=== PATIENT | male | born 1985 | race American Indian/Alaskan Native ===

== ENCOUNTER 2019-04-25 22:01 | Inpatient (IN) | payer MEDICAID, OTHER, SELFPAY ==
[2019-04-25 22:03] VITALS: BP 136/90; PULSE 135; RESP 24; TEMP 37.3; O2SAT 96
--- NOTE | 2019-04-25 22:09 | DI.RAD.S_ITS ---
PROCEDURE: XR ABDOMEN 1V INDICATIONS: vomiting TECHNIQUE: One view of the abdomen acquired. COMPARISON: [facility], , ABDOMEN 2 VIEW, 05/12/2015, 17:18. FINDINGS: Surgical changes and devices: None. Bowel: Multiple dilated loops of bowel noted in the right upper and lower abdomen. No radiographic evidence for free air. Soft tissues: No suspicious abdominal calcifications. Visualized solid organ contours appear normal in size. Bones: No suspicious bony lesions. IMPRESSION: Multiple dilated loops of bowel in the right abdomen possibly representing small bowel obstruction versus ileus. Dictated by: Devon Apple M.D. on 04/26/2019 at 8:51 Approved by: Devon Apple M.D. on 04/26/2019 at 8:53
[2019-04-25] MEDS: ONDANSETRON 4 MG/2 ML INJ IV (22:16)
[2019-04-25] MEDS: SODIUM CHLORIDE 0.9% 1,000 ML 1000 ML IV ×2 (22:16→23:16)
[2019-04-25 22:39] LABS: Hematocrit 48.2 % (41-53); Hemoglobin 16.1 g/dL (13.5-17.5); Mean Corpuscular HGB Conc 33.5 % (30-36); Mean Corpuscular Hemoglobin 28.8 PG (26-34); Platelet Count 388 X10^3/uL (150-400); Red Cell Distribution Width 14.9 % (11.6-14.8); White Blood Cell Count 7.8 X10^3/uL (4.5-11.0)
[2019-04-25 22:40] LABS: Add Manual Diff / Slide Review YES
[2019-04-25 22:45] LABS: Blood Urea Nitrogen 54 mg/dL (9-20); Calcium 9.8 mg/dL (8.4-10.2); Carbon Dioxide 20 mmol/L (22-32); Chloride 109 mmol/L (98-107); Estimated Glomerular Filt Rate 43.2 mL/min (>60); Glucose 147 mg/dL (70-100); HEMOLYSIS 16 (0-50); Potassium 3.8 mmol/L (3.4-5.1); Sodium 146 mmol/L (137-145)
[2019-04-25 23:10] LABS: Anisocytosis 1+; Neutrophils Absolute Manual 5694 /uL (3000-5900); RBC Morphology sb; Total Cells Counted 100
--- NOTE | 2019-04-25 23:27 | ED_ITS ---
HPI - Nausea/Vomiting/Diarrhea General Chief complaint: Nausea/Vomiting/Diarrhea Stated complaint: nausea Time Seen by Provider: 04/25/19 22:02 Source: family Mode of arrival: wheelchair Limitations: language barrier History of Present Illness HPI Narrative: 34-year-old male with history of tuberous sclerosis presents with mother and brother and a chief complaint of multiple episodes of vomiting since yesterday. He is not in any perceived pain. He has had no fever or change in bowel habits. He has been exposed to other ill persons with similar symptoms. He has had no recent antibiotics, exposure to bad food or other MD complaint: vomiting Onset (ago): day(s) Description of Vomiting: food contents Description of Diarrhea: watery Related Data Home Medications Medication Instructions Recorded Confirmed baclofen 0 PO SEE INSTRUCTIONS PRN 04/26/19 loratadine 10 mg PO DAILY 04/26/19 04/26/19 Previous Rx's Medication Instructions Recorded Wheelchair: Manual Lightweight 0 dev #1 05/16/13 [Ensure] #90 05/16/13 oxcarbazepine [Trileptal] 600 mg PO BID #120 tab 07/26/17 topiramate [Topamax] 0 PO QDAY #90 tab 07/26/17 polyethylene glycol 3350 [Miralax] 17 gm PO QDAY #1 bot 08/29/17 bisacodyl [Dulcolax (bisacodyl)] 10 mg LA Q DAY PRN PRN #15 sup 12/26/17 Vimpat 150 mg PO BID #60 tab 01/31/18 Allergies Allergy/AdvReac Type Severity Reaction Status Date / Time lamotrigine [LAMOTRIGINE] Allergy Mild Verified 04/25/19 22:10 tramadol [TRAMADOL] Allergy Mild RASH Verified 04/25/19 22:10 ibuprofen [IBUPROFEN] AdvReac Mild UPSET Verified 04/25/19 22:10 STOMACH Review of Systems Review of Systems patient non-verbal. ROS is from family at bedside Constitutional Reports anorexia and Reports fever(s) Gastrointestinal Gastrointestinal: Reports vomiting PFSH Social History household members: family and caregiver Smoking Status: Never smoker alcohol intake: never Exam Narrative Exam Narrative: GENERAL: Chronically-ill 34-year-old male in no obvious distress HEAD: Atraumatic. Normocephalic. No temporal or scalp tenderness. EYES: Pupils equal round and reactive. Extraocular motions intact. No scleral icterus. No injection or drainage. ENT: Dry mucous membranes Nose without bleeding, purulent drainage or septal hematoma. Throat without erythema, tonsillar hypertrophy or exudate. Uvula midline. Airway patent. NECK: Trachea midline. No JVD or lymphadenopathy. Supple, nontender, no meningeal signs. CARDIOVASCULAR: Regular rate and rhythm without murmurs, gallops, or rubs. RESPIRATORY: Clear to auscultation. Breath sounds equal bilaterally. No wheezes, rales, or rhonchi. GASTROINTESTINAL: Abdomen soft, non-tender, nondistended. Decreased bowel sounds. EXTREMITIES: No clubbing, cyanosis, or edema. No joint tenderness, effusion, or edema noted. BACK: Nontender without deformity or crepitance. No flank tenderness. SKIN: No rash or erythema. Initial Vital Signs Initial Vital Signs: Vital Signs Temperature 99.2 F 04/25/19 22:03 Pulse Rate 135 H 04/25/19 22:03 Respiratory Rate 24 04/25/19 22:03 Blood Pressure 136/90 04/25/19 22:03 Pulse Oximetry 96 04/25/19 22:03 Course Orders Ordered: ED Orders 04/25/19 22:09 XR abdomen 1V Stat 04/25/19 22:20 Basic Metabolic Panel Stat Complete Blood Count AUTO DIFF Stat 04/26/19 01:30 MRSA PCR Stat 04/26/19 05:00 Basic Metabolic Panel Stat Complete Blood Count AUTO DIFF Stat Magnesium Stat Sodium Chloride (Normal Saline 0.9%) 1,000 mls @ 75 mls/hr IV CONT ZHANG Last Admin: 04/26/19 02:30 Dose: 75 mls/hr Ondansetron HCl (Zofran) 4 mg IV Q4HR PRN PRN Reason: Nausea And Vomiting Last Admin: 04/26/19 03:55 Dose: 4 mg Admin: 04/25/19 22:16 Dose: 4 mg Ondansetron HCl (Zofran) 4 mg IV Q4HR PRN PRN Reason: Nausea And Vomiting Discontinued Medications Sodium Chloride (Normal Saline 0.9%) 1,000 mls @ 1,000 mls/hr IV BOLUS ONE Stop: 04/25/19 23:08 Last Infusion: 04/25/19 23:12 Dose: 0 mls/hr Admin: 04/25/19 22:16 Dose: 1,000 mls/hr Sodium Chloride (Normal Saline 0.9%) 1,000 mls @ 1,000 mls/hr IV BOLUS ONE Stop: 04/26/19 00:13 Last Infusion: 04/26/19 00:23 Dose: 0 mls/hr Admin: 04/25/19 23:16 Dose: 1,000 mls/hr Lorazepam (Ativan) 1 mg IV NOW ONE Stop: 04/26/19 00:29 Last Admin: 04/26/19 00:48 Dose: 1 mg Ondansetron HCl (Zofran) 4 mg IV Q4HR PRN PRN Reason: Nausea And Vomiting Last Admin: 04/26/19 00:23 Dose: 4 mg Reevaluation(s) Reevaluation #1: HR down to 100s after 1.5L. attempt to place NG, but patient fought and was very resistant Consultations Consultation #1: call to Gen Surg (Dr. Rodriguez) whom is happy to accept on his service. He requests NG tube, morning labs Vital Signs - 8 hr 04/25/19 22:03 04/26/19 00:06 04/26/19 00:51 Temperature 99.2 F Pulse Rate 135 H 104 H 106 H Respiratory Rate 24 20 Blood Pressure 136/90 Blood Pressure [Right Arm] 121/85 Pulse Oximetry 96 98 97 04/26/19 02:09 Temperature 98.4 F Pulse Rate 103 H Respiratory Rate 20 Blood Pressure 121/56 L Blood Pressure [Right Arm] Pulse Oximetry 97 MDM - Nausea/Vomiting/Diarrhea Lab Data Result diagrams: 04/25/19 22:20 04/25/19 22:20 Lab Results 04/25/19 04/25/19 04/26/19 Range/Units 22:20 22:20 01:30 WBC 7.8 (4.5-11.0) X10^3/uL RBC 5.60 (4.5-5.9) X10^6/uL Hgb 16.1 (13.5-17.5) g/dL Hct 48.2 (41-53) % MCV 86.0 (80-100) fL MCH 28.8 (26-34) PG MCHC 33.5 (30-36) % RDW 14.9 H (11.6-14.8) % Plt Count 388 (150-400) X10^3/uL Neut % (Auto) Not Reportable Lymph % (Auto) Not Reportable [place] % (Auto) Not Reportable Eos % (Auto) Not Reportable Baso % (Auto) Not Reportable Lymph # (Auto) Not Reportable [place] # (Auto) Not Reportable Baso # (Auto) Not Reportable Total Counted 100 Seg Neutrophils % 37.0 L (38-70) % Band Neutrophils % 36.0 H (3-7) % Lymphocytes % (Manual) 12.0 L (25-45) % Monocytes % (Manual) 15.0 H (2-11) % Neutrophils # (Manual) 5694 (7076-1752) /uL RBC Morphology sb Anisocytosis 1+ H Sodium 146 H (137-145) mmol/L Potassium 3.8 (3.4-5.1) mmol/L Chloride 109 H (98-107) mmol/L Carbon Dioxide 20 L (22-32) mmol/L BUN 54 H (9-20) mg/dL Creatinine 1.80 H (0.66-1.25) mg/dL Estimated GFR 43.2 L (>60) mL/min BUN/Creatinine Ratio 30.0 H (6-22) Glucose 147 H (70-100) mg/dL Calcium 9.8 (8.4-10.2) mg/dL Nasal Screen MRSA (PCR) Positive for mrsa H (Negative) Imaging Data Abdominal x-ray: Attestation: I personally reviewed and interpreted this imaging study as follows: My impression: SBO Discharge Plan Departure Patient Disposition: Admitted As Inpatient Clinical Impression: Bowel obstruction Qualifiers: Intestinal obstruction type: unspecified Intestinal obstruction extent: unspecified extent Qualified Code(s): K56.609 - Unspecified intestinal obstruction, unspecified as to partial versus complete obstruction Discharge Date/Time: 04/26/19 01:16 Interventions: ED Discharge Assessment Last Done: 04/26/19 01:15 Admit Date/Time: 04/26/19 00:44 Admit Provider: Stefan Rodriguez
[2019-04-26] VITALS (14 sets, daily range): BP systolic 118–151; BP diastolic 56–110; PULSE 98–121; RESP 15–24; TEMP 36.4–37.2; O2SAT 92–100
[2019-04-26] MEDS: ONDANSETRON 4 MG/2 ML INJ IV ×2 (00:23→03:55)
[2019-04-26] MEDS: LORazepam 2 MG/ML INJ 1 MG IV ×3 (00:48→23:29)
[2019-04-26] MEDS: SODIUM CHLORIDE 0.9% 1,000 ML 75 ML IV (02:30)
[2019-04-26 05:13] LABS: Mean Corpuscular HGB Conc 33.4 % (30-36); Mean Corpuscular Hemoglobin 28.8 PG (26-34); Mean Corpuscular Volume 86.2 fL (80-100); Platelet Count 316 X10^3/uL (150-400); Red Blood Cell Count 4.52 X10^6/uL (4.5-5.9); Red Cell Distribution Width 14.5 % (11.6-14.8); White Blood Cell Count 6.5 X10^3/uL (4.5-11.0)
[2019-04-26 05:14] LABS: Add Manual Diff / Slide Review YES
[2019-04-26 05:19] LABS: BUN Creatinine Ratio 28.6 (6-22); Blood Urea Nitrogen 40 mg/dL (9-20); Carbon Dioxide 23 mmol/L (22-32); Chloride 116 mmol/L (98-107); Estimated Glomerular Filt Rate 57.7 mL/min (>60); Glucose 120 mg/dL (70-100); HEMOLYSIS < 15 (0-50); Magnesium 2.4 mg/dL (1.6-2.3); Potassium 3.5 mmol/L (3.4-5.1); Sodium 146 mmol/L (137-145)
[2019-04-26 06:03] LABS: Anisocytosis 1+; Neutrophils Absolute Manual 4615 /uL (3000-5900); Total Cells Counted 100
--- NOTE | 2019-04-26 06:33 | PC.NURSE ---
NOC Shift: Pt 34 yr old developmentally delayed non verbal man with previous history of ABD surgery over 10 years ago after swallowing small toy objects per Mom. No having had several days of emesis, nausea, constipation and lack of appetite came to ED pt diagnosed w/SBO obstruction. Unable to place NG in ED, pt is non coopertive, needs several people to immobilize while placing NG. 14 F NG placed w/o problems to LIS for dark brown possibly coffee ground output. Once tube secured pt left NG alone. Needs close OBS to keep tube in. Pt unable to comprehend situation. NPO, BT's hypoactive. VSS, low grade temp at times. IVF's started. Incontinent baseling voiding wears attends. Pt is known to be ambulatory per Mom, has spastic motion of all limbs. Also with noted history of seizures can have them daily or not at all depends on pt's health. Per Mom pt will have increased seizure activity when he doesn't feel well. They are usually short in duration w/small tremors or stiffening extremities. Pt does take anti-seizure meds. Unable to assess for pain, however pt is more restless, agitated when awake and moans. Dr. Rodriguez to eval this AM.
[2019-04-26] MEDS: LACTATED RINGERS 500 ML 1000 ML IV (07:44)
[2019-04-26] MEDS: OXcarbazepine 150 MG TABLET 600 MG PO ×2 (08:12→22:20)
--- NOTE | 2019-04-26 09:08 | DI.CT.S_ITS ---
PROCEDURE: CT ABDOMEN PELVIS W CON INDICATIONS: bowel obstruction, bandemia TECHNIQUE: After the administration of intravenous contrast, 5 mm thick sections acquired from the diaphragm to the symphysis. 5 mm coronal and sagittal reformats were acquired. For radiation dose reduction, the following was used: automated exposure control, adjustment of mA and/or kV according to patient size. COMPARISON: [facility], CR, XR ABDOMEN 1V, 04/25/2019, 23:06. [facility], CT, ABDOMEN/PELVIS WITH CONTRAST, 05/02/2009, 7:49. FINDINGS: Image quality: There is mild motion artifact. ABDOMEN: Lung bases: There is mild dependent atelectasis. There is a small nodular opacity posteriorly in the right lower lobe measuring 4 mm on series 3 image 10. Heart size is normal. There is a small to moderate size hiatal hernia. Mild fluid distention of the visualized distal esophagus is noted with an air-fluid level. A nasogastric tube is in place extending into the stomach. Solid organs: No focal hepatic lesions. The gallbladder is distended without calcified gallstones or wall thickening. Biliary system is non dilated. Pancreas enhances normally. No pancreatic duct dilatation. Spleen is normal in size and enhancement. No adrenal nodules. Kidneys demonstrate no hydronephrosis. There is a probable hyperdense cyst posteriorly in the right kidney measuring up to 1.0 cm which appears similar to the prior CT. There are smaller slightly hypoattenuating foci also demonstrated bilaterally which also likely represent complex cysts.. Peritoneum and bowel: There is fluid distention of the stomach and small bowel, with small bowel loops measuring up to approximately 7.2 cm in diameter associated with a surgical anastomosis in the right lower quadrant. There are multiple associated air-fluid levels. There is fecalization within the distal small bowel in the midline in the pelvis with an associated transition point centered on series 2 image 75 just proximal to the terminal ileum. The cecum is displaced into the left hemiabdomen with an inverted configuration. There are short segments of mild colonic wall thickening in the sigmoid colon which may reflect a mild colitis. Marked colonic stool distention is noted in the rectum and distal sigmoid colon suggestive of impaction. No free air or free fluid. Nodes and vessels: No retroperitoneal or mesenteric adenopathy by size criteria. Aorta and inferior vena cava are normal in size. Miscellaneous: No ventral hernias. PELVIS: Genitourinary: Bladder wall thickness is normal. Miscellaneous: No inguinal hernias or adenopathy. Bones: No suspicious bony lesions. No vertebral body compression fractures. IMPRESSION: 1. Findings consistent with a small bowel obstruction, likely high-grade, with a transition point in the distal small bowel just proximal to the terminal ileum located along the midline in the lower abdomen. Findings may be related to adhesions. 2. Associated displacement of the cecum into the left abdomen with an inverted configuration is suggestive of a cecal bascule. No evidence of associated colonic obstruction. 3. Short segment of mild colonic wall thickening distally may reflect a mild colitis. Stool distention in the rectosigmoid colon may reflect impaction. 4. Probable hyperdense cysts in the kidneys bilaterally. 5. Small to moderate size hiatal hernia. Dictated by: William Gann M.D. on 04/26/2019 at 9:24 Approved by: William Gann M.D. on 04/26/2019 at 9:46
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
--- NOTE | 2019-04-26 10:12 | PC.NURSE ---
Addendum entered by Prisca Adan R.N. 04/26/19 12:46: ngt pulled out by pt- replaced with 16fr right nare with assist from staff and pts father- continues to drain bile-like material Original Note: pt tolerated approx 400cc of po contrast via ngt prior to ct scan- he did have emesis of approx 100cc just prior to scan- he continues to have intermittent hiccups- incont of urine, also receiving iv bolus of LR. TELEPHONE CALL FROM DR. MELENDEZ (RADIOLOGY) R/T CT SCAN- message left with corporate legal intern - who left note also, called in to circulating rn to make sure nothing was urgent. no new orders at this time
--- NOTE | 2019-04-26 15:50 | P.HP_ITS ---
History of Present Illness Date Patient Seen: 04/26/19 Time Patient Seen: 07:00 Chief complaint: nausea Narrative: 34 yo nonverbal man with developmental delay and tuberous sclerosis with a seizure disorder in this setting he presented to ER overnight with over 24hrs of vomiting. Of note pt has a history of bowel resection after ingesting a hackie sac and pen cap via a large midline laperotomy incision 10yrs ago. A NGT was placed with ongoing bilious output. Over the morning the pt has had ongoing hiccups and intermittent tackycardia. He has not been febrile. Unable to obtain detailed history. CT scan this am demonstrated multiple dilated small bowel loops with high grade obstruction in the distal ileum posteriorly. Social situation is complex - Per state of [place] DPOA is maternal grandfather who is not present or immediately available. He is however en route at some point. His biologic mother is present as is step father. Both are quite concerned. Patient History Medical History (Updated 04/26/19 @ 16:30 by Stefan Rodriguez MD) Developmental delay of gross and fine motor function (Acute) Seizure (Acute) Tuberous sclerosis (Acute) Surgical History (Updated 04/26/19 @ 16:30 by Stefan Rodriguez MD) H/O brain surgery (Acute) History of intestinal surgery (Acute) Social History household members: family and caregiver Smoking Status: Never smoker alcohol intake: never Family & Social History Social History: household members family,caregiver Prior Living Arrangements House Safety & Behavioral: Feels Safe in Current Yes Environment Been Physically Hurt or No Threatened By a Person Suicidal Ideation Description None Suicide Plan Description No Plan Tobacco & Substance use: Smoking Status Never smoker alcohol intake never Substance Use Type does not use Meds Home Medications Medication Instructions Recorded Confirmed Type Vimpat 150 mg PO BID #60 tab 01/31/18 04/26/19 Rx Wheelchair: Manual Lightweight 1 dev MISCELLANEOUS DIRECTED 04/26/19 04/26/19 History [Ensure] 1 ea PO DIRECTED 04/26/19 04/26/19 History baclofen 0 tab PO SEE INSTRUCTIONS PRN 04/26/19 04/26/19 History bisacodyl [Dulcolax (bisacodyl)] 10 mg [place] PRN PRN 04/26/19 04/26/19 History loratadine 10 mg PO DAILY 04/26/19 04/26/19 History oxcarbazepine 600 mg PO BID 04/26/19 04/26/19 History polyethylene glycol 3350 [Miralax] 17 gm PO DAILY 04/26/19 04/26/19 History topiramate 100 mg PO BEDTIME 04/26/19 04/26/19 History topiramate [Topamax] 200 mg PO QAM 04/26/19 04/26/19 History Allergies Allergy/AdvReac Type Severity Reaction Status Date / Time lamotrigine [LAMOTRIGINE] Allergy Mild Verified 04/25/19 22:10 tramadol [TRAMADOL] Allergy Mild RASH Verified 04/25/19 22:10 ibuprofen [IBUPROFEN] AdvReac Mild UPSET Verified 04/25/19 22:10 STOMACH Review of Systems Review of Systems unobtainable due to mental status Exam Vital Signs (past 8 hours): - 04/26/19 07:55 04/26/19 11:38 Temperature 98.6 F 98.7 F Pulse Rate 111 H 98 H Respiratory Rate 18 Blood Pressure 142/87 H 132/78 Pulse Oximetry 96 97 Oxygen Delivery Method Room Air Narrative Exam Narrative: unwell, uncomfortable, grinding teath, Const Orientation: confused [facility] Head: normal to inspection Nose: nares normal Mouth: oral mucosae normal and lip normal Eyes Eyelids: eyelids normal Conjunctivae: conjunctivae normal Sclera: sclerae normal Neck Neck: other (No thyromegally) Chest Chest: other (LCTAB , regular respiratory effort) Cardio Rhythm: regular rhythm Heart Sounds: S1 normal, S2 normal, no gallops, no murmurs and no rubs GI Other: abd with midline laperotomy incision well healed, distended, no masses, no BS, no HSM non tender but upon performing other noxious stimuli - nail compression - no discomfort noted as well. Skin General: no rashes or lesions noted Neuro General: alert and awake Psych Appearance: grossly normal Affect: normal affect Objective Labs Result Diagrams: 04/26/19 04:49 04/26/19 04:49 Labs: Laboratory Results - last 24 hr 04/25/19 04/25/19 04/26/19 22:20 22:20 01:30 WBC 7.8 RBC 5.60 Hgb 16.1 Hct 48.2 MCV 86.0 MCH 28.8 MCHC 33.5 RDW 14.9 H Plt Count 388 Neut % (Auto) Not Reportable Lymph % (Auto) Not Reportable [place] % (Auto) Not Reportable Eos % (Auto) Not Reportable Baso % (Auto) Not Reportable Lymph # (Auto) Not Reportable [place] # (Auto) Not Reportable Baso # (Auto) Not Reportable Total Counted 100 Seg Neutrophils % 37.0 L Band Neutrophils % 36.0 H Lymphocytes % (Manual) 12.0 L Monocytes % (Manual) 15.0 H Eosinophils % (Manual) Myelocytes % Neutrophils # (Manual) 5694 RBC Morphology sb Anisocytosis 1+ H Sodium 146 H Potassium 3.8 Chloride 109 H Carbon Dioxide 20 L BUN 54 H Creatinine 1.80 H Estimated GFR 43.2 L BUN/Creatinine Ratio 30.0 H Glucose 147 H Calcium 9.8 Magnesium Nasal Screen MRSA (PCR) Positive for mrsa H 04/26/19 04/26/19 04:49 04:49 WBC 6.5 RBC 4.52 Hgb 13.0 L Hct 39.0 L MCV 86.2 MCH 28.8 MCHC 33.4 RDW 14.5 Plt Count 316 Neut % (Auto) Not Reportable Lymph % (Auto) Not Reportable [place] % (Auto) Not Reportable Eos % (Auto) Not Reportable Baso % (Auto) Not Reportable Lymph # (Auto) Not Reportable [place] # (Auto) Not Reportable Baso # (Auto) Not Reportable Total Counted 100 Seg Neutrophils % 36.0 L Band Neutrophils % 35.0 H Lymphocytes % (Manual) 14.0 L Monocytes % (Manual) 13.0 H Eosinophils % (Manual) 1.0 L Myelocytes % 1.0 H Neutrophils # (Manual) 4615 RBC Morphology See below Anisocytosis 1+ H Sodium 146 H Potassium 3.5 Chloride 116 H Carbon Dioxide 23 BUN 40 H Creatinine 1.40 H Estimated GFR 57.7 L BUN/Creatinine Ratio 28.6 H Glucose 120 H Calcium 8.0 L Magnesium 2.4 H Nasal Screen MRSA (PCR) Assessment & Plan Assessment & Plan narrative: 34 yo non verbal man with prior exlap 10yrs ago for bowel obstruciton after foreign body ingestion. Now with high grade obstruction on imaging in the setting of an uncomfortable, non examine able pt with intermittent tachycardia and a 35% bands on diff. Due to worrisome features in pt cannot clearly follow - prudent decision is to operate. Mother desires surgery. Discussed risks and benifits incluidng bleeding infection injury to bowel or other stuctures, aspiration. Mother signed consent. DPOA - Maternal grandfather on route. Given risks of delay - will move forward Quality VTE Deep Vein Thrombosis/Pulmonary Embolism Present on Admission: No
--- NOTE | 2019-04-26 18:51 | PC.NURSE ---
Addendum entered by Mimi Thomas R.N. 04/26/19 22:43: 2240 - Patient recovered in room by PACU nurse. Dressing and binder to abdomen C/D/I. Cummings in place. NG tube remains in place. SCD's on. IV fluids running per orders. No signs of pain noted at this time. Original Note: 1850 - Patient taken to surgery by surgical staff.
[2019-04-26] MEDS: LACTATED RINGERS 1,000 ML 42 ML IV ×2 (19:50→20:13)
--- NOTE | 2019-04-26 19:52 | SUR.OPER ---
Supine on padded OR bed, head on pillow, arms secured on padded arm boards at <90 degrees abduction, legs uncrossed, safety belt at thigh, pillow under knees, tape over blanket over lower legs.
[2019-04-26] MEDS: CEFAZOLIN 2 GM/100 ML FROZ.PIGGY IV (19:55)
[2019-04-26] MEDS: metroNIDAZOLE 500 MG/100 ML PIGGYBACK 100 MG IV (20:27)
[2019-04-26] MEDS: CEFTRIAXONE 2 GM/50 ML FROZ.PIGGY IV (20:33)
--- NOTE | 2019-04-26 21:30 | PM.OP.1 ---
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 He presented to the emergency department with over 24 hours of nausea and emesis. On CT scan he was found to have what appeared to be a high-grade bowel obstruction in the terminal ileum. A large amount of stool within the rectum. In the ICU who is becoming progressively ill and consequently taken to the operating room. 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 Majority of small bowel in the right abdomen. No true ligament of Treitz 4) hard inspissated stool within the rectum Closure Type: primary Specimen(s): none sent Estimated Blood Loss (mL): 20 Procedure in detail: Patient was brought to the operating room he was intubated without incident. He was prepped and draped in the usual sterile fashion and time-out was completed. His previous midline laparotomy incision was then opened sharply fascia just above the umbilicus the linia alba was scored and then elevated with Preston clamps. With careful meticulous dissection using Metzenbaum. The peritoneum was opened, a finger sweep confirmed the absence of significant localized adhesive disease the finger was slowly advanced along the entire length of the incision from approximately the mid point between the xiphoid process in the umbilicus to approximately the midpoint between the umbilicus and the pubic symphysis. Upon inspection of the abdominal contents the small bowel was markedly distended hyperemic but viable. A loop of small bowel was grasped and was traced running and eviscerating the bowel at this same time period. There were some adhesive bands but overall there was a paucity of adhesive disease. Significant adhesions when encountered were lysed using primarily sharp dissection. Ultimately as we progressed we learned we were progressing distally. The terminal ileum was encountered and then the cecum. The appendix had been removed. The cecum was in the left abdomen. The entirety of the large bowel was then run. The entire large bowel was decompressed but there was significant hard stool within it -particularly volumous within the rectum. As we are running this bowel we encountered an area of soft but quite firm material approximately 10 cm from the ileal cecal valve within the terminal ileum. It appeared that this was the cause of the obstruction. However we proceeded to run the bowel in the opposite direction proceeding proximally following up high into the right upper quadrant and eventually into what was felt to be the distal duodenum. Of note there was no ligament of Treitz with the junction between the duodenum and jejunum occurring in the right upper quadrant without an over bridging transverse mesocolon. At this point we elected to perform a 2-1/2 cm enterotomy in transverse orientation and extract the obstructing contact. Two tacking sutures were applied on the anti mesenteric aspect of the terminal ileum they were placed under tension and the terminal ileum was split using electrocautery. The area had previously been toweled off. Using a ring forceps 3 fiberous sanitary wipes were extracted from the lumen of the terminal ileum. The lumen was palpated there are no residual masses within it. A significant degree of the intraluminal fluid was suctioned out. The enterotomy was then closed in a double-layer fashion transversely. Mucosal layer of 3 0 Vicryl, seromuscular layer of interrupted 3 0 silk. The repair was palpated and the lumen found to be well open. At this point we turned our attention to the inspissated stool within the rectum. With a finger from below and pressure from above several significant balls of stool were extracted manually. The remaining stool appeared to be rather soft. The intestines were then placed back within the abdomen. Abdomen was copiously irrigated. Fascia closed using 0 PDS suture in a simple continuous running fashion. Subcutaneous tissue irrigated and skin closed using rafael. Patient was extubated without incident Complications: none Condition: critical Disposition: ICU Plan for aftercare: NG tube decompression NPO Enemas
[2019-04-26] MEDS: fentaNYL 100 MCG/2 ML INJ 50 MCG IV ×2 (22:10→22:15)
--- NOTE | 2019-04-26 22:18 | SUR.PHASEI ---
recovery in icu rom 102 due to pt isolation
[2019-04-26] MEDS: HYDROMORPHONE 1 MG INJ 0.5 MG IV (23:29)
[2019-04-26] MEDS: LACTATED RINGERS 1,000 ML 75 ML IV (23:44)
[2019-04-27] VITALS (25 sets, daily range): BP systolic 113–153; BP diastolic 60–90; PULSE 111–150; RESP 14–22; TEMP 36.7–37.9; O2SAT 88–100
[2019-04-27] MEDS: levETIRAcetam 1,000 MG in SODIUM CHLORIDE 0.9% 100 ML 440 ML IV ×4 (00:02→23:32)
[2019-04-27] MEDS: HYDROMORPHONE 1 MG INJ 0.5 MG IV ×5 (01:15→07:40)
--- NOTE | 2019-04-27 01:17 | PC.NURSE ---
Addendum entered by Radha Reyes R.N. 04/27/19 06:52: Dr. Humphreys updated on overnight events including HR, temp, fluid status and NGT removal. Orders received and carried out. NGT replaced, 16 FR without difficulty. PCXR done at bedside to confirm placement and then reconnected to LIWS. IVF bolus infusing. Addendum entered by Radha Reyes R.N. 04/27/19 06:22: Tmax 100.3 - tylenol per orders. Last check was 99.9 oral. HR trending up throughout the shift up to the 140's. Pt also managed to discontinue his NGT while this RN was in the middle of paging the doctor. Awaiting MD call back. Original Note: Pt very agitated and restless at start of shift, thrashing around and attempting to pull at NGT. Medicated per orders with ativan and dilaudid as well as unclamped NGT per protocol. Initially, this seemed to calm and make him comfortable but approximately 40 minutes later pt was very restless again. Dr. Humphreys notified and orders received to change dilaudid and ativan order frequency. Mother remains at bedside, will monitor closely.
[2019-04-27] MEDS: LORazepam 2 MG/ML INJ 1 MG IV ×6 (03:00→23:31)
[2019-04-27] MEDS: ACETAMINOPHEN 650 MG SUPP PR (03:08)
[2019-04-27 05:26] LABS: Hematocrit 42.7 % (41-53); Mean Corpuscular HGB Conc 32.8 % (30-36); Mean Corpuscular Hemoglobin 28.5 PG (26-34); Mean Corpuscular Volume 86.9 fL (80-100); Platelet Count 312 X10^3/uL (150-400); Red Blood Cell Count 4.92 X10^6/uL (4.5-5.9); Red Cell Distribution Width 15.1 % (11.6-14.8); White Blood Cell Count 4.6 X10^3/uL (4.5-11.0)
[2019-04-27 05:31] LABS: BUN Creatinine Ratio 17.1 (6-22); Blood Urea Nitrogen 24 mg/dL (9-20); Calcium 7.9 mg/dL (8.4-10.2); Carbon Dioxide 21 mmol/L (22-32); Chloride 117 mmol/L (98-107); Estimated Glomerular Filt Rate 57.7 mL/min (>60); Glucose 106 mg/dL (70-100); HEMOLYSIS < 15 (0-50); Potassium 3.4 mmol/L (3.4-5.1); Sodium 146 mmol/L (137-145)
[2019-04-27 05:32] LABS: Add Manual Diff / Slide Review YES
[2019-04-27 06:03] LABS: Neutrophils Absolute Manual 3818 /uL (3000-5900); Total Cells Counted 100
[2019-04-27 06:04] LABS: Anisocytosis 1+
--- NOTE | 2019-04-27 06:39 | DI.RAD.S_ITS ---
PROCEDURE: XR CHEST 1V INDICATIONS: NG tube placement verification TECHNIQUE: One view of the chest was acquired. COMPARISON: [facility], , CHEST 1VW (PORTABLE), 06/02/2009, 6:56. FINDINGS: Surgical changes and devices: There is a nasogastric tube in stomach. A right IJ central line is noted. Lungs and pleura: There is right hemidiaphragm elevation. Left basilar opacity may be infiltrate or atelectasis. No pleural effusions or pneumothorax. Mediastinum: Mediastinal contours appear normal. Heart size is normal. Bones and chest wall: Scoliosis. No suspicious bony lesions. Overlying soft tissues appear unremarkable. IMPRESSION: Nasogastric tube in stomach. Left basilar infiltrate or atelectasis. Dictated by: Julia Dyer M.D. on 04/27/2019 at 8:31 Approved by: Julia Dyer M.D. on 04/27/2019 at 8:33
[2019-04-27] MEDS: ONDANSETRON 4 MG/2 ML INJ IV (06:44)
[2019-04-27] MEDS: SODIUM CHLORIDE 0.9% 500 ML 1000 ML IV (06:45)
[2019-04-27] MEDS: CEFOTETAN 1 GM/50 ML PIGGYBACK IV (08:06)
[2019-04-27] MEDS: POLYETHYLENE GLYCOL 3350 17 GM POWD.PACK PO (08:07)
[2019-04-27] MEDS: ENOXAPARIN 40 MG/0.4 ML SYRINGE SUBCUT (08:07)
[2019-04-27] MEDS: HYDROMORPHONE 0.5 MG INJ IV ×6 (09:02→23:31)
--- NOTE | 2019-04-27 09:16 | PC.NURSE ---
Addendum entered by Prisca Adan R.N. 04/27/19 11:23: both 's tabler/estuardo at bedside- increased ivf to 100cc/h per order- replaced ngt per md order and no other orders recieved heart rate remains 151 and o2 spo2 @ 89-91% on 6l nc Addendum entered by Prisca Adan R.N. 04/27/19 10:25: repaged md at [address] walters called back with orders for LR 500CC AND 1MG DILAUDID- HEART RATE CONTINUES AT 150 BPM AND CONTINUED HICCUPS, ALSO HAD TO PLACE ON 4L NC DUE TO OXYGEN DESATURATION 90-92% ON 4L NC- ANOTHER PAGE TO MD TO UPDATE ABOVE CONDITION WELL ONLY 80CC LIA UOP SINCE 629 Original Note: paged md at 0800 due to increased and maintained hr of >140 bpm - continued with care and medicated as often as md orders allowed as pt is squirming about in bed and has legs drawn up to torso. DadOswald, at bedside and very concerned and feels this is pain oriented behavior-also, noted post miralax administration pt had pulled out yet another ngt- awaiting call back prior to replacement
[2019-04-27] MEDS: HYDROMORPHONE 1 MG INJ IV (09:58)
[2019-04-27] MEDS: LACTATED RINGERS 1,000 ML 500 ML IV ×3 (09:59→17:13)
--- NOTE | 2019-04-27 11:17 | P.PN_ITS ---
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 He is non-verbal but is in no apparent distress. He had some anxiety overnight and responded to pain and anxiolytic medications. Heart rate has been increasing through the morning hours but BP remains normal and labs unremarkable for Hg loss or electrolyte imbalance. His UOP is running low so fluids increased. He has also developed hiccups which per observer electrical prospecting happens with some frequency for him. He is afebrile and has no signs of infection or DVT on exam. His abdomen is flat and fairly soft. He has pulled his NGT twice overnight; discussion was had pre-operatively about bridling but family did not want this as their concern was his high pain tolerance would lead to him damaging his nasal passage by pulling too hard. He did have a brief seizure this morning witnessed by his observer electrical prospecting; this happens a few times a week on average and kept with his normal presentation. Exam Vital Signs (past 8 hours): - 04/27/19 03:58 04/27/19 04:48 04/27/19 04:49 Temperature 99.9 F H 99.9 F H Pulse Rate 145 H 139 H Respiratory Rate 22 19 Blood Pressure 131/78 124/78 Pulse Oximetry 96 94 04/27/19 06:07 04/27/19 06:58 04/27/19 07:30 Temperature 99.1 F Pulse Rate 140 H 139 H 145 H Respiratory Rate 18 18 15 Blood Pressure 133/77 133/77 136/88 Pulse Oximetry 100 98 97 04/27/19 07:40 Temperature 99.1 F Pulse Rate Respiratory Rate Blood Pressure Pulse Oximetry Oxygen Delivery Method Nasal Cannula Oxygen Flow Rate 0 Narrative Exam Narrative: awake but non-verbal patient; thin young male MMM, no scleral icterus unlabored 4 LNC flat, fairly soft abd; inc c/d/i with no drainage or signs of infection contracted limbs, soft calves; scoliosis visible skin dry and intact; no breakdown/ rash/ signs of infection or ischemia Objective Labs Result Diagrams: 04/27/19 04:55 04/27/19 04:55 Labs: Laboratory Results - last 24 hr 04/27/19 04/27/19 04:55 04:55 WBC 4.6 RBC 4.92 Hgb 14.0 Hct 42.7 MCV 86.9 MCH 28.5 MCHC 32.8 RDW 15.1 H Plt Count 312 Neut % (Auto) Not Reportable Lymph % (Auto) Not Reportable [place] % (Auto) Not Reportable Eos % (Auto) Not Reportable Baso % (Auto) Not Reportable Lymph # (Auto) Not Reportable [place] # (Auto) Not Reportable Baso # (Auto) Not Reportable Total Counted 100 Seg Neutrophils % 53.0 Band Neutrophils % 30.0 H Lymphocytes % (Manual) 13.0 L Monocytes % (Manual) 3.0 Eosinophils % (Manual) 1.0 L Neutrophils # (Manual) 3818 RBC Morphology See below Anisocytosis 1+ H Sodium 146 H Potassium 3.4 Chloride 117 H Carbon Dioxide 21 L BUN 24 H Creatinine 1.40 H Estimated GFR 57.7 L BUN/Creatinine Ratio 17.1 Glucose 106 H Calcium 7.9 L Magnesium 2.0 Assessment & Plan Assessment & Plan narrative: - SBO --> pod#1 s/p extraction of small bowel foreign body (baby wipes x3) from distal ileum --> significantly distended proximal small bowel, no ischemia requiring resection but expect ileus --> also disimpacted rectal stool ball and noted small hard stool in sigmoid so enemas ordered for today, 1-2 until cleared --> NPO with MIVFs, increasing to resuscitative this morning given increasing HR and low volume UOP - HR increasing through AM, now to 150s; normal rhythm on telemetry, BP 130s/80s, calves soft --> most likely related to volume depletion in setting of recent history plus low UOP plus mild ROSALEE; 500cc bolus running and inc MIVFs to 100ml/hr LR --> no signs of infection, afebrile --> less likely PE, has had SCDs and is on lovenox but will monitor closely - no signs of infection, remains afebrile, WBC normal and bandemia still elevated but improving - abd binder and socks on hands currently to protect from pulling/ grabbing - keep Cummings catheter for now to monitor UOP - increasing O2 requirements through morning, was on RA now on 4 LNC: CXR after first NGT replacement fairly clear, small area of L base atelectasis versus infiltrate but unremarkable for aspiration or infectious PNA --> possibly related to hiccups - IV keppra for seizures, also has prn ativan; unable to have home PO meds due to absorption concerns in setting of SBO now ileus --> has seizures 2-3 times per week baseline Quality VTE Deep Vein Thrombosis/Pulmonary Embolism Present on Admission: No
[2019-04-27] MEDS: METOPROLOL TARTRATE 5 MG/5 ML INJ IV ×2 (11:50→23:07)
--- NOTE | 2019-04-27 12:31 | RT ---
Called to room by RN for concern due to sudden increase in oxygen demands. Patient is reported by father to have had a seizure this morning which was witnessed by staff. Currently patient is hiccupping and unresponsive which is close to baseline as he is globally developmentally delayed. Patient was on NRB to achieve sat of 92% whereas this morning he had been on room air. BBS were clear though slightly coarse in the bases. Recommended ABG which was performed. See lab results for results. Stood by to be available while RN Prisca henry MD and to await further orders.
[2019-04-27 12:33] LABS: Fractionated Inspired Oxygen 100; HCO3 ABG 22 mmol/L (22-26); Oxygen Saturation ABG 96 % (95-100); PCO2 ABG 56.5 mmHg (35-45); PO2 ABG 98 mmHg (80-100); TCO2 ABG 24 mmol/L (21-31)
[2019-04-27] MEDS: LACTATED RINGERS 1,000 ML 100 ML IV (12:36)
--- NOTE | 2019-04-27 13:38 | DI.RAD.S_ITS ---
PROCEDURE: XR CHEST 1V INDICATIONS: progressive hypoxia r/o evidence failure or pneumonia TECHNIQUE: One view of the chest was acquired. COMPARISON: [facility], CR, XR CHEST 1V, 04/27/2019, 6:44. FINDINGS: Surgical changes and devices: None. Lungs and pleura: Mild congestive changes are seen. No definite focal infiltrate. No pleural effusions or pneumothorax. Mediastinum: Mediastinal contours appear normal. Heart size is mildly enlarged. Bones and chest wall: No suspicious bony lesions. Overlying soft tissues appear unremarkable. Moderate dextroscoliosis of thoracic spine centered at T7 level is seen. IMPRESSION: Cardiomegaly and mild congestion. No focal infiltrate. Dictated by: Nathan Parada M.D. on 04/27/2019 at 14:09 Approved by: Nathan Parada M.D. on 04/27/2019 at 14:10
[2019-04-27] MEDS: MINERAL OIL 1 EACH ENEMA PR (14:10)
--- NOTE | 2019-04-27 17:52 | PM.PN.1 ---
Subjective Date Patient Seen: 04/27/19 Time Patient Seen: 17:52 Interval history: Patient has been tachycardic much of the day. We have chased him with fluid boluses with no real improvement. Blood gas shows that he is acidotic the much of this is respiratory. He does however have best base deficit of 6 and this is consistent with his CO2 on his basic Chem. Urine output has been marginal this shift despite fluid boluses. Patient is not able to give me any subjective information. Exam Vital Signs (past 8 hours): - 04/27/19 11:14 04/27/19 12:15 04/27/19 12:28 Temperature 98.7 F Pulse Rate 150 H 129 H 130 H Respiratory Rate 18 14 18 Blood Pressure 117/79 117/78 Pulse Oximetry 88 L 93 04/27/19 13:09 04/27/19 15:42 Temperature 98.4 F Pulse Rate 133 H 145 H Respiratory Rate 17 18 Blood Pressure 127/78 118/80 Pulse Oximetry 96 91 Fraction of Inspired Oxygen 100 Oxygen Delivery Method High Flow Nasal Cannula Oxygen Flow Rate 7 Narrative Exam Narrative: Lungs are clear. Good movement into the bases. Heart regular rate rapid. Objective Imaging Chest x-ray: My impression: Patient's diaphragms have become more elevated with the day. This may be an explanation for his tachycardia and hypoxia. No free air noted. Dilated loops of small bowel. Labs Result Diagrams: 04/27/19 04:55 04/27/19 04:55 Labs: Laboratory Results - last 24 hr 04/27/19 04/27/19 04/27/19 04:55 04:55 12:18 WBC 4.6 RBC 4.92 Hgb 14.0 Hct 42.7 MCV 86.9 MCH 28.5 MCHC 32.8 RDW 15.1 H Plt Count 312 Neut % (Auto) Not Reportable Lymph % (Auto) Not Reportable [place] % (Auto) Not Reportable Eos % (Auto) Not Reportable Baso % (Auto) Not Reportable Lymph # (Auto) Not Reportable [place] # (Auto) Not Reportable Baso # (Auto) Not Reportable Total Counted 100 Seg Neutrophils % 53.0 Band Neutrophils % 30.0 H Lymphocytes % (Manual) 13.0 L Monocytes % (Manual) 3.0 Eosinophils % (Manual) 1.0 L Neutrophils # (Manual) 3818 RBC Morphology See below Anisocytosis 1+ H ABG pH 7.20 L* ABG pCO2 56.5 H ABG pO2 98 ABG HCO3 22 ABG Total CO2 24 ABG O2 Saturation 96 ABG Base Excess -6.0 L FiO2 100 Sodium 146 H Potassium 3.4 Chloride 117 H Carbon Dioxide 21 L BUN 24 H Creatinine 1.40 H Estimated GFR 57.7 L BUN/Creatinine Ratio 17.1 Glucose 106 H Calcium 7.9 L Magnesium 2.0 Assessment & Plan Assessment & Plan narrative: Patient may still be dry and I have continued to order boluses. However I would like to broaden his antibiotic coverage. He is presently on cefotetan. I would like to give him better anaerobic coverage as well as brought in his gram-negative coverage so will begin Zosyn 3.375. Unfortunately metronidazole can increased seizure activity and that is already an issue. Will continue to monitor closely. Have considered pulmonary embolism as a potential source of his tachycardia and hypoxia. He certainly we would be a setup for DVT given his inactivity normally. However his creatinine is elevated and is frankly probably rising. I would be hesitant to give him IV contrast at this time. Quality VTE Deep Vein Thrombosis/Pulmonary Embolism Present on Admission: No
[2019-04-27] MEDS: LACTATED RINGERS 1,000 ML 150 ML IV (18:12)
[2019-04-27] MEDS: PIPERACILLIN-TAZO 3.375 GM/50 ML FROZ.PIGGY IV ×2 (18:13→23:32)
[2019-04-27 18:23] LABS: Lactate (Lactic Acid) 1.3 mmol/L (0.7-2.1)
[2019-04-28] VITALS (34 sets, daily range): BP systolic 92–133; BP diastolic 47–71; PULSE 98–139; RESP 12–42; TEMP 22.6–37.9; O2SAT 90–100
[2019-04-28] MEDS: LORazepam 2 MG/ML INJ 1 MG IV ×7 (01:50→22:26)
[2019-04-28] MEDS: HYDROMORPHONE 0.5 MG INJ IV ×7 (01:50→22:06)
[2019-04-28] MEDS: LACTATED RINGERS 1,000 ML 150 ML IV (03:01)
[2019-04-28] MEDS: ACETAMINOPHEN 650 MG SUPP PR ×3 (03:50→18:45)
[2019-04-28 05:29] LABS: Hematocrit 32.9 % (41-53); Hemoglobin 10.9 g/dL (13.5-17.5); Mean Corpuscular HGB Conc 33.3 % (30-36); Mean Corpuscular Hemoglobin 28.9 PG (26-34); Mean Corpuscular Volume 86.8 fL (80-100); Platelet Count 221 X10^3/uL (150-400); Red Blood Cell Count 3.78 X10^6/uL (4.5-5.9); White Blood Cell Count 7.1 X10^3/uL (4.5-11.0)
[2019-04-28 05:31] LABS: Add Manual Diff / Slide Review YES
[2019-04-28 05:33] LABS: BUN Creatinine Ratio 13.9 (6-22); Blood Urea Nitrogen 25 mg/dL (9-20); Calcium 7.7 mg/dL (8.4-10.2); Carbon Dioxide 24 mmol/L (22-32); Chloride 115 mmol/L (98-107); Estimated Glomerular Filt Rate 43.2 mL/min (>60); Glucose 86 mg/dL (70-100); HEMOLYSIS < 15 (0-50); Potassium 3.1 mmol/L (3.4-5.1); Sodium 148 mmol/L (137-145)
[2019-04-28] MEDS: PIPERACILLIN-TAZO 3.375 GM/50 ML FROZ.PIGGY IV ×4 (05:53→23:44)
[2019-04-28 05:55] LABS: Procalcitonin 3.37 ng/mL (<0.5)
--- NOTE | 2019-04-28 06:03 | DI.RAD.S_ITS ---
PROCEDURE: XR CHEST 1V INDICATIONS: increased oxygen requirements TECHNIQUE: One view of the chest was acquired. COMPARISON: [facility], CR, XR CHEST 1V, 04/27/2019, 13:46. FINDINGS: Surgical changes and devices: An NGT extends into the upper abdomen. Lungs and pleura: There is moderate patchy airspace opacity within the bilateral lung bases, as before. New moderate patchy opacity within the right apex. No pleural effusions or pneumothorax. Mediastinum: Mediastinal contours appear normal. Heart size is normal. Bones and chest wall: No suspicious bony lesions. Overlying soft tissues appear unremarkable. IMPRESSION: New right apical pneumonia. No change in bilateral basilar pneumonia. Followup PA and lateral chest films are recommended to ensure resolution, and to exclude underlying malignancy. Dictated by: Diana Youssef M.D. on 04/28/2019 at 7:22 Approved by: Diana Youssef M.D. on 04/28/2019 at 7:23
--- NOTE | 2019-04-28 06:15 | PC.NURSE ---
Addendum entered by Radha Reyes R.N. 04/28/19 06:52: Stat PXCR results phoned to Dr. Alvarez. No new orders at this time. Pt currently on 15L HFNC with Sp02 92-93%. Original Note: Pt remains tachycardic up to 140's but predominately in the 130's. Tmax 100.3 - tylenol NV per orders. Oxygen requirements continue to climb, pt initially at 7L HFNC at 2300 and now at 12L HFNC. UO 275mL this shift, NGT 400 mL output this shift. Dr. Newman updated on all of the above. Orders to decrease IVF and do a stat CXR. Pt continues to be medicated frequently with dilaudid and ativan for FLACC >5 and attempting to pull at NGT.
[2019-04-28 06:24] LABS: Neutrophils Absolute Manual 5396 /uL (3000-5900); Total Cells Counted 100
[2019-04-28 06:27] LABS: Anisocytosis 1+
[2019-04-28] MEDS: ENOXAPARIN 40 MG/0.4 ML SYRINGE SUBCUT (08:03)
[2019-04-28] MEDS: POLYETHYLENE GLYCOL 3350 17 GM POWD.PACK PO (08:04)
[2019-04-28] MEDS: NALOXONE 0.4 MG/ML VIAL 0.2 MG IV (08:21)
--- NOTE | 2019-04-28 08:30 | DI.RAD.S_ITS ---
PROCEDURE: XR CHEST 1V INDICATIONS: decreased LOC, increased RR, Lung congestion TECHNIQUE: One view of the chest was acquired. COMPARISON: [facility], CT, CT ABDOMEN PELVIS W CON, 04/26/2019, 8:46. [facility], CR, XR CHEST 1V, 04/28/2019, 6:08. FINDINGS: Surgical changes and devices: NGT is present, tip of which is in the gastric lumen. Lungs and pleura: Moderate multifocal right greater than left pulmonary opacities are present , as before. No pleural effusions or pneumothorax. Mediastinum: Mediastinal contours appear normal. Heart size is normal. Bones and chest wall: No suspicious bony lesions. Overlying soft tissues appear unremarkable. Visualized portions of the abdomen demonstrate distended small bowel loops , as before. IMPRESSION: 1. Multifocal pneumonia. 2. Small bowel obstruction. Dictated by: Diana Youssef M.D. on 04/28/2019 at 8:03 Approved by: Diana Youssef M.D. on 04/28/2019 at 8:04
[2019-04-28 08:56] LABS: Fractionated Inspired Oxygen 100; HCO3 ABG 20 mmol/L (22-26); Oxygen Saturation ABG 93 % (95-100); PCO2 ABG 36.8 mmHg (35-45); PO2 ABG 68 mmHg (80-100); TCO2 ABG 21 mmol/L (21-31); pH ABG 7.35 (7.35-7.45)
--- NOTE | 2019-04-28 09:14 | PC.NURSE ---
Addendum entered by Tabitha Mackey R.N. 04/28/19 14:40: [id number]: UOP=>195cc. OG output=>500cc (some bloody tinged output post intubation) Addendum entered by Tabitha Mackey R.N. 04/28/19 14:18: 1000-Urometer for hourly output in place. 1130-Repeat ABG post [place] NC initiation. 1200-MD at bedside; plan for intubation as patient not compensating and hypoxemia and increased WOB w/concern for Respiratory failure; Anesthesia MD paged. 1213-Dr. Galindo and Dr. Humphreys at bedside for intubation, RT Venus and this RN present. sedation administered and managed by Dr. Galindo; slight drop in BP w/intubation @1215, 250cc LR bolus infusing now. CXR post intubation done. ETT 7.5 @ 21cm @ the teeth; NG intact @ 53 to L nare intact and to LIS. UOP remains 25-30cc/hr merced and concentrated. Original Note: 0700-Bedside assessment eyes open and moaning noted w/stimulation PRN pain medicine administered. 0800-patient increasing reaching for lines and has been receiving PRN ativan for agitation; 1mg Ativan administered. 0845-while doing patient care, noted patient minimally responsive to touch, sternal rub patient opened eyes which where deviated upwards and to the right-mom expressed concer for possible seizure activity. Significant abd muscle use w/shallow respirations; RT notified for assessment, PRN Narcan administered, patient remains minimally responsive. MD notified via phone for concern of respiratory status and prior ABg w/pH of 7.2, also patient's increase O2 needs now on 15L NC; order for stat ABG and CXR.
--- NOTE | 2019-04-28 10:38 | P.PN_ITS ---
Subjective Date Patient Seen: 04/28/19 Time Patient Seen: 09:30 Interval history: Pt seen multiple times through morning and early afternoon. Appeared to have worsened from a pulmonary standpoint overnight and this AM was on 15 LNC and moderately tachypneic with increased work of breathing. He also now has coarse lung sounds. CXR shows new infiltrates concerning for PNA, most likely aspiration. UOP had improved yesterday and has decreased somewhat again. Labs show normal white count with an improving bandemia, unchanged minimal hypernatremia and hypokalemia, with a Cr increase to 1.8. He remains in sinus tachycardia with normal BP and has been afebrile with T max to 100.3; he has been given acetaminophen. ABG shows improvement from his acidosis yesterday but P02 was quite low. He was placed on a high flow heated positive pressure system and ABG repeated with again improved acid/base parameters but P02 only minimally improved. Given this, patient was intubated with the assistance of anesthesia; discussed with guardian via phone at time of decision. With recheck after the initial hour, his heart rate has improved and his oxygenation is more than adequate and is being weaned down. He is currently on ARDS protocol with vent settings given concern for this and his small lung volumes; he is responding well. He is on propofol sedation and maintaining blood pressure well. UOP remains on the low side but hesitant to volume overload at this juncture. Exam Vital Signs (past 8 hours): - 04/28/19 03:00 04/28/19 03:43 04/28/19 03:50 Temperature 99.1 F 100.1 F H 100.1 F H Pulse Rate 130 H Respiratory Rate 20 Blood Pressure 128/68 Pulse Oximetry 94 04/28/19 03:57 04/28/19 04:00 04/28/19 04:38 Temperature Pulse Rate 133 H 133 H 126 H Respiratory Rate 22 20 20 Blood Pressure 109/61 109/61 Pulse Oximetry 93 93 94 04/28/19 04:52 04/28/19 04:54 04/28/19 06:00 Temperature 99.0 F 99.0 F Pulse Rate 125 H 132 H Respiratory Rate 18 20 Blood Pressure 109/61 129/65 Pulse Oximetry 95 92 04/28/19 06:25 04/28/19 07:45 04/28/19 08:55 Temperature 98 F 98.4 F Pulse Rate 132 H 123 H Respiratory Rate 20 22 Blood Pressure 116/53 L Pulse Oximetry 92 95 Fraction of Inspired Oxygen 100 Oxygen Delivery Method Nasal Cannula Oxygen Flow Rate 15 Narrative Exam Narrative: currently sedated and intubated, nonverbal baseline, thin young male dry MM, no scleral icterus intubated, symmetric chest rise, coarse lung sounds bilaterally soft, minimal distension; inc c/d/i contracted limbs; no calf edema; LUE and hand edema from infiltrated IV with no erythema visible skin dry and intact Objective Labs Result Diagrams: 04/28/19 04:58 04/28/19 04:58 Labs: Laboratory Results - last 24 hr 04/27/19 04/27/19 04/28/19 12:18 18:05 04:58 WBC RBC Hgb Hct MCV MCH MCHC RDW Plt Count Neut % (Auto) Lymph % (Auto) [place] % (Auto) Eos % (Auto) Baso % (Auto) Lymph # (Auto) [place] # (Auto) Baso # (Auto) Total Counted Seg Neutrophils % Band Neutrophils % Lymphocytes % (Manual) Monocytes % (Manual) Eosinophils % (Manual) Neutrophils # (Manual) RBC Morphology Anisocytosis ABG pH 7.20 L* ABG pCO2 56.5 H ABG pO2 98 ABG HCO3 22 ABG Total CO2 24 ABG O2 Saturation 96 ABG Base Excess -6.0 L FiO2 100 Sodium Potassium Chloride Carbon Dioxide BUN Creatinine Estimated GFR BUN/Creatinine Ratio Glucose Lactate 1.3 Calcium Magnesium Procalcitonin 3.37 H 04/28/19 04/28/19 04/28/19 04:58 04:58 08:29 WBC 7.1 D RBC 3.78 L Hgb 10.9 L Hct 32.9 L MCV 86.8 MCH 28.9 MCHC 33.3 RDW 15.0 H Plt Count 221 Neut % (Auto) Not Reportable Lymph % (Auto) Not Reportable [place] % (Auto) Not Reportable Eos % (Auto) Not Reportable Baso % (Auto) Not Reportable Lymph # (Auto) Not Reportable [place] # (Auto) Not Reportable Baso # (Auto) Not Reportable Total Counted 100 Seg Neutrophils % 57.0 Band Neutrophils % 19.0 H Lymphocytes % (Manual) 15.0 L Monocytes % (Manual) 6.0 Eosinophils % (Manual) 3.0 Neutrophils # (Manual) 5396 RBC Morphology See below Anisocytosis 1+ H ABG pH 7.35 ABG pCO2 36.8 ABG pO2 68 L ABG HCO3 20 L ABG Total CO2 21 ABG O2 Saturation 93 L ABG Base Excess -5.0 L FiO2 100 Sodium 148 H Potassium 3.1 L Chloride 115 H Carbon Dioxide 24 BUN 25 H Creatinine 1.80 H Estimated GFR 43.2 L BUN/Creatinine Ratio 13.9 Glucose 86 Lactate Calcium 7.7 L Magnesium 2.0 Procalcitonin Assessment & Plan Assessment & Plan narrative: SBO - pod#2 s/p extraction of small bowel foreign body (baby wipes x3) from distal ileum - significantly distended proximal small bowel, no ischemia requiring resection but expect ileus - also disimpacted rectal stool ball and noted small hard stool in sigmoid so enemas ordered, 1-2 per day until cleared - NPO with MIVFs LR 100ml/hr; will switch to D5 when able - mild hypokalemia and hypernatremia, on LR, will monitor and replete K+ as needed Sinus Tachycardia -130s since yesterday but improved after intubation to 80-90s - calves soft, some concern for PE but most likely due to PNA and pulm distress as well as third spacing/ volume depletion; ROSALEE so no contrast exam as suspicions low, no V/Q available PNA - likely aspiration, has had opportunity with high grade bowel obstruction and multiple NGT removals and replacements as well as intubation for surgery although no gross event noted at these times - remains afebrile but has been getting acetaminophen, WBC normal and bandemia still improving; switched to piperacillin-tazobactam last evening - abd binder and socks on hands currently to protect from pulling/ grabbing Low Urine Output - suspect baseline volume depletion from prolonged NPO plus losses, third spacing, and new infection but has had ROSALEE since admission - MIVFs at 100, gentle 250cc bolus recently given but need to avoid overload given pulm issues; with his improvement on all other fronts since intubation I am hopeful this will level out soon or at least given us option to increase IVFs and/or add colloid - keep Cummings catheter for now to monitor UOP Seizure history - IV keppra, also has prn ativan; unable to have home PO meds due to absorption concerns in setting of SBO now ileus - has seizures 2-3 times per week baseline PPI started today, small volume blood noted in NGT so possible stress gastritis with today's events Glucose 79 today, prn dextrose elevate RUE due to IV infiltration SCDs, lovenox Quality VTE Deep Vein Thrombosis/Pulmonary Embolism Present on Admission: No
--- NOTE | 2019-04-28 10:40 | RT ---
Placed patient on BIPAP per MD Berryr. Explained to ALBERT Lu the protocol involving patients who cannot remove their own mask and risk of aspiration. ALBERT Lu said he was her only patient and she would be one to one. After initiating BIPAP, this RT noticed that the patient's stomach was rising with each breath on minimal setting whereas it did not previously on HFNC. Informed ALBERT Lu that I felt air was going into the patient's stomach. This RT called MD Humphreys and expressed concern of this and suggested that since the patient's ABG shows an oxygenation issue in absence of a ventilation issue that perhaps we should consider HHFNC which would should provide adequate oxygenation and slight PEEP without the risk of vomiting and subsequent aspiration. MD Humphreys agreed. Asked if she wanted an ABG in an hour and she was also in agreement.
--- NOTE | 2019-04-28 10:42 | CM.DPC ---
Addendum entered by Milagro Brunson LPN 04/28/19 14:31: Pt is now on ventilator support and ARDS protocol. Will check in tomorrow and follow. Dr. Dc confirms she has not been consulted but is available to do so if the surgical team request this. Original Note: DCP: continued: Case received, EMR reviewed. Discussed in Team Rounds. RN coordinator Dolores and RT Danny both note that pt's condition appears to be deteriorating and with RT noting likely need for transfer to higher level of care as chemically induced ARDS is being considered. Bowel obstruction bezoar of cleaning wipes was noted and RT states there may have been some aspiration of this material into lungs. Dolores and Danny are planning to follow up with rounding surgeon Dr. Humphreys today and also see if a hospitalist consult should be considered. It is unclear if any Advanced Directives are in place. Notes indicate that DPOA grandfather is on his way. Will plan to check in today with pt's family and follow in whatever way may be helpful.
--- NOTE | 2019-04-28 11:33 | RT ---
Arrived at room for ABG. Patient appears to have grunting respirations which have risen from 22 to 34 and subcostal restractiohns. Also of note is patients BBS which have become more coarse.
[2019-04-28] MEDS: LACTATED RINGERS 1,000 ML 100 ML IV ×2 (12:03→20:33)
--- NOTE | 2019-04-28 12:22 | DI.RAD.S_ITS ---
PROCEDURE: XR CHEST 1V INDICATIONS: intubated TECHNIQUE: One view of the chest was acquired. COMPARISON: [facility], CR, XR CHEST 1V, 04/28/2019, 8:37. FINDINGS: Surgical changes and devices: ETT is present, tip of which is roughly 54 mm above the aurelio. An NGT extends into the gastric lumen. Lungs and pleura: Multifocal patchy bilateral basilar and right apical airspace opacities. No pleural effusions or pneumothorax. Mediastinum: Mediastinal contours appear normal. Heart size is normal. Bones and chest wall: No suspicious bony lesions. Overlying soft tissues appear unremarkable. IMPRESSION: Multifocal pneumonia. Dictated by: Diana Youssef M.D. on 04/28/2019 at 11:49 Approved by: Diana Youssef M.D. on 04/28/2019 at 11:50
[2019-04-28 13:03] LABS: pH ABG 7.33 (7.35-7.45)
[2019-04-28 13:04] LABS: Fractionated Inspired Oxygen 95; HCO3 ABG 20 mmol/L (22-26); Oxygen Saturation ABG 93 % (95-100); PCO2 ABG 38.8 mmHg (35-45); PO2 ABG 71 mmHg (80-100); TCO2 ABG 22 mmol/L (21-31)
[2019-04-28] MEDS: levETIRAcetam 1,000 MG in SODIUM CHLORIDE 0.9% 100 ML 440 ML IV (13:07)
--- NOTE | 2019-04-28 13:07 | P.PCN_ITS ---
Procedures Date/Time Date of procedure: 04/28/19 Time of procedure: 12:15 Intubation Time out performed: No Sedative: other (Propofol) Mg given: 150 Paralytic: succinylcholine Mg given: 100 Laryngoscope: fiber optic video scope ET tube size: 7.5 ET tube uncuffed: Yes Tube secured depth (cm): 21 Tube secured location: teeth Tube placement confirmation: visualized tube passing through cords and confirmation by capnometry Patient tolerated procedure: well Intubation complications: none Additional comments: Pt in acute respiratory distress. General surgeon at the bedside. Reviewed patients record and recent labs. Free flowing IV established. Suction ready. Easy to view larynx wit Glidescope and 7.5 ETT passed easily thru cords. I suctioned oropharynx before intubating. It looks like he may have been aspirating mucous prior to intubation? Post intubation. 200 mcg Neosynephrine given to stablize BP. Vitals back around 95/45 , HR 122, O2 sats back between 95-100%. Initial vent settings given to RT per ARDS protocol. Transfer of care back to ICU team and General surgeon at 12:25. Pt's VSS. [facility]
[2019-04-28] MEDS: PROPOFOL 1,000 MG/100 ML VIAL 1.659 MG IV (13:41)
[2019-04-28 14:37] LABS: HCO3 ABG 20 mmol/L (22-26); Oxygen Saturation ABG 99 % (95-100); PCO2 ABG 38.2 mmHg (35-45); PO2 ABG 147 mmHg (80-100); TCO2 ABG 21 mmol/L (21-31); pH ABG 7.33 (7.35-7.45)
[2019-04-28 14:45] LABS: Fractionated Inspired Oxygen 95
[2019-04-28] MEDS: PANTOPRAZOLE 40 MG VIAL 20 MG IV (16:34)
[2019-04-28 17:59] LABS: HCO3 ABG 19 mmol/L (22-26); PCO2 ABG 33.3 mmHg (35-45); PO2 ABG 123 mmHg (80-100); pH ABG 7.37 (7.35-7.45)
[2019-04-28 18:00] LABS: Fractionated Inspired Oxygen 70; Oxygen Saturation ABG 99 % (95-100); TCO2 ABG 20 mmol/L (21-31)
[2019-04-28] MEDS: LACTATED RINGERS 500 ML 1000 ML IV (22:01)
[2019-04-29] VITALS (44 sets, daily range): BP systolic 103–144; BP diastolic 59–89; PULSE 63–107; RESP 15–26; TEMP 36.8–38.4; O2SAT 95–100
[2019-04-29] MEDS: ACETAMINOPHEN 650 MG SUPP PR ×4 (00:18→23:45)
[2019-04-29] MEDS: levETIRAcetam 1,000 MG in SODIUM CHLORIDE 0.9% 100 ML 440 ML IV ×2 (00:19→11:59)
[2019-04-29] MEDS: HYDROMORPHONE 0.5 MG INJ IV ×7 (00:42→20:46)
[2019-04-29 00:47] LABS: HCO3 ABG 20 mmol/L (22-26); Oxygen Saturation ABG 97 % (95-100); PCO2 ABG 28.1 mmHg (35-45); PO2 ABG 83 mmHg (80-100); TCO2 ABG 20 mmol/L (21-31); pH ABG 7.45 (7.35-7.45)
[2019-04-29 00:48] LABS: Fractionated Inspired Oxygen 60
[2019-04-29 05:02] LABS: Add Manual Diff / Slide Review NO; Basophils Absolute Auto 0 /uL (0-100); Basophils Percent Auto 0.4 % (0-2); Eosinophils Absolute Auto 200 /uL (0-450); Hematocrit 28.7 % (41-53); Hemoglobin 9.7 g/dL (13.5-17.5); Lymphocytes Absolute Auto 800 /uL (1100-4500); Lymphocytes Percent Auto 9.3 % (25-40); Mean Corpuscular HGB Conc 33.7 % (30-36); Mean Corpuscular Hemoglobin 29.1 PG (26-34); Mean Corpuscular Volume 86.4 fL (80-100); Monocytes Absolute Auto 300 /uL (0-900); Neutrophils Absolute Auto 6800 /uL (1500-7000); Neutrophils Percent Auto 83.3 % (50-75); Platelet Count 168 X10^3/uL (150-400); Red Blood Cell Count 3.32 X10^6/uL (4.5-5.9); Red Cell Distribution Width 15.2 % (11.6-14.8); White Blood Cell Count 8.1 X10^3/uL (4.5-11.0)
[2019-04-29 05:06] LABS: BUN Creatinine Ratio 14.6 (6-22); Blood Urea Nitrogen 19 mg/dL (9-20); Calcium 7.8 mg/dL (8.4-10.2); Carbon Dioxide 27 mmol/L (22-32); Chloride 114 mmol/L (98-107); Estimated Glomerular Filt Rate > 60.0 mL/min (>60); Glucose 97 mg/dL (70-100); HEMOLYSIS < 15 (0-50); Magnesium 2.1 mg/dL (1.6-2.3); Sodium 146 mmol/L (137-145)
[2019-04-29] MEDS: PIPERACILLIN-TAZO 3.375 GM/50 ML FROZ.PIGGY IV ×4 (05:46→23:43)
[2019-04-29] MEDS: LACTATED RINGERS 250 ML 1000 ML IV (06:30)
[2019-04-29] MEDS: PROPOFOL 1,000 MG/100 ML VIAL 1.659 MG IV (06:49)
[2019-04-29] MEDS: POTASSIUM CHLORIDE 20 MEQ in SODIUM CHLORIDE 0.9% 250 ML 130 ML IV (07:37)
[2019-04-29 07:41] LABS: Alanine Aminotransferase 23 IU/L (21-72); Albumin 2.4 g/dL (3.5-5.0); Alkaline Phosphatase 49 U/L (38-126); Aspartate Aminotransferase 18 IU/L (17-59); Bilirubin Total 0.3 mg/dL (0.2-1.3); Globulin 2.4 g/dL (1.7-4.1); Total Protein 4.8 g/dL (6.3-8.2)
--- NOTE | 2019-04-29 08:19 | RT ---
MD Humphreys requesting weaning trial. Patient does not meet criteria in regards to PEEP and FIO2 but hoping to continue making progress on weaning both of these so that SBT can take place.
[2019-04-29] MEDS: ENOXAPARIN 40 MG/0.4 ML SYRINGE SUBCUT (08:31)
[2019-04-29] MEDS: PANTOPRAZOLE 40 MG VIAL 20 MG IV (08:32)
[2019-04-29] MEDS: ALBUMIN HUMAN 25 GM/100 ML VIAL IV ×2 (09:22→16:59)
[2019-04-29] MEDS: FUROSEMIDE 100 MG in SODIUM CHLORIDE 0.9% 100 ML IV (09:23)
--- NOTE | 2019-04-29 11:26 | DI.RAD.S_ITS ---
PROCEDURE: XR CHEST 1V INDICATIONS: picc placement verification TECHNIQUE: One view of the chest was acquired. COMPARISON: [facility], CR, XR CHEST 1V, 04/29/2019, 5:46. FINDINGS: Surgical changes and devices: Right arm PICC is present, tip of which is in the mid SVC. NGT and ETT are in expected location. Lungs and pleura: Left greater than right bibasilar and right apical airspace opacities are unchanged. No pleural effusions or pneumothorax. Mediastinum: Mediastinal contours appear normal. Heart size is normal. Bones and chest wall: No suspicious bony lesions. Overlying soft tissues appear unremarkable. IMPRESSION: No change in bilateral pneumonia. Followup PA and lateral chest films are recommended to ensure resolution, and to exclude underlying malignancy. Dictated by: Diana Youssef M.D. on 04/29/2019 at 10:52 Approved by: Diana Youssef M.D. on 04/29/2019 at 10:53
[2019-04-29] MEDS: LACTATED RINGERS 1,000 ML 100 ML IV (12:24)
--- NOTE | 2019-04-29 13:49 | CM.DPC ---
DCP: continued. Case discussed in Team Rounds again today and with plan to do a wean trial from ventilator support is possible. Thus far pt has not been stable enough for the trial. RT is working closely with ICU staff and Dr. Humphreys. Went to room to check in with family if possible and discuss POC with ALBERT Jarvis. She confirms that mom Dottie Acharya was at bedside earlier, has gone out for awhile. Asked about reports of a POA Grandfather but she reports she has heard nothing from staff about this person and confirms that no POA or AD paperwork is present in the chart. She notes Dottie and pt's stepfather Oswald have been signing the consents for treatment. Per ALBERT Jarvis, pt seems to be improving today and transfer to a higher level of pulmonology care is now not being considered. Dr. Humphreys is following pt today and discussed POC with ICU team but her progress note is not yet available for review. Called contact number for Dottie: [phone] with intent to check in and offer prn support and set up a time to meet. Her is not set up to receive messages. Found contact number for pt's grandfather: Willis Brandt: [phone]: lists his address [address] in [place]. Info on EMR demographics page does not identify him as POA. Called this number but it is disconnected. ICU staff agree to alert this d/c senior program planner if Dottie comes back during today's CM office hours. P: DCP will continue to follow as POC unfolds.
--- NOTE | 2019-04-29 14:37 | PC.NURSE ---
Day Shift Note Pt sedated on propofol and vented on AM assessment. Opens eyes intermittently to voice, tracking for short periods of time. Ventilator settings being managed by RT per ARDS protocol, inappropriate for weaning trial at this time. Oxygen sats 99-100% with FiO2 50%. Coarse lung sounds bilaterally with rhonchi. Moderate amounts of thick white secretions being suctioned via ET tube. Dilaudid being given prn for pain control, FLACC 3-4. Generalized edema 2+ pitting. Cummings in place and draining clear yellow urine, Lasix gtt initiated and scheduled albumin given per MD order. Urine output increased throughout shift - see trends. PICC line placed at 1130. NSR with rate in the 80s, occ up to the 90s and low 100s when fever present. Soft wrist restraints in place bilaterally. Aquacel dressing to abdomen D/I with small amount shadow drainage. Abdominal binder in place. NG tube to LIS. BTs hypoactive. Pt had long period of hiccups this shift causing ventilator disruption/overbreathing. Attempted to increase sedation with no effect, Dr. Humphreys updated and will review this afternoon. Hiccups ended spontaneously. Dr. Humphreys also updated on urine output.
--- NOTE | 2019-04-29 14:42 | DI.RAD.S_ITS ---
PROCEDURE: XR CHEST 1V INDICATIONS: intubation for PNA TECHNIQUE: One view of the chest was acquired. COMPARISON: [facility], CR, XR CHEST 1V, 04/28/2019, 12:25. FINDINGS: Surgical changes and devices: Tubes and catheters are in stable in expected positions. Lungs and pleura: There is decreased airspace opacification within the bilateral lung bases and right apex.. No pleural effusions or pneumothorax. Mediastinum: Mediastinal contours appear normal. Heart size is normal. Bones and chest wall: No suspicious bony lesions. Overlying soft tissues appear unremarkable. IMPRESSION: Slight decrease in bilateral multifocal pneumonia. Dictated by: Diana Youssef M.D. on 04/29/2019 at 7:34 Approved by: Diana Youssef M.D. on 04/29/2019 at 7:34
--- NOTE | 2019-04-29 15:07 | PM.PN.1 ---
Subjective Date Patient Seen: 04/29/19 Time Patient Seen: 07:30 Interval history: Minimal increase in Fi02 from 50 to 60 L/min through night, ABG and CXR somewhat improved. Sputum sample sent this AM. UOP dropped off last evening and responded to a 500ml bolus but has dropped off again this AM. Creatinine improved from yesterday per labs. Abd remains soft and with minimal distension. Mom and Step-father present in later morning on recheck of patient, discussed current state and generally anticipated course over coming days. Exam Vital Signs (past 8 hours): - 04/29/19 08:00 04/29/19 08:32 04/29/19 09:00 Temperature 100.1 F H 100.1 F H Pulse Rate 95 H 85 Respiratory Rate 18 18 Blood Pressure 132/81 120/82 Pulse Oximetry 100 100 04/29/19 09:48 04/29/19 10:00 04/29/19 10:32 Temperature 98.9 F 98.2 F Pulse Rate 81 69 Respiratory Rate 18 18 Blood Pressure 108/70 121/79 Pulse Oximetry 99 98 04/29/19 11:00 04/29/19 11:37 04/29/19 12:00 Temperature 98.2 F Pulse Rate 63 75 76 Respiratory Rate 18 22 25 H Blood Pressure 129/66 137/89 141/81 H Pulse Oximetry 100 100 100 04/29/19 13:00 04/29/19 14:00 Temperature 100.2 F H 99.4 F Pulse Rate 91 H 87 Respiratory Rate 20 23 Blood Pressure 142/87 H 144/82 H Pulse Oximetry 99 98 Fraction of Inspired Oxygen 0.5 Oxygen Delivery Method Mechanical Ventilation Oxygen Flow Rate 55 Narrative Exam Narrative: currently sedated and intubated, nonverbal baseline, thin young male dry MM, no scleral icterus; NGT in place, no current blood in tubing intubated, symmetric chest rise, coarse lung sounds bilaterally soft, minimal distension; inc c/d/i contracted limbs; BL calves soft and equal, SCDs in place; mild pitting edema to lower calves and feet; LUE and hand edema from infiltrated IV with no erythema visible skin dry and intact Objective Labs Result Diagrams: 04/29/19 04:37 04/29/19 04:37 Labs: Laboratory Results - last 24 hr 04/28/19 04/29/19 04/29/19 17:48 00:30 04:37 WBC 8.1 RBC 3.32 L Hgb 9.7 L Hct 28.7 L MCV 86.4 MCH 29.1 MCHC 33.7 RDW 15.2 H Plt Count 168 Neut % (Auto) 83.3 H Lymph % (Auto) 9.3 L [place] % (Auto) 4.0 Eos % (Auto) 3.0 Baso % (Auto) 0.4 Neut # (Auto) 6800 Lymph # (Auto) 800 L [place] # (Auto) 300 Eos # (Auto) 200 Baso # (Auto) 0 ABG pH 7.37 7.45 ABG pCO2 33.3 L 28.1 L ABG pO2 123 H 83 ABG HCO3 19 L 20 L ABG Total CO2 20 L 20 L ABG O2 Saturation 99 97 ABG Base Excess -6.0 L -5.0 L FiO2 70 60 Sodium Potassium Chloride Carbon Dioxide BUN Creatinine Estimated GFR BUN/Creatinine Ratio Glucose Calcium Magnesium Total Bilirubin AST ALT Alkaline Phosphatase Total Protein Albumin Globulin Albumin/Globulin Ratio 04/29/19 04:37 WBC RBC Hgb Hct MCV MCH MCHC RDW Plt Count Neut % (Auto) Lymph % (Auto) [place] % (Auto) Eos % (Auto) Baso % (Auto) Neut # (Auto) Lymph # (Auto) [place] # (Auto) Eos # (Auto) Baso # (Auto) ABG pH ABG pCO2 ABG pO2 ABG HCO3 ABG Total CO2 ABG O2 Saturation ABG Base Excess FiO2 Sodium 146 H Potassium 3.0 L Chloride 114 H Carbon Dioxide 27 BUN 19 Creatinine 1.30 H Estimated GFR > 60.0 BUN/Creatinine Ratio 14.6 Glucose 97 Calcium 7.8 L Magnesium 2.1 Total Bilirubin 0.3 AST 18 ALT 23 Alkaline Phosphatase 49 Total Protein 4.8 L Albumin 2.4 L Globulin 2.4 Albumin/Globulin Ratio 1.0 Assessment & Plan Assessment & Plan narrative: SBO - pod#3 s/p extraction of small bowel foreign body (baby wipes x3) from distal ileum - significantly distended proximal small bowel, no ischemia requiring resection but expect ileus - also disimpacted rectal stool ball and noted small hard stool in sigmoid so enemas ordered, 1-2 per day first post op day with no significant results; hold for now given pulm issues - NPO with MIVFs LR 100ml/hr, adding dextrose 5% today --> on day 5 NPO, placing PICC for general access but also in case of need for TPN - mild hypokalemia and hypernatremia, on LR; monitor and replete K+ as needed Sinus Tachycardia -much improved after intubation and improved control of respiratory issues - 80-90s SR and maintaining BP well PNA - likely aspiration, has had opportunity with high grade bowel obstruction and multiple NGT removals and replacements as well as intubation for surgery although no gross event noted at these times - doing well on ARDS vent protocol, maintaining between 50-60 L/min Fi02, ABG continues to improve; CXR with improvement in infiltrates today --> sputum sample and blood cultures pending - remains afebrile (low 100s max) but has been getting acetaminophen, WBC normal and bandemia still improving; switched to piperacillin-tazobactam 2 days ago - abd binder and soft restraints to prevent further grabbing - doing well on propofol sedation, will start interval vacations from this today Low Urine Output - suspect baseline volume depletion from prolonged NPO plus losses, third spacing, and new infection but has had ROSALEE since admission --> Cr improved today - MIVFs at 100, gentle 250cc bolus recently given but need to avoid overload given pulm issues --> Albumin 25% q8 hr and furosemide started today with improved UOP so far - keep Cummings catheter for now to monitor UOP Seizure history - IV keppra, also has prn ativan; unable to have home PO meds due to absorption concerns in setting of SBO now ileus - has seizures 2-3 times per week baseline PPI; had small volume blood noted in NGT yesterday Glucose 97 this AM; prn dextrose elevate RUE due to IV infiltration SCDs, lovenox Quality VTE Deep Vein Thrombosis/Pulmonary Embolism Present on Admission: No
[2019-04-29 16:38] LABS: BUN Creatinine Ratio 13.6 (6-22); Blood Urea Nitrogen 15 mg/dL (9-20); Calcium 7.9 mg/dL (8.4-10.2); Carbon Dioxide 26 mmol/L (22-32); Chloride 110 mmol/L (98-107); Estimated Glomerular Filt Rate > 60.0 mL/min (>60); Glucose 125 mg/dL (70-100); HEMOLYSIS < 15 (0-50); Sodium 144 mmol/L (137-145)
[2019-04-29 16:49] LABS: Potassium 2.5 mmol/L (3.4-5.1)
[2019-04-29] MEDS: POTASSIUM CHLORIDE 40 MEQ in SODIUM CHLORIDE 0.9% 500 ML 130 ML IV (16:58)
[2019-04-29] MEDS: LORazepam 2 MG/ML INJ 1 MG IV ×2 (16:59→21:13)
--- NOTE | 2019-04-29 17:15 | PC.NURSE ---
1700- MD notified of critical potassium result of 2.5. Berry ordered and hung per order.
[2019-04-29 18:09] LABS: PCO2 ABG 32.4 mmHg (35-45); PO2 ABG 126 mmHg (80-100); pH ABG 7.47 (7.35-7.45)
[2019-04-29 18:10] LABS: Fractionated Inspired Oxygen 50; HCO3 ABG 24 mmol/L (22-26); Oxygen Saturation ABG 99 % (95-100); TCO2 ABG 25 mmol/L (21-31)
[2019-04-29] MEDS: PROPOFOL 1,000 MG/100 ML VIAL 8.295 MG IV (19:45)
[2019-04-29] MEDS: DEXTROSE 5%-LACTATED RINGERS 1,000 ML 100 ML IV (20:46)
[2019-04-29] MEDS: FUROSEMIDE 20 MG/2 ML VIAL IV (23:49)
[2019-04-30] VITALS (36 sets, daily range): BP systolic 117–159; BP diastolic 67–95; PULSE 58–120; RESP 14–38; TEMP 36.6–38.7; O2SAT 93–100
[2019-04-30] MEDS: levETIRAcetam 1,000 MG in SODIUM CHLORIDE 0.9% 100 ML 440 ML IV ×2 (00:18→12:10)
[2019-04-30] MEDS: ALBUMIN HUMAN 25 GM/100 ML VIAL IV (01:04)
[2019-04-30 05:19] LABS: Add Manual Diff / Slide Review NO; Basophils Absolute Auto 0 /uL (0-100); Basophils Percent Auto 0.4 % (0-2); Eosinophils Absolute Auto 200 /uL (0-450); Eosinophils Percent Auto 2.2 % (2-4); Hematocrit 27.8 % (41-53); Hemoglobin 9.6 g/dL (13.5-17.5); Lymphocytes Absolute Auto 700 /uL (1100-4500); Lymphocytes Percent Auto 7.6 % (25-40); Mean Corpuscular HGB Conc 34.3 % (30-36); Mean Corpuscular Hemoglobin 29.1 PG (26-34); Mean Corpuscular Volume 84.8 fL (80-100); Monocytes Absolute Auto 300 /uL (0-900); Monocytes Percent Auto 3.9 % (3-14); Neutrophils Absolute Auto 7500 /uL (1500-7000); Neutrophils Percent Auto 85.9 % (50-75); Red Blood Cell Count 3.28 X10^6/uL (4.5-5.9); Red Cell Distribution Width 15.4 % (11.6-14.8); White Blood Cell Count 8.7 X10^3/uL (4.5-11.0)
[2019-04-30 05:25] LABS: BUN Creatinine Ratio 10.9 (6-22); Blood Urea Nitrogen 12 mg/dL (9-20); Calcium 8.7 mg/dL (8.4-10.2); Carbon Dioxide 33 mmol/L (22-32); Chloride 106 mmol/L (98-107); Estimated Glomerular Filt Rate > 60.0 mL/min (>60); Glucose 143 mg/dL (70-100); HEMOLYSIS < 15 (0-50); Magnesium 1.7 mg/dL (1.6-2.3); Potassium 2.8 mmol/L (3.4-5.1); Sodium 145 mmol/L (137-145)
[2019-04-30] MEDS: PIPERACILLIN-TAZO 3.375 GM/50 ML FROZ.PIGGY IV ×4 (06:17→23:47)
[2019-04-30] MEDS: ACETAMINOPHEN 650 MG SUPP PR (06:23)
[2019-04-30] MEDS: POTASSIUM CHLORIDE 40 MEQ in SODIUM CHLORIDE 0.9% 500 ML 130 ML IV (06:40)
[2019-04-30] MEDS: INSULIN ASPART 100 UNIT/ML INSULN PEN SUBCUT ×2 (06:41→13:38)
--- NOTE | 2019-04-30 07:05 | PC.NURSE ---
Dr. Humphreys called at 0545 to notify of potassium of 2.8, temp at this time of 101.5, and elevated glucose with orders recieved. Has has to liquid stools with no particulate matter of geen/brown.
[2019-04-30] MEDS: PANTOPRAZOLE 40 MG VIAL 20 MG IV (08:48)
[2019-04-30] MEDS: ENOXAPARIN 40 MG/0.4 ML SYRINGE SUBCUT (08:48)
[2019-04-30] MEDS: MAGNESIUM SULFATE 4 GM/100 ML PIGGYBACK IV (09:23)
[2019-04-30] MEDS: POTASSIUM CHLORIDE 20 MEQ/15 ML UDC 60 MEQ PO (09:23)
[2019-04-30] MEDS: DEXTROSE 5%-LACTATED RINGERS 1,000 ML 50 ML IV (09:28)
[2019-04-30] MEDS: POLYETHYLENE GLYCOL 3350 17 GM POWD.PACK PO (09:29)
[2019-04-30 09:53] LABS: PCO2 ABG 29.8 mmHg (35-45); PO2 ABG 100 mmHg (80-100); pH ABG 7.49 (7.35-7.45)
[2019-04-30 09:54] LABS: Fractionated Inspired Oxygen 30; HCO3 ABG 23 mmol/L (22-26); Oxygen Saturation ABG 98 % (95-100); TCO2 ABG 24 mmol/L (21-31)
--- NOTE | 2019-04-30 10:22 | PC.NURSE ---
Addendum entered by Della Carmona R.N. 04/30/19 15:09: 1505-Witnessed seizure activity lasting >10 min 1mg IV ativan HR 140's. NG tube still patent. Suctioning for oral secretions. Vocalizing and post ictal, labored breathing 30's. Provider notified. Addendum entered by Della Carmona R.N. 04/30/19 14:42: SBT tolerated well, Dr Dennis at bedside for 1320 extubation. Pt tolerated fair, increased oral secretions, Enc cough, Pt has trouble with verbal cues at baseline, Dilaudid given for pain, RR 30's 92-98% Spo2 on 7L hi flow NC. NG tube remains patent, LIS. Large soft BM, BT improved since start of shift. Repositioning for comfort. Pt has remained afebrile and no APAP given this shift. Soft wrist restraints remain in place for NG tube patency. Original Note: Am shift Pt is sedated and on vent at start of shift. Maintaining propofol gtt, Lungs are coarse with Rhonchi t/o, exp wheeze noted L>R. RT maintaining Vent settings, Fio2 30%, Spo2 98-100%. PICC RUE with K rider infusing.Aquacell dressing with shadow drainage, ABD binder in place. Oral care provided, soft wrist restraints in place. NG to LIS, canela patent, good urine output. Dr Rodriguez into see Pt, and will order ABG's and SBT for today. Rt into manage. PO K given per NG, clamped. Aquacell removed, incision is without erythema, rafael intact and edges are well approximated. ABD binder replaced. Repositioned for comfort.
--- NOTE | 2019-04-30 10:33 | CM.DPC ---
Addendum entered by Milagro Brunson LPN 05/03/19 08:41: Have left a vm for pt's ALINA Marrero: [phone]. She will return to her office today. Will fax updated clinical notes for her FYI. (fax: [phone].) Addendum entered by Allison Lizama R.N. 04/30/19 16:11: Did speak to PERLA Romero at [facility]. Stated and confirmed that Willis is guardian who oversees patient, but mother is primary continuum of care manager. She also stated to call her if any questions, such as if patient needs home health, for they can provide a provider name for patient, since he is [facility]. Addendum entered by Allison Lizama R.N. 04/30/19 15:54: Was able to speak to ALINA Marrero branch operation evaluation manager. Stated that she has guardianship paperwork available, showing Willis Clemons. She will fax over information. She has no other documents. Left a message for PERLA Romero at [facility] as well. Her phone number is: [phone]. Addendum entered by Allison Lizama R.N. 04/30/19 15:16: Attempted to reach ALINA Marrero case fitter, regarding any POA paperwork that they may have of record, or POLST. Asked her to call this case fitter back. Original Note: DCP Cont: Checked in with ICU nurse, Zaki. Patient continues to remain intubated, family not at bedside at this time. Attempted to reach grandfather, as well, as Milagro stated in last note, number disconnected. According to ICU staff, they have not yet seen him. Will continue to offer support and any resources that family may need for patient. P: DCP to continue to follow case closely. Will be available for family as well. Allison Lizama RN/Failure Analysis Engineer
[2019-04-30 11:27] LABS: Neutrophils Absolute Manual 6960 /uL (3000-5900); Total Cells Counted 100
[2019-04-30 11:35] LABS: RBC Morphology Normal Morphology
[2019-04-30 11:36] LABS: Platelet Count 145 X10^3/uL (150-400)
--- NOTE | 2019-04-30 13:20 | PM.PN.1 ---
Subjective Date Patient Seen: 04/30/19 Time Patient Seen: 08:00 Interval history: Over weekend declined- needed intubation for hypoxic resp failure from aspriation pna. Over last 24hrs has had declining vent settings. Septic physiology resolved. Was started on furosimide with albumin for diuresis. ROSALEE resolved. Has had intermitent fevers to 101.5. Large volume formed stool x 2 today I/O 2.8/5.2 800 NGT - dark bilious 4.1 uop Last ABG 7.49/30/100/ -1 on 13/04/16/420 PRVC Exam Vital Signs (past 8 hours): - 04/30/19 06:00 04/30/19 06:23 04/30/19 07:00 Temperature 101.5 F H 101.5 F H Pulse Rate 68 63 Respiratory Rate 16 16 Blood Pressure 135/76 127/77 Pulse Oximetry 99 100 04/30/19 08:00 04/30/19 08:46 04/30/19 09:00 Temperature 99.7 F H 99.7 F H Pulse Rate 72 58 L Respiratory Rate 16 16 Blood Pressure 117/68 142/82 H Pulse Oximetry 99 100 04/30/19 10:00 04/30/19 10:44 04/30/19 12:18 Temperature 99.8 F H 98.9 F Pulse Rate 74 82 78 Respiratory Rate 15 14 23 Blood Pressure 120/77 120/77 126/84 Pulse Oximetry 99 100 99 04/30/19 13:00 Temperature Pulse Rate 74 Respiratory Rate 23 Blood Pressure 123/76 Pulse Oximetry 99 Fraction of Inspired Oxygen 30 Oxygen Delivery Method Mechanical Ventilation Oxygen Flow Rate 35 Narrative Exam Narrative: intubated sedated Rass -2 NGT well secured bilateral breathsounds with minimal advential breath sounds Abd soft, nondistended, much improved over imediate post op, wound CDI periphery warm Objective Labs Result Diagrams: 04/30/19 05:10 04/30/19 05:10 Labs: Laboratory Results - last 24 hr 04/29/19 04/29/19 04/30/19 16:00 17:42 05:10 WBC 8.7 RBC 3.28 L Hgb 9.6 L Hct 27.8 L MCV 84.8 MCH 29.1 MCHC 34.3 RDW 15.4 H Plt Count 145 L Neut % (Auto) 85.9 H Lymph % (Auto) 7.6 L [place] % (Auto) 3.9 Eos % (Auto) 2.2 Baso % (Auto) 0.4 Neut # (Auto) 7500 H Lymph # (Auto) 700 L [place] # (Auto) 300 Eos # (Auto) 200 Baso # (Auto) 0 Total Counted 100 Seg Neutrophils % 68.0 Band Neutrophils % 12.0 H Lymphocytes % (Manual) 10.0 L Atypical Lymphs % 1.0 H Monocytes % (Manual) 3.0 Eosinophils % (Manual) 6.0 H Neutrophils # (Manual) 6960 H RBC Morphology Normal morphology ABG pH 7.47 H ABG pCO2 32.4 L ABG pO2 126 H ABG HCO3 24 ABG Total CO2 25 ABG O2 Saturation 99 ABG Base Excess 0.0 FiO2 50 Sodium 144 Potassium 2.5 L* Chloride 110 H Carbon Dioxide 26 BUN 15 Creatinine 1.10 Estimated GFR > 60.0 BUN/Creatinine Ratio 13.6 Glucose 125 H Calcium 7.9 L Magnesium 04/30/19 04/30/19 05:10 09:34 WBC RBC Hgb Hct MCV MCH MCHC RDW Plt Count Neut % (Auto) Lymph % (Auto) [place] % (Auto) Eos % (Auto) Baso % (Auto) Neut # (Auto) Lymph # (Auto) [place] # (Auto) Eos # (Auto) Baso # (Auto) Total Counted Seg Neutrophils % Band Neutrophils % Lymphocytes % (Manual) Atypical Lymphs % Monocytes % (Manual) Eosinophils % (Manual) Neutrophils # (Manual) RBC Morphology ABG pH 7.49 H ABG pCO2 29.8 L ABG pO2 100 ABG HCO3 23 ABG Total CO2 24 ABG O2 Saturation 98 ABG Base Excess -1.0 FiO2 30 Sodium 145 Potassium 2.8 L Chloride 106 Carbon Dioxide 33 H BUN 12 Creatinine 1.10 Estimated GFR > 60.0 BUN/Creatinine Ratio 10.9 Glucose 143 H Calcium 8.7 Magnesium 1.7 Assessment & Plan Assessment & Plan narrative: 34 yo man POD4 s/p exlap and MIGUEL with enterotomy and closure for SBO from ingested wetwipes bezor x3, with aspiration PNA and hypoxic respiratory failure now resolving on abx and vent support. now with bowel function neuro - [place] APAP, hydromorphone, sedated on proprofol. on IV Keppra for seizure disorder pulm- minimal 02 need, sedation vacation, and SBP to assess if meets criteria to extubate CV - no issues GI - obstruction resolving , cont NGT, stool softeners PEG - continue canela for good I and O measure in non verbal no cooperative pt, ROSALEE resolving, near euvolemia - stopping furosimide and albumin Heme - enox dvt proph ID - on day 4 pip/benjie for asp pna - MRSA + nasal swab but clinically improving with falling resp support and improving cxr. will add Vanco if improvement trend stalls TLD canela, PICC, ETT 45 min critical care time Quality VTE Deep Vein Thrombosis/Pulmonary Embolism Present on Admission: No
[2019-04-30 13:52] LABS: Fractionated Inspired Oxygen 30; HCO3 ABG 23 mmol/L (22-26); Oxygen Saturation ABG 96 % (95-100); PCO2 ABG 35.9 mmHg (35-45); PO2 ABG 77 mmHg (80-100); TCO2 ABG 24 mmol/L (21-31); pH ABG 7.42 (7.35-7.45)
[2019-04-30 13:58] LABS: HEMOLYSIS < 15 (0-50); Potassium 3.5 mmol/L (3.4-5.1)
[2019-04-30] MEDS: HYDROMORPHONE 0.5 MG INJ IV ×4 (14:00→23:45)
[2019-04-30] MEDS: LORazepam 2 MG/ML INJ 4 MG IV (15:24)
--- NOTE | 2019-04-30 15:27 | DI.RAD.S_ITS ---
PROCEDURE: XR CHEST 1V INDICATIONS: PNA, intubated TECHNIQUE: One view of the chest was acquired. COMPARISON: [facility], CR, XR CHEST 1V, 04/29/2019, 11:29. FINDINGS: Surgical changes and devices: ET tube is 4.7 cm superior to aurelio. PICC line projects to the atrial-caval junction. Tip of NG tube crosses the GE junction with side-port at the gastroesophageal junction. Lungs and pleura: Increasing perihilar opacities noted concerning for pulmonary edema. No pleural effusions or pneumothorax. Mediastinum: Mediastinal contours appear normal. Heart size is normal. Bones and chest wall: No suspicious bony lesions. Overlying soft tissues appear unremarkable. Gaseous distention of loops of bowel in the visualized abdomen. IMPRESSION: 1. ET tube 4.7 cm superior to the aurelio. 2. Increasing perihilar opacities concerning for pulmonary edema. 3. Gaseous distention of loops of small bowel the visualized abdomen which could represent ileus or small bowel obstruction. Please correlate with clinical data. Dictated by: Marilyn Mejias MD, PhD on 04/30/2019 at 8:51 Approved by: Marilyn Mejias MD, PhD on 04/30/2019 at 8:53
[2019-04-30] MEDS: POTASSIUM CHLORIDE 10 MEQ in SODIUM CHLORIDE 0.9% 50 ML 55 ML IV ×4 (15:39→19:15)
--- NOTE | 2019-04-30 15:46 | PM.EVENT ---
Date Patient Seen: 04/30/19 Time Patient Seen: 15:47 34 yo M with siezure disorder s/p generalized complex seizure after recent cessation of proprofol gtt after extubation. given 1mg IV lorazapam followed by 4mg with cessation. Now resting comfortably Plan: Keppra level Load with 1.5g keppra then resume usual dosing with 1g Q 12hr IV
[2019-04-30] MEDS: levETIRAcetam 1,500 MG in SODIUM CHLORIDE 0.9% 100 ML 460 ML IV (16:36)
--- NOTE | 2019-04-30 17:45 | RT ---
Patient had seizure post-extubation and was given 5mg Ativan subsequently. Patient has developed high respiratory rate which is sometimes seen post-dictal, but with snoring respirations. Called MD Hazel and asked if he would like a nasal trumpet and ETCO2 monitoring. It was considered but was reluctant due to patient already having NG down. Was asked if I had any evidence that the patient was retaining CO2 so suggested just putting on the ETCO2 monitor to see. Patient's ETCO2 reading is between 34 and 38. Called MD Hazel to let him know. No further orders. Patient is on 6 liter nasla cannula weaned to 4 liters, sat 100% RR varies between 21 and 36.
[2019-04-30] MEDS: LORazepam 2 MG/ML INJ 1 MG IV (22:55)
[2019-05-01] VITALS (27 sets, daily range): BP systolic 95–158; BP diastolic 54–102; PULSE 83–136; RESP 20–99; TEMP 36.6–38.3; O2SAT 91–100
[2019-05-01] MEDS: levETIRAcetam 1,000 MG in SODIUM CHLORIDE 0.9% 100 ML 440 ML IV (00:10)
[2019-05-01] MEDS: LORazepam 2 MG/ML INJ 4 MG IV ×3 (00:10→16:31)
[2019-05-01] MEDS: HYDROMORPHONE 0.5 MG INJ IV ×5 (02:40→17:21)
[2019-05-01] MEDS: ACETAMINOPHEN 650 MG SUPP PR ×2 (04:58→17:00)
[2019-05-01 05:13] LABS: Hematocrit 30.8 % (41-53); Hemoglobin 10.2 g/dL (13.5-17.5); Mean Corpuscular HGB Conc 33.3 % (30-36); Mean Corpuscular Hemoglobin 28.8 PG (26-34); Mean Corpuscular Volume 86.6 fL (80-100); Platelet Count 142 X10^3/uL (150-400); Red Blood Cell Count 3.56 X10^6/uL (4.5-5.9); Red Cell Distribution Width 15.2 % (11.6-14.8); White Blood Cell Count 9.3 X10^3/uL (4.5-11.0)
[2019-05-01 05:16] LABS: BUN Creatinine Ratio 12.2 (6-22); Blood Urea Nitrogen 11 mg/dL (9-20); Calcium 8.2 mg/dL (8.4-10.2); Carbon Dioxide 26 mmol/L (22-32); Chloride 112 mmol/L (98-107); Estimated Glomerular Filt Rate > 60.0 mL/min (>60); Glucose 100 mg/dL (70-100); HEMOLYSIS < 15 (0-50); Magnesium 2.1 mg/dL (1.6-2.3); Phosphorous 2.7 mg/dL (2.5-4.5); Potassium 4.2 mmol/L (3.4-5.1); Sodium 143 mmol/L (137-145)
[2019-05-01 05:25] LABS: Anisocytosis 1+; Neutrophils Absolute Manual 8184 /uL (3000-5900); Total Cells Counted 100
[2019-05-01] MEDS: PIPERACILLIN-TAZO 3.375 GM/50 ML FROZ.PIGGY IV ×3 (06:20→17:28)
--- NOTE | 2019-05-01 06:53 | PC.NURSE ---
NOC Shift: At start of shift pt restless, tachycardic >130, tachypnic 30's hypertensive 158/98. Pt having difficulty clearing secretions w/cough and chest secretions post extubation 04/30. NTT SXN'd for airway clearance copious amts of thick yellow secretions. Medicated for seizures x2 which is baseline for pt. Low grade temps treated w/rectal tylenol. Cummings. Remains ICU status.
--- NOTE | 2019-05-01 08:53 | P.PN_ITS ---
Subjective Date Patient Seen: 05/01/19 Time Patient Seen: 07:20 Interval history: Events: Extubated yesterday 15min generalized complex seizure yesterday PM - arrested with 4mg lorazapam IV after stopping propofol gtt, loaded on Keppra1.5g with 1g BID maintenance. Three seizures this a.m. arrest status post 4 mg lorazepam IV. Multiple bowel movements yesterday Subjective -nonverbal, appears comfortable I/O 2.9/5 4.1 uop 885 NGT bands normalized to 7, wbc 9.3 Exam Vital Signs (past 8 hours): - 05/01/19 01:03 05/01/19 02:04 05/01/19 02:41 Temperature Pulse Rate 116 H 115 H 99 H Respiratory Rate 30 H 31 H 99 H Blood Pressure 141/88 H Pulse Oximetry 96 100 100 05/01/19 03:01 05/01/19 04:00 05/01/19 04:35 Temperature 98.3 F 99.8 F H Pulse Rate 106 H 110 H Respiratory Rate 27 H 22 Blood Pressure 141/82 H 141/82 H Pulse Oximetry 100 100 05/01/19 05:00 05/01/19 06:07 05/01/19 07:20 Temperature 100.0 F H 99.9 F H 99.1 F Pulse Rate 93 H 84 83 Respiratory Rate 24 30 H 29 H Blood Pressure 126/83 128/78 122/78 Pulse Oximetry 100 100 100 05/01/19 08:00 Temperature 98.6 F Pulse Rate 115 H Respiratory Rate 28 H Blood Pressure 134/85 Pulse Oximetry 100 Fraction of Inspired Oxygen 30 Oxygen Delivery Method High Flow Nasal Cannula Oxygen Flow Rate 3 Narrative Exam Narrative: Nonverbal resting comfortably Status post recent benzo for seizure, sonorous breath sounds Lungs an was surprisingly minimal adventitial sounds, on 3 L O2 Regular rate and rhythm Abdomen soft nondistended of apparently nontender, staple line clean dry and intact Periphery warm well perfused Fully in place draining clear yellow urine Objective Labs Result Diagrams: 05/01/19 04:50 05/01/19 04:50 Labs: Laboratory Results - last 24 hr 04/30/19 04/30/19 04/30/19 05:10 09:34 12:48 WBC RBC Hgb Hct MCV MCH MCHC RDW Plt Count 145 L Total Counted 100 Seg Neutrophils % 68.0 Band Neutrophils % 12.0 H Lymphocytes % (Manual) 10.0 L Atypical Lymphs % 1.0 H Monocytes % (Manual) 3.0 Eosinophils % (Manual) 6.0 H Neutrophils # (Manual) 6960 H RBC Morphology Normal morphology Anisocytosis ABG pH 7.49 H 7.42 ABG pCO2 29.8 L 35.9 ABG pO2 100 77 L ABG HCO3 23 23 ABG Total CO2 24 24 ABG O2 Saturation 98 96 ABG Base Excess -1.0 -1.0 FiO2 30 30 Sodium Potassium Chloride Carbon Dioxide BUN Creatinine Estimated GFR BUN/Creatinine Ratio Glucose Calcium Phosphorus Magnesium 04/30/19 05/01/19 05/01/19 13:30 04:50 04:50 WBC 9.3 RBC 3.56 L Hgb 10.2 L Hct 30.8 L MCV 86.6 MCH 28.8 MCHC 33.3 RDW 15.2 H Plt Count 142 L Total Counted 100 Seg Neutrophils % 81.0 H Band Neutrophils % 7.0 Lymphocytes % (Manual) 7.0 L Atypical Lymphs % Monocytes % (Manual) 2.0 Eosinophils % (Manual) 3.0 Neutrophils # (Manual) 8184 H RBC Morphology See below Anisocytosis 1+ H ABG pH ABG pCO2 ABG pO2 ABG HCO3 ABG Total CO2 ABG O2 Saturation ABG Base Excess FiO2 Sodium 143 Potassium 3.5 4.2 Chloride 112 H Carbon Dioxide 26 BUN 11 Creatinine 0.90 Estimated GFR > 60.0 BUN/Creatinine Ratio 12.2 Glucose 100 Calcium 8.2 L Phosphorus 2.7 Magnesium 2.1 Assessment & Plan Assessment & Plan narrative: 34 yo man POD5 s/p exlap and MIGUEL with enterotomy and closure for SBO from ingested wetwipes bezor x3, with aspiration PNA and hypoxic respiratory failure improving from both pulmonary and ID perspective. M ultiple seizures since extubated yesterday. neuro - [place] APAP, hydromorphone, ongoing seizures on 1 g b.i.d. Keppra. Medicine consulted - appreciate recs. Reload? Fosphenytoin? pulm-O2 requirements and exam continue to improve CV - no issues GI - obstruction resolved , cont NGT due to aspiration risk and ongoing elevated output at 800, stool softeners PEG - continue canela for good I and O measure in non verbal no cooperative pt, ROSALEE resolved, autodiuresing Heme - enox dvt proph ID - on day 5 pip/benjie for asp pna - MRSA + nasal swab but clinically improving with falling resp support. will add Vanco if improvement trend stalls CASSIDYD hilton, PICC, PIV Quality VTE Deep Vein Thrombosis/Pulmonary Embolism Present on Admission: No
[2019-05-01] MEDS: ENOXAPARIN 40 MG/0.4 ML SYRINGE SUBCUT (09:00)
--- NOTE | 2019-05-01 11:39 | CM.DPC ---
DCP Cont: Gave copy of guardian paper work to ICU, for them to put in patient's chart. Have not yet seen family at bedside today. Patient was extubated, and had suffered a seizure yesterday. At this time, patient is sleeping. According to Prisca, ICU nurse, patient's caregiver, Moreno, had been in sitting with patient yesterday. P: DCP to continue to follow closely and be available for any additional resources that patient may need as he gets closer to discharge. Allison Lizama RN/Curtain Fitter
[2019-05-01] MEDS: levETIRAcetam 1,000 MG in SODIUM CHLORIDE 0.9% 100 ML 110 ML IV (12:47)
[2019-05-01] MEDS: LORazepam 2 MG/ML INJ 1 MG IV (13:22)
--- NOTE | 2019-05-01 14:28 | PM.CN ---
History of Present Illness Date Patient Seen: 05/01/19 Chief complaint: nausea Narrative: Patient is a 34-year-old male who was admitted to the hospital for small bowel obstruction secondary to foreign body. Patient underwent exploratory laparotomy and foreign body removal secondary to a white patch as well as fecal disimpaction. 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 He also has a seizure disorder for which she takes Vimpat, oxcarbazepine, Topamax. Since his surgical procedure the patient has been NPO and has been managed with IV Keppra. He had a complicated postoperative course requiring intubation for respiratory failure secondary to aspiration pneumonia. His ET aspirate revealed Proteus mirabilis and Enterobacter for which she is on Zosyn at this time. Patient remains NPO. At this time he is non for and minimally responsive. He did received 0.5 mg of Dilaudid prior to my examination. According to his nurse the patient was awake and leaning towards his mother and father earlier today. This is the 1st time he slept in some time. The patient has had multiple seizures. He typically has 3 seizures per week. Since extubation he has had multiple seizures per day. Despite increasing his Keppra he continues to seize. It is unclear when he will be able to have oral intake or whether we will be able to use his NG to for medications. I have been asked to assist with medical management of his uncontrolled seizure disorder. 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 (Acute) Seizure (Acute) Tuberous sclerosis (Acute) Surgical History H/O brain surgery (Acute) History of intestinal surgery (Acute) Social History household members: family and caregiver Smoking Status: Never smoker alcohol intake: never Social History household members: family and caregiver Smoking Status: Never smoker alcohol intake: never Meds Home Medications Medication Instructions Recorded Confirmed Type Vimpat 150 mg PO BID #60 tab 01/31/18 04/26/19 Rx Wheelchair: Manual Lightweight 1 dev MISCELLANEOUS DIRECTED 04/26/19 04/26/19 History [Ensure] 1 ea PO DIRECTED 04/26/19 04/26/19 History baclofen 0 tab PO SEE INSTRUCTIONS PRN 04/26/19 04/26/19 History bisacodyl [Dulcolax (bisacodyl)] 10 mg NH PRN PRN 04/26/19 04/26/19 History loratadine 10 mg PO DAILY 04/26/19 04/26/19 History oxcarbazepine 600 mg PO BID 04/26/19 04/26/19 History polyethylene glycol 3350 [Miralax] 17 gm PO DAILY 04/26/19 04/26/19 History topiramate 100 mg PO BEDTIME 04/26/19 04/26/19 History topiramate [Topamax] 200 mg PO QAM 04/26/19 04/26/19 History Allergies Allergy/AdvReac Type Severity Reaction Status Date / Time lamotrigine [LAMOTRIGINE] Allergy Mild Verified 04/25/19 22:10 tramadol [TRAMADOL] Allergy Mild RASH Verified 04/25/19 22:10 ibuprofen [IBUPROFEN] AdvReac Mild UPSET Verified 04/25/19 22:10 STOMACH Review of Systems Review of Systems Unable to obtain family history as his family is not here the patient is nonverbal unobtainable due to mental status and other Exam Vital Signs (past 8 hours): - 05/01/19 07:20 05/01/19 08:00 05/01/19 09:00 Temperature 99.1 F 98.6 F 98.0 F Pulse Rate 83 115 H 108 H Respiratory Rate 29 H 28 H 32 H Blood Pressure 122/78 134/85 138/92 H Pulse Oximetry 100 100 100 05/01/19 09:01 05/01/19 10:00 Temperature 98.7 F Pulse Rate 115 H 109 H Respiratory Rate 20 31 H Blood Pressure Pulse Oximetry 97 97 Fraction of Inspired Oxygen 30 Oxygen Delivery Method Room Air Oxygen Flow Rate 0 Narrative Exam Narrative: Ill-appearing young male sleeping but arousable HEENT: Normocephalic atraumatic, patient with multiple acne type lesions on his face, Oropharynx reveals dry mucous membranes, neck is supple Lungs: Loud coarse breath sounds bilateral Cardiac exam regular rate rhythm normal S1-S2 Abdomen: Belly is soft, rafael noted in the midline incision, there are no exudates were serous drainage. There are no palpable masses. Bowel tones are hypoactive. There is no noted rigidity. Extremities: Bilateral pedal edema is noted Skin: No lesions in the lower or upper extremity Neuro exam: Unobtainable at this patient asleep but arouses Objective Labs Result Diagrams: 05/01/19 04:50 05/01/19 04:50 Labs: Laboratory Results - last 24 hr 05/01/19 05/01/19 04:50 04:50 WBC 9.3 RBC 3.56 L Hgb 10.2 L Hct 30.8 L MCV 86.6 MCH 28.8 MCHC 33.3 RDW 15.2 H Plt Count 142 L Total Counted 100 Seg Neutrophils % 81.0 H Band Neutrophils % 7.0 Lymphocytes % (Manual) 7.0 L Monocytes % (Manual) 2.0 Eosinophils % (Manual) 3.0 Neutrophils # (Manual) 8184 H RBC Morphology See below Anisocytosis 1+ H Sodium 143 Potassium 4.2 Chloride 112 H Carbon Dioxide 26 BUN 11 Creatinine 0.90 Estimated GFR > 60.0 BUN/Creatinine Ratio 12.2 Glucose 100 Calcium 8.2 L Phosphorus 2.7 Magnesium 2.1 Assessment & Plan Assessment & Plan narrative: 34-year-old male status post exploratory laparotomy for removal of a foreign body and rectal disimpact I am asked to evaluate for assistance with his current uncontrolled seizures. The patient is normally managed on 3 antiepileptic medications to include oxcarbazepine, topiramate, and Vimpat. While intubated and on propofol his seizures were well controlled. Since extubation he has had multiple seizures per day. At this point given his NPO status would continue him on Keppra at the current dose of 150 twice daily. In addition will load him with 1 g of Dilantin. Have asked pharmacy to assist with managing his Dilantin level. Anticipate him needing 200 mg of IV Dilantin daily until he is able to take oral intake or his NG tube is able to be used for medications. 2. Aspiration pneumonia, with known Proteus and Enterobacter. Agree with Zosyn as written 3. Acute hypoxic respiratory failure, now resolved 4. Tuberous sclerosis, chronic 5. Status post exploratory laparotomy for foreign body removal and rectal disimpact 6. Protein calorie malnutrition will defer to surgery regarding nutritional status Thank you very much for this consultation will continue to follow with you.
--- NOTE | 2019-05-01 15:26 | PC.NURSE ---
pt noted to have at minimum of 3 seizures this am as evidenced by far non focused gaze and hr elevated to 166 bpm - medicated with 4mg iv lorazepam and intermittently with iv dilaudid- bloody secretions from right nare after ng suctioning by RT- NEW ORDERS PER DR LEDBETTER -
[2019-05-01] MEDS: PHENYTOIN 1,000 MG in SODIUM CHLORIDE 0.9% 100 ML 120 ML IV (15:50)
[2019-05-01] MEDS: DEXTROSE 5%-NS W/KCL 20MEQ 1,000 ML 84 MEQ IV (15:50)
[2019-05-01] MEDS: INSULIN ASPART 100 UNIT/ML INSULN PEN SUBCUT (17:29)
[2019-05-01] MEDS: [UNRECOGNIZED DRUG - OTHER] IV (22:12)
[2019-05-01] MEDS: FOSPHENYTOIN 100 MG IV (22:12)
--- NOTE | 2019-05-01 23:46 | PC.NURSE ---
Addendum entered by Matthew Fuentes R.N. 05/02/19 05:12: 0300: Less restless, sleeping intermittently. Addendum entered by Matthew Fuentes R.N. 05/02/19 01:43: 0100: Pt restless and moaning. Medicated for pain with Dilaudid 0.5mg IV. Original Note: Wireless Team Member Note: 2345: Awake, looks around. No non-verbal signs of pain or discomfort. PICC in place in rt upper arm, with D5NS/KCL infusing at 84cc/hr. [address] in rt wrist and rt AC. NGT in place, secured with tape to nose and lt cheek, to low intermittent suction. Cmumings catheter patent, urine is merced. Turned and repositioned at this time. Vital signs stable. Remains on O2 2L/NC.
[2019-05-02] VITALS (13 sets, daily range): BP systolic 109–143; BP diastolic 72–97; PULSE 99–112; RESP 15–38; TEMP 36.9–37.6; O2SAT 94–100
[2019-05-02] MEDS: levETIRAcetam 1,000 MG in SODIUM CHLORIDE 0.9% 100 ML 440 ML IV ×3 (00:26→23:52)
[2019-05-02] MEDS: PIPERACILLIN-TAZO 3.375 GM/50 ML FROZ.PIGGY IV ×5 (00:26→23:52)
[2019-05-02] MEDS: HYDROMORPHONE 0.5 MG INJ IV ×7 (00:54→23:52)
[2019-05-02 05:08] LABS: Add Manual Diff / Slide Review NO; Basophils Absolute Auto 100 /uL (0-100); Basophils Percent Auto 0.7 % (0-2); Eosinophils Absolute Auto 200 /uL (0-450); Eosinophils Percent Auto 2.6 % (2-4); Hematocrit 30.3 % (41-53); Hemoglobin 9.9 g/dL (13.5-17.5); Lymphocytes Absolute Auto 1000 /uL (1100-4500); Lymphocytes Percent Auto 12.7 % (25-40); Mean Corpuscular HGB Conc 32.5 % (30-36); Mean Corpuscular Hemoglobin 28.4 PG (26-34); Mean Corpuscular Volume 87.4 fL (80-100); Monocytes Absolute Auto 700 /uL (0-900); Monocytes Percent Auto 9.4 % (3-14); Neutrophils Absolute Auto 5800 /uL (1500-7000); Neutrophils Percent Auto 74.6 % (50-75); Platelet Count 146 X10^3/uL (150-400); Red Blood Cell Count 3.47 X10^6/uL (4.5-5.9); Red Cell Distribution Width 15.2 % (11.6-14.8); White Blood Cell Count 7.8 X10^3/uL (4.5-11.0)
[2019-05-02] MEDS: DEXTROSE 5%-NS W/KCL 20MEQ 1,000 ML 84 MEQ IV ×2 (05:09→17:38)
[2019-05-02 05:17] LABS: Magnesium 1.8 mg/dL (1.6-2.3)
[2019-05-02 05:18] LABS: BUN Creatinine Ratio 12.5 (6-22); Blood Urea Nitrogen 10 mg/dL (9-20); Calcium 8.4 mg/dL (8.4-10.2); Carbon Dioxide 26 mmol/L (22-32); Chloride 112 mmol/L (98-107); Estimated Glomerular Filt Rate > 60.0 mL/min (>60); Glucose 127 mg/dL (70-100); HEMOLYSIS < 15 (0-50); Potassium 4.1 mmol/L (3.4-5.1); Sodium 144 mmol/L (137-145)
[2019-05-02 05:40] LABS: B Type Natriuretic Peptide 393 (<100)
[2019-05-02 05:51] LABS: Procalcitonin 0.91 ng/mL (<0.5)
[2019-05-02] MEDS: FOSPHENYTOIN 100 MG IV ×3 (06:21→21:45)
[2019-05-02] MEDS: [UNRECOGNIZED DRUG - OTHER] IV ×3 (06:21→21:45)
[2019-05-02] MEDS: ENOXAPARIN 40 MG/0.4 ML SYRINGE SUBCUT (08:30)
[2019-05-02] MEDS: POLYETHYLENE GLYCOL 3350 17 GM POWD.PACK PO (08:30)
--- NOTE | 2019-05-02 10:33 | DIET.PN ---
RD screen (no consult ordered) re 6d s/p surgery NPO ht: 162.5cm wt: 59.1kg BMI: 22.4 Assessment: Pt reported N/V >24h prior to procedure on 04/26/19 to remove sanitary wipe obstruction from SI and impacted feces from colon. Pt extubated 04/29/19. Prior to admission, pt ate table foods, currently has NG tube not being used for nourishment. Pt has had multiple BMs in past few days, no signs of abd bloating. Diagnosis: Inadequate Protein energy consumption r/t GI surgery and vent aeb no nourishments for 6 d, nausea and emesis 24h prior to admission. Intervention: Recc EN feeding paola if necessary (at least trophic feed) or advancement to PO intake as tolerated to stimulate enterocytes. Ramp up intake slowly as refeeding is possible d/t length of time NPO. Monitoring/Evaluation: RD f/u daily until PO intake stable, consider ONS once refeeding no longer concern.
--- NOTE | 2019-05-02 11:32 | DI.RAD.S_ITS ---
PROCEDURE: XR CHEST 1V INDICATIONS: ngt placement check TECHNIQUE: One view of the chest was acquired. COMPARISON: [facility], , XR CHEST 1V, 04/30/2019, 5:41. FINDINGS: Surgical changes and devices: NG tube tip is in the stomach lumen and is in satisfactory position. Right-sided PICC line tip is in SVC/right atrium. Lungs and pleura: Hazy air space opacities are seen scattered in bilateral lung an more prominent in bilateral upper lobes slightly worsened compared to previous study. No pleural effusions or pneumothorax. Mediastinum: Mediastinal contours appear normal. Heart size is normal. Bones and chest wall: No suspicious bony lesions. Overlying soft tissues appear unremarkable. IMPRESSION: NG tube and right-sided PICC line are in satisfactory position. ET tube is not well-seen on this study suggest clinical correlation. Hazy airspace opacities in bilateral lung an more prominent compared to 04/30/19 study. No gross pneumothorax. Dictated by: Nathan Parada M.D. on 05/02/2019 at 13:43 Approved by: Nathan Parada M.D. on 05/02/2019 at 13:48
--- NOTE | 2019-05-02 13:10 | PC.NURSE ---
Addendum entered by Prisca Adan R.N. 05/02/19 13:14: RECHECKED WEIGHT IT WAS QUESTIONED - REVISED WEIGHT ENTERED INTO COMPUTER 54.6KG Original Note: PT MORE ALERT TODAY HAS NOT REQUIRED ANY LORAZEPAM DOSES AND MEDICATED WITH 0.5MG IV DILAUDID PRN FOR PAIN- MARS REMOVED AND BRIEF PLACED, CXR DONE TO CONFIRM NGT PLACEMENT PER MD ORDER AND POTENTIALLY NGT REMOVAL EITHER TODAY OR TOMORROW PER SURGEON- PLANNING TO FEED ORALLY AT THAT TIME - NO TPN, SR/ST RATE 88-113 BPM AND RESTRAINTS CONTINUE DUE TO HIGH RISK OF PULLING OUT NGT AND PTS INTERMITTENT REACHING FOR TUBES
--- NOTE | 2019-05-02 13:56 | P.PN_ITS ---
Subjective Date Patient Seen: 05/02/19 Interval history: Charanjit Grove is a 34-year-old male status post exploratory laparotomy for removal of a foreign body and rectal disimpaction. Medicine team was consulted for assistance with his current uncontrolled seizures. Patient has been seizure-free for approximately 18-24 hours. He is nonverbal. He is at his baseline mentation and moans chronically per family. Exam Vital Signs (past 8 hours): - 05/02/19 07:40 05/02/19 08:05 05/02/19 10:42 Temperature 98.5 F 99.1 F Pulse Rate 112 H 109 H 99 H Respiratory Rate 38 H 37 H 26 H Blood Pressure 143/91 H 136/84 128/80 Pulse Oximetry 100 98 97 05/02/19 12:00 Temperature 98.4 F Pulse Rate 99 H Respiratory Rate 21 Blood Pressure 134/97 H Pulse Oximetry 94 Fraction of Inspired Oxygen 30 Oxygen Delivery Method Room Air Oxygen Flow Rate 0 Narrative Exam Narrative: General: Young male lying in bed and in no acute distress, nonverbal and moans often/chronically. HEENT: Normocephalic, atraumatic. External ears without defect. Pupils equal, round, and reactive to light. Anicteric sclerae, moist conjunctivae, and no lid lag. Facial angiofibromas present on bilateral cheeks. Neck: Supple with full range of motion. No lymphadenopathy or thyromegaly. Cardiovascular: Regular rhythm, tachycardia, without murmurs, rubs, or gallops appreciated. Pulmonary: Clear to auscultation in anterior lung an bilaterally without crackles, wheezes, or rhonchi. Normal respiratory effort with no use of accessory muscles. Abdomen: Soft, bowel sounds hypoactive but present, does not appear to be tender other than around surgical site, nondistended. No hepatosplenomegaly or masses appreciated. Surgical wound appears to be healing well with rafael in place and no surrounding erythema. Extremities: No clubbing, cyanosis, or edema. Skin: Normal temperature, turgor, and texture; no rash, ulcers, or subcutaneous nodules appreciated. Neurological: Cranial nerves grossly intact. Psychiatric: Nonverbal and moans often/chronically. Objective Labs Result Diagrams: 05/02/19 04:55 05/02/19 04:55 Labs: Laboratory Results - last 24 hr 05/02/19 05/02/19 05/02/19 04:55 04:55 04:55 WBC 7.8 RBC 3.47 L Hgb 9.9 L Hct 30.3 L MCV 87.4 MCH 28.4 MCHC 32.5 RDW 15.2 H Plt Count 146 L Neut % (Auto) 74.6 Lymph % (Auto) 12.7 L [place] % (Auto) 9.4 Eos % (Auto) 2.6 Baso % (Auto) 0.7 Neut # (Auto) 5800 Lymph # (Auto) 1000 L [place] # (Auto) 700 Eos # (Auto) 200 Baso # (Auto) 100 Sodium Potassium Chloride Carbon Dioxide BUN Creatinine Estimated GFR BUN/Creatinine Ratio Glucose Calcium Magnesium 1.8 B-Natriuretic Peptide 393 H Procalcitonin 0.91 H 05/02/19 04:55 WBC RBC Hgb Hct MCV MCH MCHC RDW Plt Count Neut % (Auto) Lymph % (Auto) [place] % (Auto) Eos % (Auto) Baso % (Auto) Neut # (Auto) Lymph # (Auto) [place] # (Auto) Eos # (Auto) Baso # (Auto) Sodium 144 Potassium 4.1 Chloride 112 H Carbon Dioxide 26 BUN 10 Creatinine 0.80 Estimated GFR > 60.0 BUN/Creatinine Ratio 12.5 Glucose 127 H Calcium 8.4 Magnesium B-Natriuretic Peptide Procalcitonin Assessment & Plan Assessment & Plan narrative: Charanjit Grove is a 34-year-old male status post exploratory laparotomy for removal of a foreign body and rectal disimpaction. Medicine team was consulted for assistance with his current uncontrolled seizures. 1. 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 Active. -Patient is normally managed on 3 anti-epileptic medications to include oxcarbazepine, topiramate, and Vimpat and usually has 2-3 seizures per week. While intubated and on propofol his seizures were well controlled. Since extubation he has had multiple seizures per day. At this point given his NPO status, will continue Keppra 1000 mg twice daily (loaded with 1500 mg) and fosphenytoin 100 mg IV every 8 hours (loaded with 1000 mg of phenytoin) until he is able to take in PO or his NG tube is advanced and used for medications then recommend stopping IV anti-epileptic medicines and restart home seizure regimen. Possibility of decreased absorption initially once home regimen restarted and will anticipate possible seizures for 24 hours after IV antiepileptics dis continued. Pharmacy has been asked to assist with managing his Dilantin level. Continue Ativan as needed to óscar seizures. 2. Aspiration pneumonia, present on admission. Active. -Patient with known Proteus and Enterobacter. Agree with and continue Zosyn per surgery. 3. Acute hypoxemic respiratory failure, present on admission. Resolved. 4. Status post exploratory laparotomy for foreign body removal and rectal disimpaction. -Continue pain and postoperative management per surgery. 5. Protein calorie malnutrition, likely acute on chronic, present on admission. Stable. -Defer nutritional status to surgery. 6. Tuberous sclerosis, chronic, present on admission. Presumed stable. Thank you very much for this consultation. We will sign off at this time but feel free to call if there are further needs. Quality VTE Deep Vein Thrombosis/Pulmonary Embolism Present on Admission: No
[2019-05-02] MEDS: LORazepam 2 MG/ML INJ 1 MG IV ×2 (17:59→21:45)
--- NOTE | 2019-05-02 18:06 | PM.PN.1 ---
Subjective Date Patient Seen: 05/02/19 Time Patient Seen: 09:00 Interval history: No seizures since started on fosphenytoin in addition to Keppra Becoming more active Urine output continues to be excellent Unfortunately NG tube output continues to be high as well Exam Vital Signs (past 8 hours): - 05/02/19 10:42 05/02/19 12:00 05/02/19 14:05 Temperature 99.1 F 98.4 F Pulse Rate 99 H 99 H 107 H Respiratory Rate 26 H 21 15 Blood Pressure 128/80 134/97 H 132/83 Pulse Oximetry 97 94 94 05/02/19 15:53 05/02/19 18:00 Temperature 99.3 F 99.4 F Pulse Rate 111 H 111 H Respiratory Rate 21 23 Blood Pressure 125/77 133/88 Pulse Oximetry 95 100 Fraction of Inspired Oxygen 30 Oxygen Delivery Method Room Air Oxygen Flow Rate 0 Narrative Exam Narrative: Nonverbal but appears comfortable NG tube in place draining bilious contents Lungs clear to auscultation bilaterally Regular tachycardia Abdomen soft nondistended fairly nontender Wound clean dry and intact Periphery warm prior all perfused Objective Labs Result Diagrams: 05/02/19 04:55 05/02/19 04:55 Labs: Laboratory Results - last 24 hr 05/02/19 05/02/19 05/02/19 04:55 04:55 04:55 WBC 7.8 RBC 3.47 L Hgb 9.9 L Hct 30.3 L MCV 87.4 MCH 28.4 MCHC 32.5 RDW 15.2 H Plt Count 146 L Neut % (Auto) 74.6 Lymph % (Auto) 12.7 L [place] % (Auto) 9.4 Eos % (Auto) 2.6 Baso % (Auto) 0.7 Neut # (Auto) 5800 Lymph # (Auto) 1000 L [place] # (Auto) 700 Eos # (Auto) 200 Baso # (Auto) 100 Sodium Potassium Chloride Carbon Dioxide BUN Creatinine Estimated GFR BUN/Creatinine Ratio Glucose Calcium Magnesium 1.8 B-Natriuretic Peptide 393 H Procalcitonin 0.91 H 05/02/19 04:55 WBC RBC Hgb Hct MCV MCH MCHC RDW Plt Count Neut % (Auto) Lymph % (Auto) [place] % (Auto) Eos % (Auto) Baso % (Auto) Neut # (Auto) Lymph # (Auto) [place] # (Auto) Eos # (Auto) Baso # (Auto) Sodium 144 Potassium 4.1 Chloride 112 H Carbon Dioxide 26 BUN 10 Creatinine 0.80 Estimated GFR > 60.0 BUN/Creatinine Ratio 12.5 Glucose 127 H Calcium 8.4 Magnesium B-Natriuretic Peptide Procalcitonin Assessment & Plan Assessment & Plan narrative: 34 yo man POD6 s/p exlap and MIGUEL with enterotomy and closure for SBO from ingested wetwipes bezor x3, with aspiration PNA and hypoxic respiratory failure improving from both pulmonary and ID perspective. Now on minimal oxygen, WBC normal. Seizures now well controlled on fosphenytoin and Keppra IV neuro -on multimodal pain regimen, IV antiepileptics as above, plan to transition back to home oral medications once bowel function improved pulm-minimal O2 requirements and exam continue to improve CV - no issues, intermittent tachycardia not concerning GI - obstruction resolved , cont NGT x-ray today confirms in stomach and duodenum -output still too high to remove, stool softeners PEG -removed canela ROSALEE resolved, autodiuresing Heme - enox dvt proph ID - on day 6 pip/benjie for asp pna Nutrition -if unable to remove nasogastric tube tomorrow will consider TPN TLD canela, PICC, PIV Quality VTE Deep Vein Thrombosis/Pulmonary Embolism Present on Admission: No
--- NOTE | 2019-05-02 20:12 | PC.NURSE ---
1800- Nursing assessment entered by student nurse reviewed and I agree with the assessment.
[2019-05-02] MEDS: MUPIROCIN 22 GM OINT 1 APPLIC TOP (20:14)
[2019-05-02 20:31] LABS: Levetiracetam Keppra 34.7 mcg/mL (12.0-46.0)
--- NOTE | 2019-05-02 22:02 | PC.NURSE ---
2014 - Pt wake, moving down in the bed reaching for tubing. Moaning, restless. Attempt to redirect, reposition, Restraint check. Pt continues with restlessness. FLACC 5, Rx given for pain. Incision [employer]OLOGICAL OBSERVER. Brief dry. Seizure pads in place. 2139 - Pt continues to be restless, moaning increasing with agitated tone. Pulling against restraints, rubbing head and face against pillow. Ativan given. Hr remains tachycardic in the 100-110 range. 96% on RA. RR 20. Monitor.
[2019-05-03] VITALS (8 sets, daily range): BP systolic 122–146; BP diastolic 66–99; PULSE 93–113; RESP 16–23; TEMP 36.8–37.7; O2SAT 92–98
[2019-05-03] MEDS: LORazepam 2 MG/ML INJ 1 MG IV ×2 (00:46→04:34)
--- NOTE | 2019-05-03 01:00 | PC.NURSE ---
Pt restless, FLACC 5-6 - medicated with dilaudid per orders. SCD's placed at start of shift but pt became severely agitated with frequent grunting and kicking of BLE to chest so these were removed with moderate improvement. Pt remains agitated so medicated with ordered ativan. VSS, afebrile 99.1. Tele ST - rate 100-112. NGT to LIWS maintained. Bilateral soft wrist restraints in place to maintain NGT. Pt visualized multiple times attempting to pull at NGT, he even slides himself all the way down in bed to reach with his restrained hand. Needs constant supervision.
[2019-05-03] MEDS: HYDROMORPHONE 0.5 MG INJ IV ×4 (04:35→21:19)
[2019-05-03] MEDS: PIPERACILLIN-TAZO 3.375 GM/50 ML FROZ.PIGGY IV ×4 (05:55→23:43)
[2019-05-03] MEDS: INSULIN ASPART 100 UNIT/ML INSULN PEN SUBCUT ×2 (05:55→17:56)
[2019-05-03 06:57] LABS: Phenytoin / Dilantin 9.6 ug/mL (10-20)
[2019-05-03] MEDS: FOSPHENYTOIN 100 MG IV ×3 (07:06→22:05)
[2019-05-03] MEDS: [UNRECOGNIZED DRUG - OTHER] IV ×3 (07:06→22:05)
[2019-05-03] MEDS: DEXTROSE 5%-NS W/KCL 20MEQ 1,000 ML 84 MEQ IV ×2 (07:13→20:51)
[2019-05-03 08:16] LABS: BUN Creatinine Ratio 7.5 (6-22); Blood Urea Nitrogen 6 mg/dL (9-20); Calcium 8.3 mg/dL (8.4-10.2); Carbon Dioxide 28 mmol/L (22-32); Chloride 111 mmol/L (98-107); Estimated Glomerular Filt Rate > 60.0 mL/min (>60); Glucose 110 mg/dL (70-100); HEMOLYSIS < 15 (0-50); Magnesium 1.8 mg/dL (1.6-2.3); Potassium 3.8 mmol/L (3.4-5.1); Sodium 143 mmol/L (137-145)
--- NOTE | 2019-05-03 08:30 | CM.DPC ---
Addendum entered by Milagro Brunson LPN 05/03/19 08:48: Have left a vm for [employer]el [employer] In[employer] for pt and CMsp will be faxing clinical notes to her for her files. and . Original Note: DCP: continued: Case yesterday and discussed in Team Rounds. Guardianship paperwork noted: limited status: 2010 and with Grandfather Willis Brandt identified as guardian. Per RN Prisca Emerson/ICU Willis and pt's mother have been visiting and pt appears to have had very good care in the home setting. Plan yesterday was for ICU staff to alert this d/c shoe planner when family arrived. Updated contact numbers are on pt's white board/will retrieve this morning. P: per surgeon note of yesterday: start TPN today if NGT output is still to high. Pt is expected to go home on oral medications when stable for same.
[2019-05-03] MEDS: ENOXAPARIN 40 MG/0.4 ML SYRINGE SUBCUT (09:45)
[2019-05-03] MEDS: POLYETHYLENE GLYCOL 3350 17 GM POWD.PACK PO (09:45)
[2019-05-03] MEDS: MUPIROCIN 22 GM OINT 1 APPLIC TOP ×2 (09:45→20:48)
[2019-05-03] MEDS: levETIRAcetam 1,000 MG in SODIUM CHLORIDE 0.9% 100 ML 440 ML IV ×2 (11:28→23:42)
--- NOTE | 2019-05-03 12:13 | P.PN_ITS ---
Subjective Date Patient Seen: 05/03/19 Time Patient Seen: 12:12 Interval history: Resting comfortably [place] with pts care provider while he was visiting. Feels pt is near base line No seizure activity in last 24hrs Exam Vital Signs (past 8 hours): - 05/03/19 06:00 05/03/19 08:00 05/03/19 12:11 Temperature 99 F 99.6 F Pulse Rate 106 H 93 H 110 H Respiratory Rate 20 22 23 Blood Pressure 127/76 126/87 146/99 H Pulse Oximetry 96 94 94 Fraction of Inspired Oxygen 30 Oxygen Delivery Method Room Air Oxygen Flow Rate 0 Narrative Exam Narrative: No acute distress, appears comfortable NG tube output inspected -small bilious clumps but generally clear liquid - consistent with primary gastric output Lungs clear to auscultation bilaterally Regular tachycardia Abdomen soft nontender nondistended staple line clean dry and intact, minimally tympanic Periphery warm well perfused Objective Labs Result Diagrams: 05/02/19 04:55 05/03/19 07:15 Labs: Laboratory Results - last 24 hr 04/30/19 05/03/19 05/03/19 16:16 05:50 07:15 Sodium 143 Potassium 3.8 Chloride 111 H Carbon Dioxide 28 BUN 6 L Creatinine 0.80 Estimated GFR > 60.0 BUN/Creatinine Ratio 7.5 Glucose 110 H Calcium 8.3 L Magnesium 1.8 Phenytoin 9.6 L Levetiracetam 34.7 Assessment & Plan Assessment & Plan narrative: 34 yo man POD7 s/p exlap and MIGUEL with enterotomy and closure for SBO from ingested wetwipes bezor x3, with aspiration PNA and hypoxic respiratory failure now well NGT removed, outputs falling, abdomen soft, hx of BMS. much less bilious today neuro -on multimodal pain regimen, starting home antiepileptics, will keep IV keppra and fosphenytoin today to allow for po levels to increase. likely d/c tomorrow pulm- on RA, exam much improved CV - no issues, intermittent tachycardia not concerning GI - obstruction resolved - NGT removed, will watch today for nausea or emesis, if vomits reinsert NGT, started empriric metoclopramide -canela out, autodiuresing Heme - enox dvt proph ID - on day 7 pip/benjie for asp pna, ok to transition to PO tomorrow. Nutrition - will start diet tomorrow if tolerated NGT withdrawel, if NGT reinserted with need PICC and TPN - no longer with dedicated PICC line OK to d/c cont monitoring TLD PICC, PIV Quality VTE Deep Vein Thrombosis/Pulmonary Embolism Present on Admission: No
[2019-05-03] MEDS: BISACODYL 10 MG SUPP PR (12:15)
[2019-05-03] MEDS: METOCLOPRAMIDE 10 MG/2 ML INJ 5 MG IV ×3 (12:15→23:42)
--- NOTE | 2019-05-03 13:03 | PC.NURSE ---
Doing well. Pt is awake/alert. Able to track but nonverbal at baseline. Moves all extremities and turns self in bed. Midline incision RICARDO and well approximated with rafael. Dr. Rodriguez rounded and dc'd NGT at 1125. Pt tolerated well. Dr. Turcios gave verbal orders to d/c continuous cardiac monitoring, continuous pulse oximetry, change VS to Q4H. MD would like pt to remain ICU status for closer visual monitoring for now. States ok for meds with sips. Pt's caregiver at bedside states the pt is able to take pills whole with or without a carrier and needs assistance with eating but tolerates any consistency food/liquid. Reports pt does not like really cold food or drink. Called to pt's mom and requested she bring pt's vimpat from home. She states she will be up later in the afternoon and will bring it.
--- NOTE | 2019-05-03 13:47 | CM.DPC ---
DCP: continued: EMR reviewed and see that NGT is now successfully removed and that surgeon has updated pt's caregiver. Went to room again to check in. RN Ranjith busy with patient care. Contact numbers for mom Dottie Acharya are obtained from room board. Called Dottie and got through on the home phone: [phone]. Introduced self and role. Dottie confirms cell: [phone] is correct and that she does not have vm set up. Asked about Guardian Willis Brandt and if she could provide a current phone number. She stated this was not necessary as she was the one who cared for her son and made all his decisions. She further states that as far as she knows Willis has not visited pt, at least not while I have been here. She was reluctant to give further information so thanked her for the information provided and asked if the DCP team could be helpful in any way in terms of d/c planning. She said she couldn't think of anything at this time. Did let her know that the clinical information was sent to her son's Jt CM. P: home when stable for same. Will check in tomorrow and follow prn.
[2019-05-03] MEDS: VIMPAT 150 MG 150 EACH PO (20:48)
[2019-05-03] MEDS: OXcarbazepine 150 MG TABLET 600 MG PO (20:48)
--- NOTE | 2019-05-03 21:32 | PC.NURSE ---
2100- Assessment reviewed and found to be accurate. Patient had some oozing from the midline abdominal wound. The oozing was blood very small amount noted to be near the umbilicus and smears on the brief. Orient are intact. Area cleaned with sterile guaze and ABD applied leaving ends open for air circulation. No further oozing noted. Patient thrashes in the bed periodically and pulls his legs to chest it is assumed that he tugged at the incision by doing this. At no time did patient have his hands near the wound. Patient was able to take his 9pm po meds whole with apple juice. Swallow is intact and patient just needs time to ensure his pill has been swallowed in between pills. Pills were given one at a time sitting upright in bed. Patient is floor care now and is stable.
[2019-05-04 04:18] VITALS: BP 125/84; PULSE 105; RESP 20; TEMP 37.6; O2SAT 93
[2019-05-04] MEDS: FOSPHENYTOIN 100 MG IV ×2 (05:56→21:42)
[2019-05-04] MEDS: [UNRECOGNIZED DRUG - OTHER] IV ×2 (05:56→21:42)
[2019-05-04] MEDS: HYDROMORPHONE 0.5 MG INJ IV ×4 (05:58→23:51)
[2019-05-04] MEDS: PIPERACILLIN-TAZO 3.375 GM/50 ML FROZ.PIGGY IV ×3 (05:58→18:10)
[2019-05-04] MEDS: METOCLOPRAMIDE 10 MG/2 ML INJ 5 MG IV ×4 (05:58→23:50)
[2019-05-04 07:27] VITALS: BP 117/90; PULSE 105; RESP 22; TEMP 37.5; O2SAT 93
[2019-05-04] MEDS: OXcarbazepine 150 MG TABLET 600 MG PO ×2 (09:08→22:45)
[2019-05-04] MEDS: MUPIROCIN 22 GM OINT 1 APPLIC TOP ×2 (09:09→20:21)
[2019-05-04] MEDS: ENOXAPARIN 40 MG/0.4 ML SYRINGE SUBCUT (09:10)
[2019-05-04] MEDS: LORazepam 2 MG/ML INJ 1 MG IV (09:15)
[2019-05-04] MEDS: DEXTROSE 5%-NS W/KCL 20MEQ 1,000 ML 84 MEQ IV ×2 (09:17→21:49)
[2019-05-04] MEDS: VIMPAT 150 MG 150 EACH PO ×2 (10:33→22:44)
[2019-05-04] MEDS: TOPIRAMATE 100 MG TABLET 200 MG PO (10:33)
[2019-05-04 11:30] VITALS: BP 111/63; PULSE 106; RESP 19; TEMP 37.2; O2SAT 96
--- NOTE | 2019-05-04 12:50 | DIET.PN ---
RD screen (no consult ordered) ht: 162.5cm wt: 54.3kg BMI: 20.5 Assessment: Pt extubated 04/29/19. NG tube removed. Pt has been advanced to Clears. Tolerating small amount of room temperature clears. Nurse reported he was able to drink some ensure clear but did not like it as it was too cold. Diagnosis: Inadequate Protein energy consumption r/t GI surgery and vent aeb no nourishments for 6 d, nausea and emesis 24h prior to admission. Intervention: Continue clear liquid including ensure clear BID. Advance diet and intake amount as tolerated as refeeding is possible d/t length of time NPO. Monitoring/Evaluation: RD f/u daily until PO intake stable. Continue Ensure Clear w/ room temp meals. Consider ONS once refeeding no longer concern.
[2019-05-04] MEDS: levETIRAcetam 1,000 MG in SODIUM CHLORIDE 0.9% 100 ML 440 ML IV ×2 (13:12→23:51)
--- NOTE | 2019-05-04 13:36 | PC.NURSE ---
Addendum entered by Ranjith Jones R.N. 05/04/19 15:10: Pt had very saturated brief with stool and urine. TORB to send stool to lab to r/o c diff. Addendum entered by Ranjith Jones R.N. 05/04/19 14:14: Spoke with Dr. Alvarez via telephone. Reported pt has not voided, bladder scan amount. MD instructed to wait 2 hours, monitor for void, re scan if no void and notify if needed. Reported pt taking very little PO clear liquids, appears to cough/gag after taking PO, then does not allow feeding. Order received to advance to full liquids in attempt to give foods pt may like. Requested clarification for IV keppra and cerebyx. Awaiting orders. Addendum entered by Ranjith Jones R.N. 05/04/19 14:06: Pt has not voided today. Bladder scan shows >[address] Alvarez. Awaiting call back. Original Note: Sat pt bolt upright for lunch and positioned with pillows on both sides to maintain alignment. Spoon fed jello/liquids. Pt mostly pursed lips tightly closed not allowing for PO intake. Ate 1 bite of jello. On second bite of jello, pt spit it out and was noted to have a dry cough. Pt appears to be gagging. Offered broth and apple juice via spoon, straw, and syringe. Pt would not open mouth. Will attempt at a later time.
[2019-05-04 15:30] LABS: Levetiracetam Keppra 42.6 mcg/mL (12.0-46.0)
[2019-05-04 15:50] VITALS: BP 109/72; PULSE 98; RESP 20; TEMP 37.3; O2SAT 97
--- NOTE | 2019-05-04 16:32 | PM.PNPO.1 ---
Subjective Date Patient Seen: 05/04/19 Time Patient Seen: 08:32 Interval history: The patient is a gentleman post removal of foreign body bezoar causing small-bowel obstruction. Non communicative in an effective way. He does respond to voice and spontaneously opens eyes. Exam Vital Signs (past 8 hours): - 05/04/19 11:30 05/04/19 15:50 Temperature 98.9 F 99.1 F Pulse Rate 106 H 98 H Respiratory Rate 19 20 Blood Pressure 111/63 109/72 Pulse Oximetry 96 97 Fraction of Inspired Oxygen 30 Oxygen Delivery Method Room Air Oxygen Flow Rate 0 Narrative Exam Narrative: Lungs are clear to auscultation. Fair effort. Heart regular rate and rhythm without murmur gallop. His abdomen is soft mildly protuberant/distended nontender without mass. Incision intact. Little bit of blood staining at the edge of the incision from recent trauma the patient. Objective Labs Result Diagrams: 05/02/19 04:55 05/03/19 07:15 Labs: Laboratory Results - last 24 hr 04/30/19 15:18 Levetiracetam 42.6 Assessment & Plan Post-op Postoperative Procedures Operation Date: 04/26/19 17:45 Actual Procedures Side Surgeon p Exploratory Laparotomy, Lysis of Adhesions, Removal of Small bowel foreign body with primary closure, Fecal disempaction Stefan Rodriguez MD Postoperative day: 8 Postoperative status narrative: All things considered doing well. Tolerated extubation. Has begun having multiple bowel movements and was started on initially clear liquids which he did not like but then was given full liquids to see if he will take that better. Quality VTE Deep Vein Thrombosis/Pulmonary Embolism Present on Admission: No
--- NOTE | 2019-05-04 17:19 | P.OP.ENDO_ITS ---
Operative Date/Time/Diagnoses Date of procedure: 05/04/19 Time of procedure: 17:13 Pre-op diagnosis: Intestinal bleeding Post-op diagnosis: same (No upper GI source) Procedure & Clinicians Study performed: EGD with biopsy Same procedure as scheduled: Yes Indications: Determine source of GI bleeding Surgeon: Piyush Alvarez Procedure Notes SCOAP/Timeout: Performed Procedure in detail: Due to the patient's significant medical issues and concerned for aspiration he was brought to the endoscopy suite and underwent general endotracheal anesthesia to protect his airway. A bite block was inserted adjacent to the endotracheal tube and the scope was advanced through it into the esophagus. The esophagus was unremarkable. GE junction was noted at 40 cm from the incisors. The stomach insufflated well. There were no lesions seen in the body, antrum or at the incisura. The pyloric channel was patent. The duodenum was remarkable for a raised lesion with white punctate spots on it which I biopsied and is probably benign in nature. Additionally there was a submucosal soft mass consistent with a lipoma. The scope was brought back into the stomach and retroflexed. The proximal stomach normal in appearance except f or a hiatal hernia. The scope was straightened and brought out through the esophagus again. No lesions were seen. The scope was removed and the patient tolerated the procedure well. Scope withdrawal time: Not applicable Sedation minutes: 0 (General anesthetic) Specimen(s): other (Biopsies) Complications: none Recommendations: Other recommendation Plan for aftercare: Will probably require a colonoscopy Disposition: PACU
[2019-05-04 17:35] LABS: Clostridium Difficile Tox PCR Negative for C. diff
[2019-05-04] MEDS: TOPIRAMATE 100 MG TABLET PO (20:21)
[2019-05-04 20:34] VITALS: BP 104/68; PULSE 94; RESP 24; TEMP 36.8; O2SAT 93
[2019-05-04] MEDS: ONDANSETRON 4 MG/2 ML INJ IV (20:41)
--- NOTE | 2019-05-04 22:06 | SUR.OPER ---
2100- Patient vomited his po meds. Patient was not taking dinner well for family. MD notified of po intolerance. IV seizure meds restarted.
--- NOTE | 2019-05-04 22:29 | PC.NURSE ---
2200- Assessment reviewed and I agree with the charting.
[2019-05-04 23:50] VITALS: BP 122/66; PULSE 111; RESP 18; TEMP 37.1; O2SAT 92
--- NOTE | 2019-05-05 | DI.RAD.S_ITS ---
PROCEDURE: FL SMALL BOWEL FOLLOW THROUGH INDICATIONS: gastro SBFT COMPARISON: [facility], CR, XR KUB, 05/05/2019, 11:00. FINDINGS: KUB: Preprocedural blackjack pit boss film demonstrates a normal bowel gas pattern. No suspicious abdominal calcifications. Visualized solid organ contours appear normal. No suspicious bony abnormalities. Nasogastric tube is present. Small bowel: Contrast is identified within both the small and large bowel. Contrast is present through the colon to the descending colon. No contrast is identified in the rectum. There are scattered mildly dilated loops of small bowel, relatively unchanged. IMPRESSION: Persistent appearance of partial small bowel obstruction/ileus, relatively unchanged compared to prior exam. Dictated by: Anel Lombardo M.D. on 05/05/2019 at 20:51 Approved by: Anel Lombardo M.D. on 05/05/2019 at 21:01
[2019-05-05] MEDS: PIPERACILLIN-TAZO 3.375 GM/50 ML FROZ.PIGGY IV ×4 (00:49→17:52)
[2019-05-05 03:49] VITALS: BP 120/70; RESP 18; TEMP 37.2; O2SAT 98
[2019-05-05] MEDS: METOCLOPRAMIDE 10 MG/2 ML INJ 5 MG IV ×3 (05:39→17:52)
[2019-05-05] MEDS: [UNRECOGNIZED DRUG - OTHER] IV ×3 (05:39→21:31)
[2019-05-05] MEDS: FOSPHENYTOIN 100 MG IV ×3 (05:39→21:31)
--- NOTE | 2019-05-05 06:21 | PC.NURSE ---
Patient has dozed briefly, continues to be restless. Has had small amounts of brown/bile emesis, approximately 50-100mls twice. Receiving IV Reglan scheduled. Medicated with 0.5mg IV Dilaudid x1. Incontinent large amount of urine and moderate loose brown/green stool. HR 110-120 when agitated. Afebrile.
[2019-05-05 08:30] VITALS: BP 134/81; PULSE 94; RESP 22; TEMP 37.1; O2SAT 91
[2019-05-05] MEDS: MUPIROCIN 22 GM OINT 1 APPLIC TOP ×2 (08:44→20:07)
[2019-05-05] MEDS: ENOXAPARIN 40 MG/0.4 ML SYRINGE SUBCUT (08:44)
--- NOTE | 2019-05-05 10:19 | PC.NURSE ---
Addendum entered by Prisca Adan R.N. 05/05/19 13:18: pt with new orders for ngt placement and then what is a gastrograffin study at bedside - ngt placed and confirmed by xr then administration of 200ml of gastrograffin and clamp x 1 hour per md order-also crushed po rx ( that he vomited up) new orders for tpn/lipids recieved Original Note: pt initially was unwilling to take po rx as evidenced by him pressing lips/teeth together and turning away from staff- readdressed approx 45min-1 hour later and he was willing to take rx crushed finely in vanilla pudding - he had 2-3 swallows then coughed- gagged and had green- bile colored emesis approx 100ml- cleaned pt up and turned to side - he appears to be resting quietly now
--- NOTE | 2019-05-05 10:44 | DI.RAD.S_ITS ---
PROCEDURE: XR KUB INDICATIONS: increased emesis TECHNIQUE: One view of the abdomen acquired. COMPARISON: [facility], CT, CT ABDOMEN PELVIS W CON, 04/26/2019, 8:46. [facility], CR, XR ABDOMEN 1V, 04/25/2019, 23:06. FINDINGS: Surgical changes and devices: Ventral staple line is present. Bowel: Decreased, mild small bowel distention within the right hemiabdomen. Soft tissues: No suspicious abdominal calcifications. Visualized solid organ contours appear normal in size. Bones: No suspicious bony lesions. IMPRESSION: Decreased, mild small bowel distention consistent with decreased obstruction versus mild ileus. Dictated by: Diana Youssef M.D. on 05/05/2019 at 10:38 Approved by: Diana Youssef M.D. on 05/05/2019 at 10:39
[2019-05-05] MEDS: DEXTROSE 5%-NS W/KCL 20MEQ 1,000 ML 84 MEQ IV (11:06)
--- NOTE | 2019-05-05 11:39 | PT.IPTN ---
Current Diagnoses Unspecified intestinal obstruction, unspecified as to partial versus complete obstruction (04/26/19) Surgery Performed Operation Date: 04/26/19 17:45 Actual Procedures p Exploratory Laparotomy, Lysis of Adhesions, Removal of Small bowel foreign body with primary closure, Fecal disempaction - Stefan Rodriguez MD Physical Therapy Treatment Note M3 PT-IP Subjective Start: 05/05/19 11:37 Freq: NEEDED Status: Active Protocol: Document 05/05/19 11:37 AB (Rec: 05/05/19 11:39 AB [id number]) Subjective Physical Therapy Visit Type Notes checked with nurse and stated that family will be coming around later and will be a better to wait for family before seeing pt. pt is developmentally delayed and unable to verbalize needs. nurse also stated that pt just vomited a while ago. nurse will infrom PT when pt is around.
[2019-05-05] MEDS: HYDROMORPHONE 0.5 MG INJ IV (11:50)
--- NOTE | 2019-05-05 12:12 | DI.RAD.S_ITS ---
PROCEDURE: XR CHEST 1V INDICATIONS: verify NG tube placement TECHNIQUE: One view of the chest was acquired. COMPARISON: [facility], CR, XR CHEST 1V, 05/02/2019, 11:36. [facility], CR, XR CHEST 1V, 04/30/2019, 5:41. FINDINGS: Surgical changes and devices: Right arm PICC is present, tip of which is at the cavoatrial junction. NGT extends into the gastric antrum. Lungs and pleura: Decrease mild patchy right apical opacity. Decreased, mild left basilar patchy opacity. Decrease mild left upper lung opacity. No pleural effusions or pneumothorax. Mediastinum: Mediastinal contours appear normal. Heart size is normal. Bones and chest wall: No suspicious bony lesions. Overlying soft tissues appear unremarkable. No change in moderately distended small bowel loops. IMPRESSION: 1. Resolving multifocal pneumonia. 2. Tip of the NGT is in the gastric antrum. 3. No change in moderate small bowel obstruction. Dictated by: Diana Youssef M.D. on 05/05/2019 at 11:39 Approved by: Diana Youssef M.D. on 05/05/2019 at 11:41
[2019-05-05] MEDS: LORazepam 2 MG/ML INJ 1 MG IV (12:18)
[2019-05-05] MEDS: levETIRAcetam 1,000 MG in SODIUM CHLORIDE 0.9% 100 ML 440 ML IV (12:18)
--- NOTE | 2019-05-05 12:21 | P.PN_ITS ---
Exam Vital Signs (past 8 hours): - 05/05/19 08:30 Temperature 98.8 F Pulse Rate 94 H Respiratory Rate 22 Blood Pressure 134/81 Pulse Oximetry 91 Fraction of Inspired Oxygen 30 Oxygen Delivery Method Room Air Oxygen Flow Rate 0 Objective Labs Result Diagrams: 05/02/19 04:55 05/03/19 07:15 Labs: Laboratory Results - last 24 hr 04/30/19 05/04/19 15:18 15:00 Levetiracetam 42.6 C. difficile Tox (PCR) Negative for c. diff Assessment & Plan Assessment & Plan narrative: 34 yo man POD9 s/p exlap and MIGUEL with enterotomy and closure for SBO from ingested wetwipes bezor x3, with aspiration PNA and hypoxic respiratory failure. Now with emesis multiple times since NGT removed 2 days ago. KUB this am shows persistently dialated bowel. DDx prolonged ileus, early post op SBO, unidentified injestion of further material or upstream material already ingested at TI. Plan for gastrographin follow through. neuro -Continue IV keppra and fosphenytoin as PO route unreliable. Appears comfortably pulm- no issues, on RA CV - no issues, intermittent tachycardia not concerning GI - Re place NGT, to LWIS, then 200ml gastrographin in NGT and clamp for 1hr, o k to unclamp after 1hr. obtain KUB after contrast placement at 2hrs, 4hrs, 8hrs, 12hrs. Will watch contrast transit. - no issues Heme - enox dvt proph ID - on day 9 pip/benjie for asp pna, Nutrition - has not had meaningful nutrition for 9 days -start TPN, PICC already in place. TLD PICC, PIV Quality VTE Deep Vein Thrombosis/Pulmonary Embolism Present on Admission: No
[2019-05-05 12:29] VITALS: BP 117/76; PULSE 104; RESP 19; TEMP 37.3; O2SAT 93
[2019-05-05] MEDS: VIMPAT 150 MG 150 EACH PO ×2 (13:00→20:07)
[2019-05-05] MEDS: TOPIRAMATE 100 MG TABLET 200 MG PO (13:00)
[2019-05-05] MEDS: OXcarbazepine 150 MG TABLET 600 MG PO ×2 (13:01→20:07)
--- NOTE | 2019-05-05 14:53 | PT.IPTN ---
Current Diagnoses Unspecified intestinal obstruction, unspecified as to partial versus complete obstruction (04/26/19) Surgery Performed Operation Date: 04/26/19 17:45 Actual Procedures p Exploratory Laparotomy, Lysis of Adhesions, Removal of Small bowel foreign body with primary closure, Fecal disempaction - Stefan Rodriguez MD Physical Therapy Treatment Note M3 PT-IP Subjective Start: 05/05/19 11:37 Freq: NEEDED Status: Active Protocol: Document 05/05/19 14:52 AB (Rec: 05/05/19 14:53 AB [id number]) Subjective Physical Therapy Visit Type Notes per nurse, pt is not ready for PT at this time. will f/u.
[2019-05-05 15:42] VITALS: BP 140/91; PULSE 102; RESP 18; TEMP 36.6; O2SAT 95
[2019-05-05] MEDS: FAT EMULSIONS 50 GM/250 ML EMULSION IV (18:01)
[2019-05-05] MEDS: AA 5 %/CALCIUM/LYTES/DEXT 20 % 1,000 ML with MULTIVITAMIN 10 ML, TRACE ELEMENTS 1 ML 42.125 ML IV (18:01)
[2019-05-05 19:27] VITALS: BP 123/71; PULSE 106; RESP 22; TEMP 37.2; O2SAT 95
[2019-05-05] MEDS: TOPIRAMATE 100 MG TABLET PO (20:07)
[2019-05-06] VITALS: BP 114/68; PULSE 100; RESP 18; TEMP 37; O2SAT 93
[2019-05-06] MEDS: levETIRAcetam 1,000 MG in SODIUM CHLORIDE 0.9% 100 ML 440 ML IV ×2 (00:29→12:56)
[2019-05-06] MEDS: PIPERACILLIN-TAZO 3.375 GM/50 ML FROZ.PIGGY IV ×2 (00:29→05:28)
[2019-05-06] MEDS: DEXTROSE 5%-NS W/KCL 20MEQ 1,000 ML 84 MEQ IV (00:29)
[2019-05-06] MEDS: METOCLOPRAMIDE 10 MG/2 ML INJ 5 MG IV ×4 (00:30→17:24)
[2019-05-06] MEDS: LORazepam 2 MG/ML INJ 1 MG IV (03:23)
[2019-05-06 04:35] VITALS: BP 115/73; PULSE 94; RESP 24; TEMP 36.8; O2SAT 94
[2019-05-06] MEDS: [UNRECOGNIZED DRUG - OTHER] IV ×3 (05:28→21:22)
[2019-05-06] MEDS: FOSPHENYTOIN 100 MG IV ×3 (05:28→21:22)
--- NOTE | 2019-05-06 07:08 | PC.NURSE ---
NOC Shift: Pt POD SBO #10 w/new NG placenemt yesterday for continued nausea, emesis. Pt awake, continues to attempt to pull NG even with restraints. Mentally delayed. Ativan given x1 for comfort, sleep w/good affect. VSS. Loose stools of stopped.
[2019-05-06 07:49] VITALS: BP 117/66; PULSE 87; RESP 22; TEMP 37.7; O2SAT 94
[2019-05-06] MEDS: MUPIROCIN 22 GM OINT 1 APPLIC TOP ×2 (08:09→20:14)
[2019-05-06] MEDS: ENOXAPARIN 40 MG/0.4 ML SYRINGE SUBCUT (08:09)
[2019-05-06] MEDS: VIMPAT 150 MG 150 EACH PO ×2 (08:10→21:12)
[2019-05-06] MEDS: OXcarbazepine 150 MG TABLET 600 MG PO ×2 (08:10→21:12)
[2019-05-06] MEDS: TOPIRAMATE 100 MG TABLET 200 MG PO (08:10)
[2019-05-06] MEDS: OXYCODONE IR 5 MG TABLET PO (08:15)
--- NOTE | 2019-05-06 09:23 | PC.NURSE ---
Addendum entered by Prisca Adan R.N. 05/06/19 14:23: total assist of 2 staff members to assist pt back to bed- he had been incont of both bowel and bladder- cleansed/repostioned on left side and oral care given Addendum entered by Prisca Adan R.N. 05/06/19 13:07: withdrew ngt 14cm per md order following reading of kub xr - clamped for 1 hour after rx given- tolerating well thus far- PT assissted to wheelchair ( pt's own) and restraints remain in placed and checked frequently- currently npo and new tpn orders received by md Original Note: AM ASSESSMENT COMPLETE- PT MEDICATED WITH 5MG OXYCODONE WITH OTHER SEIZURE RX THAT REQUIRED CRUSHING AND ADMINISTERING VIA NGT- THEN CLAMPED X 1 HOUR- LARGE INCONTINENT EPISODE INCLUDING BOTH BOWEL AND BLADDER- BATHED AND TURNED TO LEFT SIDE- PT TOLERATED WELL
[2019-05-06 10:21] LABS: Hemoglobin 9.2 g/dL (13.5-17.5); Mean Corpuscular Hemoglobin 28.9 PG (26-34); Mean Corpuscular Volume 87.4 fL (80-100); Platelet Count 550 X10^3/uL (150-400); Red Cell Distribution Width 15.5 % (11.6-14.8); White Blood Cell Count 6.9 X10^3/uL (4.5-11.0)
[2019-05-06 10:23] LABS: Add Manual Diff / Slide Review YES
[2019-05-06 10:26] LABS: BUN Creatinine Ratio 6.7 (6-22); Blood Urea Nitrogen 6 mg/dL (9-20); Calcium 8.7 mg/dL (8.4-10.2); Carbon Dioxide 19 mmol/L (22-32); Chloride 115 mmol/L (98-107); Estimated Glomerular Filt Rate > 60.0 mL/min (>60); Glucose 119 mg/dL (70-100); HEMOLYSIS < 15 (0-50); Magnesium 1.9 mg/dL (1.6-2.3); Potassium 3.8 mmol/L (3.4-5.1); Sodium 142 mmol/L (137-145)
--- NOTE | 2019-05-06 10:45 | PT.IIE ---
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 pt's mom stated that they do everything for the pt. Prior Functional Level (Other details) called pt's mom to inquire regarding pt's PLOF as pt is non verbal. Social History Household Members family caregiver Living Arrangements House Number of Floors (Floors) One Floor Number of Stairs To Enter/Railing? w/c accessible Home Equipment Manual Wheelchair Additional Social History Comment pt has a caregiver that comes in for 8 hours/day mondays through saturdays; pt's mom assists pt when caregiver is not around M2 PT-IP Current Condition Start: 05/05/19 11:37 Freq: NEEDED Status: Active Protocol: Document 05/06/19 10:45 AB (Rec: 05/06/19 13:30 AB [id number]) Physical Therapy Current Condition Current Condition Evaluation Date 05/06/19 Treatment Diagnosis bowel obstruction s/p ex-lap; generalized weakness Onset Date 04/26/19 Precautions Abdominal Surgery Precautions Log Roll Lifting Restrictions Gait Belt above Incisional Area M3 PT-IP Subjective Start: 05/05/19 11:37 Freq: NEEDED Status: Active Protocol: Document 05/06/19 10:45 AB (Rec: 05/06/19 13:30 AB [id number]) Subjective Physical Therapy Visit Type Type Initial Evaluation Visit Start Time 10:45 Visit Stop Time 11:33 Total Visit Minutes 48 Number of GRADE CHECKER Visits 0 M4 PT-IP Mobility and Gait Start: 05/05/19 11:37 Freq: NEEDED Status: Active Protocol: Document 05/06/19 10:45 AB (Rec: 05/06/19 13:30 AB [id number]) PT-Transfer Assessment Equipment Transfer Assistive Device Gait Belt Orthotic/Prosthetic Devices or Brace: No Transfers Transfer Destination Wheelchair Transfer Technique Squat Pivot Transfer Ability Level of Assist 2 Person Assistance Comments Mobility Comments pt completed supine to sit total A x 2. pt required max A x 2 to maintain sitting on EOB. required total A x 2 -3 for bed to w/c transfer partial stand pivot . pt unable to follow directions Gait Assessment Comments Gait Comments unable PT-Balance Assessment Sitting Balance and Reactions Static Sitting Balance Ability Poor Dynamic Sitting Balance Ability Poor Standing Balance and Reactions Static Standing Balance Ability Poor Dynamic Standing Balance Ability Poor M5 PT-IP Objective Assessments Start: 05/05/19 11:37 Freq: NEEDED Status: Active Protocol: Document 05/06/19 10:45 AB (Rec: 05/06/19 13:30 AB [id number]) Orientation Orientation/Cognition Level of Alertness Alert Comments pt is non verbal Gross Range of Motion Lower Extremity ROM Assessment Within Functional Limits Strength Comments Strength Comments unable to do MMT due to pt inability to follow directions M6 PT-IP Treatment Start: 05/05/19 11:37 Freq: NEEDED Status: Active Protocol: Document 05/06/19 10:45 AB (Rec: 05/06/19 13:30 AB [id number]) Physical Therapy Treatment Other Treatments Other Treatment Performed transferred pt into his w/c. w/c positioning completed. M7 PT-IP Assessment and Plan Start: 05/05/19 11:37 Freq: NEEDED Status: Active Protocol: Document 05/06/19 10:45 AB (Rec: 05/06/19 13:30 AB [id number]) PT Summary Assessment and Plan Potential Rehabilitation Potential Fair Status of Condition at Evaluation Evolving Summary Impairments Balance Cognition Bed Mobility Transfers Gait Activity Tolerance Assessment Summary pt requiring total A x 2-3 with all mobilities and unable to follow directions. d/c plan depending on progress and if his caregivers will be able to assist him at home. PT to work on increase activity tolerance, sitting balance/tolerance, bed mobiltiy and transfers. will have to continue assessing pt' s progress. Goals Bed Mobility Goal Maximal Assistance Transfer Goal Maximal Assistance Days to Meet Goals 10 Frequency of Treatment Frequency Of Treatment Once a Day Treatment Plan Physical Therapy Treatment Plan Bed Mobility Training Transfer Training Therapeutic Exercise Balance Retraining Discharge Planning Neuromuscular Re-ed Coordination Retraining Manual Therapy Other Recommendations and Next Treatment sitting balance/tolerance, bed Focus mobility, transfers Recommendations To Nursing Amount of Assist Needed 3 or More Person Assist Total Assistance Discharge Recommendations PT Discharge Recommendations Home with 06/06 Assist Home Health
[2019-05-06 10:46] LABS: Neutrophils Absolute Manual 4830 /uL (3000-5900); RBC Morphology Normal Morphology; Total Cells Counted 100
[2019-05-06] MEDS: POTASSIUM CHLORIDE 20 MEQ/15 ML UDC PO (11:00)
[2019-05-06 11:07] LABS: Phosphorous 3.1 mg/dL (2.5-4.5)
[2019-05-06 12:50] VITALS: BP 131/78; PULSE 89; RESP 18; TEMP 36.7; O2SAT 97
--- NOTE | 2019-05-06 12:52 | P.PN_ITS ---
Subjective Date Patient Seen: 05/06/19 Time Patient Seen: 09:00 Interval history: Interval history: Significant nausea vomiting yesterday, NG tube replaced, Gastrografin follow- through study performed demonstrating rapid transit of contrast through small bowel into colon within 4 hours of contrast administration. Large volume stool subsequently. NG tube output has been significant-including nearly 800 overnight, light bilious. Review of x-rays this morning shows tip of NG tube likely through pylorus well into duodenum. Otherwise well with near normal vital signs Exam Vital Signs (past 8 hours): - 05/06/19 07:49 Temperature 99.9 F H Pulse Rate 87 Respiratory Rate 22 Blood Pressure 117/66 Pulse Oximetry 94 Fraction of Inspired Oxygen 30 Oxygen Delivery Method Room Air Oxygen Flow Rate 0 Narrative Exam Narrative: Non verbal Breathing comfortably on room air Mild irregular tachycardia Abdomen soft mildly distended apparently nontender, wound clean dry and intact Periphery warm Objective Labs Result Diagrams: 05/06/19 10:10 05/06/19 10:10 Labs: Laboratory Results - last 24 hr 05/06/19 05/06/19 05/06/19 10:10 10:10 10:10 WBC 6.9 RBC 3.20 L Hgb 9.2 L Hct 28.0 L MCV 87.4 MCH 28.9 MCHC 33.0 RDW 15.5 H Plt Count 550 H Neut % (Auto) Not Reportable Lymph % (Auto) Not Reportable Gibson % (Auto) Not Reportable Eos % (Auto) Not Reportable Baso % (Auto) Not Reportable Lymph # (Auto) Not Reportable Gibson # (Auto) Not Reportable Baso # (Auto) Not Reportable Total Counted 100 Seg Neutrophils % 64.0 Band Neutrophils % 6.0 Lymphocytes % (Manual) 16.0 L Monocytes % (Manual) 9.0 Eosinophils % (Manual) 1.0 L Basophils % (Manual) 3.0 H Metamyelocytes % 1.0 H Neutrophils # (Manual) 4830 RBC Morphology Normal morphology Sodium 142 Potassium 3.8 Chloride 115 H Carbon Dioxide 19 L BUN 6 L Creatinine 0.90 Estimated GFR > 60.0 BUN/Creatinine Ratio 6.7 Glucose 119 H Calcium 8.7 Phosphorus Magnesium 1.9 05/06/19 10:10 WBC RBC Hgb Hct MCV MCH MCHC RDW Plt Count Neut % (Auto) Lymph % (Auto) Gibson % (Auto) Eos % (Auto) Baso % (Auto) Lymph # (Auto) Gibson # (Auto) Baso # (Auto) Total Counted Seg Neutrophils % Band Neutrophils % Lymphocytes % (Manual) Monocytes % (Manual) Eosinophils % (Manual) Basophils % (Manual) Metamyelocytes % Neutrophils # (Manual) RBC Morphology Sodium Potassium Chloride Carbon Dioxide BUN Creatinine Estimated GFR BUN/Creatinine Ratio Glucose Calcium Phosphorus 3.1 Magnesium Assessment & Plan Assessment & Plan narrative: 34 yo man POD10 s/p exlap and MIGUEL with enterotomy and closure for SBO from ingested wetwipes bezor x3, with aspiration PNA and hypoxic respiratory failure. Now with emesis multiple times since NGT removed, now with repeat NG tube with significant output. However contrast study performed yesterday shows no mechanical obstructive -this is a functional issue. Will likely resolve with time neuro -Continue IV keppra and fosphenytoin as PO route unreliable. Appears comfortably pulm- no issues, on RA CV - no issues, intermittent tachycardia not concerning GI -back out NGT into stomach, to LWIS, contrast confirms absence of mechanical obstruction - no issues Heme - enox dvt proph ID - on day 08/23 pip/benjie for asp pna, will DC Nutrition -continue TPN, PICC already in place. Checking phos for potential re feeding syndrome Quality VTE Deep Vein Thrombosis/Pulmonary Embolism Present on Admission: No
[2019-05-06 17:23] VITALS: BP 121/77; PULSE 96; RESP 26; TEMP 36.9; O2SAT 97
[2019-05-06] MEDS: FAT EMULSIONS 50 GM/250 ML EMULSION IV (18:20)
[2019-05-06] MEDS: AA 5 %/CALCIUM/LYTES/DEXT 20 % 1,500 ML with MULTIVITAMIN 10 ML, TRACE ELEMENTS 1 ML 62.958 ML IV (18:21)
[2019-05-06 20:27] VITALS: BP 129/58; PULSE 100; RESP 22; TEMP 36.6; O2SAT 96
[2019-05-06] MEDS: TOPIRAMATE 100 MG TABLET PO (21:12)
[2019-05-07 00:03] VITALS: BP 120/74; PULSE 96; RESP 20; TEMP 36; O2SAT 95
[2019-05-07] MEDS: levETIRAcetam 1,000 MG in SODIUM CHLORIDE 0.9% 100 ML 440 ML IV ×2 (00:17→11:54)
[2019-05-07] MEDS: METOCLOPRAMIDE 10 MG/2 ML INJ 5 MG IV ×4 (00:17→17:48)
[2019-05-07] MEDS: OXYCODONE IR 5 MG TABLET PO (01:50)
[2019-05-07] MEDS: DEXTROSE 5%-NS W/KCL 20MEQ 1,000 ML 21 MEQ IV (04:07)
[2019-05-07 04:45] VITALS: BP 116/65; PULSE 100; RESP 18; TEMP 36.8; O2SAT 94
[2019-05-07 05:13] LABS: BUN Creatinine Ratio 12.9 (6-22); Blood Urea Nitrogen 9 mg/dL (9-20); Calcium 8.8 mg/dL (8.4-10.2); Carbon Dioxide 17 mmol/L (22-32); Chloride 111 mmol/L (98-107); Estimated Glomerular Filt Rate > 60.0 mL/min (>60); Glucose 126 mg/dL (70-100); HEMOLYSIS < 15 (0-50); Magnesium 1.8 mg/dL (1.6-2.3); Potassium 3.8 mmol/L (3.4-5.1); Sodium 138 mmol/L (137-145)
[2019-05-07] MEDS: FOSPHENYTOIN 100 MG IV ×3 (06:07→21:36)
[2019-05-07] MEDS: [UNRECOGNIZED DRUG - OTHER] IV ×3 (06:07→21:36)
[2019-05-07 08:00] VITALS: BP 113/72; PULSE 94; RESP 16; TEMP 36.6; O2SAT 96
--- NOTE | 2019-05-07 08:10 | CM.DPC ---
DCP: continued: case again received and EMR for last few days is reviewed. See that NGT had to be replaced and pt is now on TPN. Will plan to send clinical update to ALINA Busch: fx [phone] and follow for d/c issues and options as POC unfolds. P: at this point remains home with family and caregiver support but will be followed closely. Will offer support and advocacy to pt's mother Dottie in whatever way is comfortable for her.
[2019-05-07] MEDS: ENOXAPARIN 40 MG/0.4 ML SYRINGE SUBCUT (08:24)
[2019-05-07] MEDS: OXcarbazepine 150 MG TABLET 600 MG PO (08:24)
[2019-05-07] MEDS: VIMPAT 150 MG 150 EACH PO (08:24)
[2019-05-07] MEDS: TOPIRAMATE 100 MG TABLET 200 MG PO (08:26)
[2019-05-07] MEDS: MUPIROCIN 22 GM OINT 1 APPLIC TOP ×2 (08:28→20:54)
[2019-05-07] MEDS: POTASSIUM CHLORIDE 20 MEQ/15 ML UDC 40 MEQ PO (08:39)
[2019-05-07] MEDS: MAGNESIUM SULFATE 2 GM/50 ML PIGGYBACK IV (08:39)
--- NOTE | 2019-05-07 10:34 | PC.NURSE ---
Addendum entered by Prisca Adan R.N. 05/07/19 14:28: pt tolerated approx 100-120 cc of clear liquids befoe pinching lips closed and turning away- update to mother via telephone call Original Note: pt tolerated am rx via ngt and then waited approx 45- 60 minutes prior to removing ngt ( per md order) also removed bilat wrist restraints at that time- oral care given and turned q 2h
--- NOTE | 2019-05-07 12:41 | DIET.PN ---
ht: 162.5cm wt: 52.6kg BMI: 19.9 Assessment: Pt did not tolerate clears (emesis), surgeon started TPN on 05/05- pt now receiving 1500mL Cinimax plus 250mL 20% lipids in total providing 2,030kcal, and 63g PRO/d. Pt wt still dropping, down 2.7kg since 04/27 c BMI 19.9. TPN not indicated to promote weight gain, only wt maintenance. Diagnosis: Inadequate Protein energy consumption r/t GI surgery and vent aeb no nourishments for 6 d, nausea and emesis 24h prior to admission. Intervention: Continue TPN and add Clears as tolerated. Advance diet and intake amount as tolerated as refeeding is possible d/t length of time NPO. Monitoring/Evaluation: RD f/u daily until PO intake stable. Continue Ensure Clear w/ room temp meals. Consider ONS once refeeding no longer concern.
--- NOTE | 2019-05-07 12:44 | P.PN_ITS ---
Subjective Date Patient Seen: 05/07/19 Time Patient Seen: 09:00 Interval history: Comfortably NG tube output fairly minimal on last 18 hours No seizure activity Exam Vital Signs (past 8 hours): - 05/07/19 04:45 05/07/19 08:00 Temperature 98.2 F 97.8 F Pulse Rate 100 H 94 H Respiratory Rate 18 16 Blood Pressure 116/65 113/72 Pulse Oximetry 94 96 Fraction of Inspired Oxygen 30 Oxygen Delivery Method Room Air Oxygen Flow Rate 0 Narrative Exam Narrative: Comfortable Breathing easily on room Abdomen soft nontender nondistended Periphery warm well perfused Objective Labs Result Diagrams: 05/06/19 10:10 05/07/19 04:45 Labs: Laboratory Results - last 24 hr 05/07/19 04:45 Sodium 138 Potassium 3.8 Chloride 111 H Carbon Dioxide 17 L BUN 9 Creatinine 0.70 Estimated GFR > 60.0 BUN/Creatinine Ratio 12.9 Glucose 126 H Calcium 8.8 Phosphorus 3.0 Magnesium 1.8 Assessment & Plan Assessment & Plan narrative: 34 yo man POD11 s/p exlap and MIGUEL with enterotomy and closure for SBO from ingested wetwipes bezor x3, with aspiration PNA and hypoxic respiratory failure. NGT had been removed but pt with multiple emesis - re inserted Sat and started on TPN. Has since had contrast study confirming bowel patency. NGT output has again fallen with under 150 in last 18hrs. Plan to remove NGT and trial clear liquid diet neuro -Continue IV keppra and fosphenytoin as PO route unreliable. if able to take all meds today will d/c IV meds tomorrow pulm- no issues, on RA, after 10 day course of pip/benjie abx stopped yesterday for asp pna CV - no issues, intermittent tachycardia not concerning GI -NGT out, clears - no issues Heme - enox dvt proph Nutrition -continue TPN, PICC already in place. normal phos - vigilent for potential re feeding syndrome Quality VTE Deep Vein Thrombosis/Pulmonary Embolism Present on Admission: No
[2019-05-07] MEDS: SODIUM CHLORIDE 0.9% 1,000 ML 25 ML IV (13:15)
--- NOTE | 2019-05-07 14:37 | PT.IPTN ---
Current Diagnoses Unspecified intestinal obstruction, unspecified as to partial versus complete obstruction (04/26/19) Surgery Performed Operation Date: 04/26/19 17:45 Actual Procedures p Exploratory Laparotomy, Lysis of Adhesions, Removal of Small bowel foreign body with primary closure, Fecal disempaction - Stefan Rodriguez MD Physical Therapy Treatment Note M2 PT-IP Current Condition Start: 05/05/19 11:37 Freq: NEEDED Status: Active Protocol: Document 05/06/19 10:45 AB (Rec: 05/06/19 13:30 AB [id number]) Physical Therapy Current Condition Current Condition Evaluation Date 05/06/19 Treatment Diagnosis bowel obstruction s/p ex-lap; generalized weakness Onset Date 04/26/19 Precautions Abdominal Surgery Precautions Log Roll Lifting Restrictions Gait Belt above Incisional Area M3 PT-IP Subjective Start: 05/05/19 11:37 Freq: NEEDED Status: Active Protocol: Document 05/07/19 14:27 RS (Rec: 05/07/19 14:37 RS [id number]) Subjective Physical Therapy Visit Type Type Treatment Note M4 PT-IP Mobility and Gait Start: 05/05/19 11:37 Freq: NEEDED Status: Active Protocol: Document 05/07/19 14:27 RS (Rec: 05/07/19 14:37 RS [id number]) PT-Bed Mobility Assessment Supine to Sit Supine to Sit Total Assistance Sit to Supine Sit to Supine Total Assistance Scooting Scooting to Edge of Bed Dependent Scooting Up and Down in Bed Dependent M5 PT-IP Objective Assessments Start: 05/05/19 11:37 Freq: NEEDED Status: Active Protocol: Document 05/06/19 10:45 AB (Rec: 05/06/19 13:30 AB [id number]) Orientation Orientation/Cognition Level of Alertness Alert Comments pt is non verbal Gross Range of Motion Lower Extremity ROM Assessment Within Functional Limits Strength Comments Strength Comments unable to do MMT due to pt inability to follow directions M6 PT-IP Treatment Start: 05/05/19 11:37 Freq: NEEDED Status: Active Protocol: Document 05/06/19 10:45 AB (Rec: 05/06/19 13:30 AB [id number]) Physical Therapy Treatment Other Treatments Other Treatment Performed transferred pt into his w/c. w/c positioning completed. M7 PT-IP Assessment and Plan Start: 05/05/19 11:37 Freq: NEEDED Status: Active Protocol: Document 05/07/19 14:27 RS (Rec: 05/07/19 14:37 RS [id number]) PT Summary Assessment and Plan Summary Assessment Summary The greatest determining factor in patient's dispo plan is whether pt's caregiver and /or family can provide current level of assist at home. It would be benefical for pt's caregiver to be present during an upcoming PT session. Pt's caregiver will likely be able to assist the patient more easily than staff is capable of as pt's caregiver has been with him for a long time. Will attempt to arrange w/ RN and/ or CM.
[2019-05-07 15:36] VITALS: BP 122/75; PULSE 95; RESP 18; TEMP 36.6; O2SAT 95
--- NOTE | 2019-05-07 17:21 | PC.NURSE ---
Addendum entered by Rachel Valentine R.N. 05/07/19 23:00: 2200 - Dr. Humphreys notified of 2nd emesis. reviewed I and O, Medication and also discussed persistent teeth grinding. Continue to monitor. Addendum entered by Rachel Valentine R.N. 05/07/19 21:31: 2100 - Pt set up for HS meds, however prior to taking meds, pt began to gag and had 100cc of bile color emesis. Ativan given for nausea. No HS PO meds given. Monitor. Addendum entered by Rachel Valentine R.N. 05/07/19 19:34: 1915 - Pt sitting up in bed, slumping forward, pt coughing, gagging. Pt then had 250cc of green emesis, with an additional unmeasured amount on linen. Oral care with some oral suctioning for thick secretions. Zofran given. Dr. Humphreys notified of emesis. Order to return diet to clear liquids and monitor. Call with further emesis. 1800 - MD in to check on pt. Reported to MD no emesis and also displaying no real interest in eating the clear liquids. Verbal order to advance to full liquids. Pt offered full liquids however refused even a taste of food. Clamping mouth closed and turning head away. Continues grind teeth. Original Note: 1715 - Pt set up for evening meal. Pt took a couple of bites of jello before turning head away and declining further efforts to be fed. TPN infusing. Seizure pads in place. Bed alarm on.
[2019-05-07] MEDS: FAT EMULSIONS 50 GM/250 ML EMULSION IV (17:48)
[2019-05-07] MEDS: AA 5 %/CALCIUM/LYTES/DEXT 20 % 1,500 ML with MULTIVITAMIN 10 ML, TRACE ELEMENTS 1 ML, P... 63.792 ML IV (17:48)
[2019-05-07] MEDS: ONDANSETRON 4 MG/2 ML INJ IV (19:18)
[2019-05-07 19:50] VITALS: BP 129/71; PULSE 101; RESP 18; TEMP 37.1
[2019-05-07] MEDS: LORazepam 2 MG/ML INJ 1 MG IV (21:07)
[2019-05-07 23:33] VITALS: BP 111/75; PULSE 110; RESP 20; TEMP 36.3; O2SAT 99
[2019-05-08] MEDS: METOCLOPRAMIDE 10 MG/2 ML INJ 5 MG IV ×4 (00:54→18:53)
[2019-05-08] MEDS: levETIRAcetam 1,000 MG in SODIUM CHLORIDE 0.9% 100 ML 440 ML IV ×2 (00:54→12:57)
[2019-05-08] MEDS: LORazepam 2 MG/ML INJ 1 MG IV ×2 (02:09→19:48)
[2019-05-08 04:00] VITALS: BP 115/64; PULSE 115; RESP 24; TEMP 36.7; O2SAT 96
[2019-05-08] MEDS: [UNRECOGNIZED DRUG - OTHER] IV ×3 (05:31→22:25)
[2019-05-08] MEDS: FOSPHENYTOIN 100 MG IV ×3 (05:31→22:25)
--- NOTE | 2019-05-08 07:28 | PC.NURSE ---
Patient has 100ml bile emesis measured and 1 to 2 other small to moderate unmeasured emesis. Incontinent 2 loose stools. TPN and lipids infused. 1mg IV Ativan given at 0200 for restlessness and agitation. Afebrile, HRR 110-120, RR 20s, SpO2 >94%, BP stable, see vital trends.
[2019-05-08 07:59] VITALS: BP 104/53; PULSE 104; RESP 18; TEMP 37.6; O2SAT 95
[2019-05-08] MEDS: ENOXAPARIN 40 MG/0.4 ML SYRINGE SUBCUT (08:49)
[2019-05-08] MEDS: MUPIROCIN 22 GM OINT 1 APPLIC TOP (08:50)
--- NOTE | 2019-05-08 14:34 | PT.IPTN ---
Current Diagnoses Unspecified intestinal obstruction, unspecified as to partial versus complete obstruction (04/26/19) Surgery Performed Operation Date: 04/26/19 17:45 Actual Procedures p Exploratory Laparotomy, Lysis of Adhesions, Removal of Small bowel foreign body with primary closure, Fecal disempaction - Stefan Rodriguez MD Physical Therapy Treatment Note M2 PT-IP Current Condition Start: 05/05/19 11:37 Freq: NEEDED Status: Active Protocol: Document 05/06/19 10:45 AB (Rec: 05/06/19 13:30 AB [id number]) Physical Therapy Current Condition Current Condition Evaluation Date 05/06/19 Treatment Diagnosis bowel obstruction s/p ex-lap; generalized weakness Onset Date 04/26/19 Precautions Abdominal Surgery Precautions Log Roll Lifting Restrictions Gait Belt above Incisional Area M3 PT-IP Subjective Start: 05/05/19 11:37 Freq: NEEDED Status: Active Protocol: Document 05/08/19 14:30 LR (Rec: 05/08/19 14:33 [facility] [id number]) Subjective Physical Therapy Visit Type Type Treatment Note Visit Start Time 13:15 Visit Stop Time 13:38 Total Visit Minutes 23 Number of QUANTITATIVE SOFTWARE ENGINEER Visits 0 M4 PT-IP Mobility and Gait Start: 05/05/19 11:37 Freq: NEEDED Status: Active Protocol: Document 05/08/19 14:30 LR (Rec: 05/08/19 14:33 [facility] [id number]) PT-Bed Mobility Assessment Supine to Sit Supine to Sit Moderate Assistance Sit to Supine Sit to Supine Moderate Assistance Scooting Scooting to Edge of Bed Moderate Assistance PT-Transfer Assessment Equipment Transfer Assistive Device Gait Belt Orthotic/Prosthetic Devices or Brace: No Transfers Transfer Destination Wheelchair Transfer Technique Squat Pivot Transfer Ability Level of Assist 2 Person Assistance Comments Mobility Comments pt completed supine to sit mod Ax 2. pt required mod A to max A to maintain sitting on EOB. mod A x2 for transfer to chair when given 1 hand hold and instructed to stand M5 PT-IP Objective Assessments Start: 05/05/19 11:37 Freq: NEEDED Status: Active Protocol: Document 05/06/19 10:45 AB (Rec: 05/06/19 13:30 AB [id number]) Orientation Orientation/Cognition Level of Alertness Alert Comments pt is non verbal Gross Range of Motion Lower Extremity ROM Assessment Within Functional Limits Strength Comments Strength Comments unable to do MMT due to pt inability to follow directions M6 PT-IP Treatment Start: 05/05/19 11:37 Freq: NEEDED Status: Active Protocol: Document 05/08/19 14:30 [facility] (Rec: 05/08/19 14:33 [facility] [id number]) Physical Therapy Treatment Other Treatments Other Treatment Performed transferred pt into his w/c. w/c positioning completed. M7 PT-IP Assessment and Plan Start: 05/05/19 11:37 Freq: NEEDED Status: Active Protocol: Document 05/08/19 14:30 [facility] (Rec: 05/08/19 14:33 [facility] [id number]) PT Summary Assessment and Plan Summary Assessment Summary Pt was able to transfer today with mod A x2 when given a hand and instructed to stand. He followed the command to stand and to sit up once his LE were off the edge of the bed. He showed good imrpvoement in mobility today. Goals Bed Mobility Goal Maximal Assistance Transfer Goal Maximal Assistance Days to Meet Goals 10 Frequency of Treatment Frequency Of Treatment Once a Day Treatment Plan Physical Therapy Treatment Plan Bed Mobility Training Transfer Training Therapeutic Exercise Balance Retraining Discharge Planning Neuromuscular Re-ed Coordination Retraining Manual Therapy Other Recommendations and Next Treatment sitting balance/tolerance, bed Focus mobility, transfers Recommendations To Nursing Amount of Assist Needed 2 Person Assist Discharge Recommendations PT Discharge Recommendations Home with 06/06 Assist Home Health
[2019-05-08 15:54] VITALS: BP 105/67; PULSE 87; RESP 16; TEMP 36.8; O2SAT 95
--- NOTE | 2019-05-08 17:13 | PC.NURSE ---
Addendum entered by Rachel Valentine R.N. 05/08/19 20:58: 2100 - Pt one to one care at this time. Repeated attempt to bite at linen and gown, continues with teeth grinding. Refusing offers at appropriate PO intake. Coordinator aware. Addendum entered by Rachel Valentine R.N. 05/08/19 19:52: 1930 - Pt immediately pulled apart replaced brief, attempting to put parts into his mouth. Brief removed. Pt then grabbing and pulling with force on his own penis, when hands removed, pt then began picking at abd rafael. Pt agitated and grimacing. Randolph placed around elda-area and tucked gown to protect incision. Call placed to coordinator discussing care options, Call placed to Dr. Alvarez notified of pt repeated attempt to eat care items. Ativan given. MD order placement of abd binder to protect incision. Discuss possibility of protective mitts, coordinator checking on availability. MD unsure that pt would not be able to eat/chew on portions of the mitt. Close monitor continues. Addendum entered by Rachel Valentine R.N. 05/08/19 19:21: 1920 - Witness pt put item in mouth. Immediate entry into room. Able to get a small amount of cotton out of pt mouth. Pt had torn a small hole in his incontinent brief, removed some of the filling. Brief changed. Linen check for residual material. Close monitor. Addendum entered by Rachel Valentine R.N. 05/08/19 18:58: 1830 - Pt continues to refuse PO intake. Moves head away from spoon. Offered soup, and ensure. BT present. 2 person assist back to bed. Brief changed. Seizure pads in place. Original Note: 1630 - Dr. Rodriguez in to see pt. Pt sitting up in WC. Reaching for items on counter. Chair moved away from reachable item due to potential for pt to put into his mouth. Reviewed need for TPN order renewal. Notified MD that pt is refusing PO intake and that dayshift RN reports attempt to reach family by phone to discuss diet preferences, however they were unable to reach anyone. No emesis. Monitor.
[2019-05-08] MEDS: AA 5 %/CALCIUM/LYTES/DEXT 20 % 1,500 ML with MULTIVITAMIN 10 ML, TRACE ELEMENTS 1 ML, P... 63.792 ML IV (17:51)
[2019-05-08] MEDS: FAT EMULSIONS 50 GM/250 ML EMULSION IV (17:56)
[2019-05-08 23:00] VITALS: BP 116/69; PULSE 95; RESP 18; TEMP 37.2; O2SAT 91
[2019-05-09] MEDS: levETIRAcetam 1,000 MG in SODIUM CHLORIDE 0.9% 100 ML 440 ML IV ×2 (00:19→12:01)
[2019-05-09] MEDS: METOCLOPRAMIDE 10 MG/2 ML INJ 5 MG IV ×4 (00:20→17:58)
[2019-05-09] MEDS: LORazepam 2 MG/ML INJ 1 MG IV (03:23)
[2019-05-09] MEDS: SODIUM CHLORIDE 0.9% 1,000 ML 25 ML IV (03:30)
[2019-05-09] MEDS: FOSPHENYTOIN 100 MG IV ×2 (05:39→14:04)
[2019-05-09] MEDS: [UNRECOGNIZED DRUG - OTHER] IV ×2 (05:39→14:04)
--- NOTE | 2019-05-09 06:50 | PC.NURSE ---
Patient has been mildly agitated, still attempts to put objects in mouth, chews on blankets, pillows, and gown. Pulls at IV tubing and wrap occasionally, but is not picking at rafael to midline incision on abdomen. 1:1 observation by BABY FORMULA MIXER. Did take several bites of chocolate pudding without nausea or vomiting.
[2019-05-09 07:00] VITALS: BP 115/64; PULSE 91; RESP 14; TEMP 37.1; O2SAT 97
[2019-05-09] MEDS: ENOXAPARIN 40 MG/0.4 ML SYRINGE SUBCUT (10:49)
[2019-05-09] MEDS: MUPIROCIN 22 GM OINT 1 APPLIC TOP ×2 (10:49→20:52)
[2019-05-09] MEDS: TOPIRAMATE 100 MG TABLET 200 MG PO (10:50)
[2019-05-09] MEDS: OXcarbazepine 150 MG TABLET 600 MG PO ×2 (10:50→19:04)
[2019-05-09] MEDS: VIMPAT 150 MG 150 EACH PO ×2 (10:53→19:04)
--- NOTE | 2019-05-09 13:34 | CM.DPC ---
DCP Cont: Checked in with patient's nurse, Bryson, in ICU, regarding patient's status. Patient sleeping, no family at bedside. According to nurse and notes, patient has been attempting to put various objects in his mouth. They have been offering some food, but he has been refusing. They have been attempting to reach family, to inquire what types of foods that patient likes. He is continuing on TPN, no NG tube at this time. P: DCP to continue to follow, and support family for any resources that may be needed. Allison Lizama, ALBERT/Criminal Lawyer
--- NOTE | 2019-05-09 14:04 | PC.NURSE ---
Day Shift Note Pt continues to intermittently grind teeth and chew on gown, blanket, and toys. Minimal PO intake but did take a couple bites of chocolate pudding with AM meds. Copious and far-reaching incontinent loose stool/void. Brief placed - pt has not attempted to pick or eat at this time but continues with 1:1 observation. Spoke with pt's mother over the phone, stated she would be in later this afternoon. Bed alarm on, seizure pads in place.
--- NOTE | 2019-05-09 14:17 | PT.IPTN ---
Current Diagnoses Unspecified intestinal obstruction, unspecified as to partial versus complete obstruction (04/26/19) Surgery Performed Operation Date: 04/26/19 17:45 Actual Procedures p Exploratory Laparotomy, Lysis of Adhesions, Removal of Small bowel foreign body with primary closure, Fecal disempaction - Stefan Rodriguez MD Physical Therapy Treatment Note M2 PT-IP Current Condition Start: 05/05/19 11:37 Freq: NEEDED Status: Active Protocol: Document 05/06/19 10:45 AB (Rec: 05/06/19 13:30 AB [id number]) Physical Therapy Current Condition Current Condition Evaluation Date 05/06/19 Treatment Diagnosis bowel obstruction s/p ex-lap; generalized weakness Onset Date 04/26/19 Precautions Abdominal Surgery Precautions Log Roll Lifting Restrictions Gait Belt above Incisional Area M3 PT-IP Subjective Start: 05/05/19 11:37 Freq: NEEDED Status: Active Protocol: Document 05/09/19 14:16 LJ (Rec: 05/09/19 14:16 LJ [id number]) Subjective Physical Therapy Visit Type Type Patient Unavailable Notes Nursing just finished moving pt after large BM. They would like him to rest for a while. M4 PT-IP Mobility and Gait Start: 05/05/19 11:37 Freq: NEEDED Status: Active Protocol: Document 05/08/19 14:30 [facility] (Rec: 05/08/19 14:33 [facility] [id number]) PT-Bed Mobility Assessment Supine to Sit Supine to Sit Moderate Assistance Sit to Supine Sit to Supine Moderate Assistance Scooting Scooting to Edge of Bed Moderate Assistance PT-Transfer Assessment Equipment Transfer Assistive Device Gait Belt Orthotic/Prosthetic Devices or Brace: No Transfers Transfer Destination Wheelchair Transfer Technique Squat Pivot Transfer Ability Level of Assist 2 Person Assistance Comments Mobility Comments pt completed supine to sit mod Ax 2. pt required mod A to max A to maintain sitting on EOB. mod A x2 for transfer to chair when given 1 hand hold and instructed to stand M5 PT-IP Objective Assessments Start: 05/05/19 11:37 Freq: NEEDED Status: Active Protocol: Document 05/06/19 10:45 AB (Rec: 05/06/19 13:30 AB [id number]) Orientation Orientation/Cognition Level of Alertness Alert Comments pt is non verbal Gross Range of Motion Lower Extremity ROM Assessment Within Functional Limits Strength Comments Strength Comments unable to do MMT due to pt inability to follow directions M6 PT-IP Treatment Start: 05/05/19 11:37 Freq: NEEDED Status: Active Protocol: Document 05/08/19 14:30 [facility] (Rec: 05/08/19 14:33 [facility] [id number]) Physical Therapy Treatment Other Treatments Other Treatment Performed transferred pt into his w/c. w/c positioning completed. M7 PT-IP Assessment and Plan Start: 05/05/19 11:37 Freq: NEEDED Status: Active Protocol: Document 05/08/19 14:30 [facility] (Rec: 05/08/19 14:33 [facility] [id number]) PT Summary Assessment and Plan Summary Assessment Summary Pt was able to transfer today with mod A x2 when given a hand and instructed to stand. He followed the command to stand and to sit up once his LE were off the edge of the bed. He showed good imrpvoement in mobility today. Goals Bed Mobility Goal Maximal Assistance Transfer Goal Maximal Assistance Days to Meet Goals 10 Frequency of Treatment Frequency Of Treatment Once a Day Treatment Plan Physical Therapy Treatment Plan Bed Mobility Training Transfer Training Therapeutic Exercise Balance Retraining Discharge Planning Neuromuscular Re-ed Coordination Retraining Manual Therapy Other Recommendations and Next Treatment sitting balance/tolerance, bed Focus mobility, transfers Recommendations To Nursing Amount of Assist Needed 2 Person Assist Discharge Recommendations PT Discharge Recommendations Home with 06/06 Assist Home Health
--- NOTE | 2019-05-09 15:51 | PC.NURSE ---
Addendum entered by Rachel Valentine R.N. 05/09/19 19:36: 1930 - 2 person assist back to bed. Able to stand-pivot transfer. Inc of urine and stool. Abd binder soiled. Replaced brief, placed in scrub pants. Continue close obs for pt safety. Addendum entered by Rachel Valentine R.N. 05/09/19 19:05: 1900 - Pt taking occasional bites of pudding. HS medication given r/t sporadic PO intake. Addendum entered by Rachel Valentine R.N. 05/09/19 18:14: 1800 - Pt up in his wheelchair. Intermittently agitated. Minimal PO intake. TPN infusion complete. NS @ 25cc/hr. 1:1 observation to prevent inappropriate po intake. Addendum entered by Rachel Valentine R.N. 05/09/19 16:44: 1630 -Surgeon in to see pt. Discussed phone conversation with Pt's father. Relaying food preference of hotdogs and that father reports pt is mad states that he thinks he is not going home. Call placed to dietary, no hotdogs available. Verbal order from MD to notify family of pending discharge for tomorrow. No renewal order of TPN this evening. Call place Dottie, She states that pt will discharge home tomorrow with caregiver, Moreno Shell, . Notified of hospital effort to complete discharges by 11 a.m. Dottie states that she will contact Moreno and relay necessary information. Original Note: 1588 -Call from pt father. States that they have not been into visit r/t other family issues. Father states that pt favorite food is hotdogs, minced. Reports that pt is a full assist to eat, otherwise he shoves all the food in at once. Father states that he may be into see pt tonight prior to family , however if that is not possible, he will be in contact with pt's caregiver and ask him to come in tomorrow to assist with feeding.
[2019-05-09 16:30] VITALS: BP 106/67; PULSE 104; RESP 20; TEMP 37.1; O2SAT 96
--- NOTE | 2019-05-09 18:27 | P.PN_ITS ---
Subjective Date Patient Seen: 05/08/19 Time Patient Seen: 09:00 Interval history: Non verbal does apper comfortable No vomiting Not eating food -seems to be he dislikes food choices Exam Vital Signs (past 8 hours): - 05/09/19 16:30 Temperature 98.8 F Pulse Rate 104 H Respiratory Rate 20 Blood Pressure 106/67 Pulse Oximetry 96 Fraction of Inspired Oxygen 30 Oxygen Delivery Method Room Air Oxygen Flow Rate 0 Narrative Exam Narrative: Well-appearing Breathing comfortably Abdomen soft nontender nondistended Periphery warm well perfused Wound clean dry and intact Objective Labs Result Diagrams: 05/06/19 10:10 05/07/19 04:45 Assessment & Plan Assessment & Plan narrative: 34 yo man POD12 s/p exlap and MIGUEL with enterotomy and closure for SBO from ingested wetwipes bezor x3, with aspiration PNA and hypoxic respiratory failure. NGT had been removed but pt with multiple emesis - re inserted Sat and started on TPN. Has since had contrast study confirming bowel patency. NG tube out, not vomiting, but also not eating much at all neuro -Continue IV keppra and fosphenytoin as PO route unreliable. pulm- no issues, on RA, after 10 day course of pip/benjie abx stopped for asp pna CV - no issues, intermittent tachycardia not concerning GI -NGT out, will advance to full - no issues Heme - enox dvt proph Nutrition -continue TPN, PICC already in place. Quality VTE Deep Vein Thrombosis/Pulmonary Embolism Present on Admission: No
--- NOTE | 2019-05-09 18:30 | P.PN_ITS ---
Subjective Date Patient Seen: 05/09/19 Time Patient Seen: 18:28 Interval history: Still not eating -appears to very much does like hospital food\ Discussed with family -significant portion of his diet as hot dogs, we do not have these in the hospital No emesis whatsoever Exam Vital Signs (past 8 hours): - 05/09/19 16:30 Temperature 98.8 F Pulse Rate 104 H Respiratory Rate 20 Blood Pressure 106/67 Pulse Oximetry 96 Fraction of Inspired Oxygen 30 Oxygen Delivery Method Room Air Oxygen Flow Rate 0 Narrative Exam Narrative: Well-appearing, no acute distress Looks to be quite close to baseline Sitting in wheelchair Abdomen soft nontender nondistended Wound clean dry and intact Periphery warm Objective Labs Result Diagrams: 05/06/19 10:10 05/07/19 04:45 Assessment & Plan Assessment & Plan narrative: 34 yo man POD13 s/p exlap and MIGUEL with enterotomy and closure for SBO from ingested wetwipes bezor x3, with aspiration PNA and hypoxic respiratory failure. NGT had been removed but pt with multiple emesis - re inserted Sat and started on TPN. Has since had contrast study confirming bowel patency. Now 48 hours since emesis Seems to be close to baseline Plan: Stop TPN when this bag completes Oral medication Discharge home tomorrow -better rate food choices, and environment patient is comfortable with Quality VTE Deep Vein Thrombosis/Pulmonary Embolism Present on Admission: No
[2019-05-09] MEDS: TOPIRAMATE 100 MG TABLET PO (19:04)
[2019-05-09 23:18] VITALS: BP 115/69; PULSE 111; RESP 20; TEMP 36.9; O2SAT 91
[2019-05-10] MEDS: METOCLOPRAMIDE 10 MG/2 ML INJ 5 MG IV ×2 (00:05→06:04)
[2019-05-10] MEDS: LORazepam 2 MG/ML INJ 1 MG IV (00:05)
--- NOTE | 2019-05-10 06:29 | PC.NURSE ---
Patient was awake, mildly agitated at midnight, putting blanket and pillow in mouth. 1mg IV Ativan given at that time, he slept well throughout night. Woke in am relaxed, ate approximately 1/3 cup peanut butter. Calm while changing his brief but it was dry. Has not been attempting to pick at abdominal rafael.
[2019-05-10 08:00] VITALS: BP 108/63; PULSE 114; RESP 18; TEMP 36.8; O2SAT 94
[2019-05-10] MEDS: MUPIROCIN 22 GM OINT 1 APPLIC TOP (08:23)
[2019-05-10] MEDS: ENOXAPARIN 40 MG/0.4 ML SYRINGE SUBCUT (08:23)
[2019-05-10] MEDS: VIMPAT 150 MG 150 EACH PO (08:23)
[2019-05-10] MEDS: TOPIRAMATE 100 MG TABLET 200 MG PO (08:28)
[2019-05-10] MEDS: OXcarbazepine 150 MG TABLET 600 MG PO (08:28)
--- NOTE | 2019-05-10 09:24 | PC.NURSE ---
Patient was not interested in eating any part of the breakfast that was provided.
--- NOTE | 2019-05-10 12:27 | CM.DPC ---
DCP Cont: Patient is to be discharged home today. He is now taking p.o foods, as well as medications. Went ahead and left message with ALINA Marrero manager staffing, and let her know that plan. Will await her call back with any questions, and if she needs any information faxed to her. P: Patient is to discharge home today. Allison Lizama RN/Stone Polisher
--- NOTE | 2019-05-10 13:19 | PC.NURSE ---
Discharge Note Pt discharged to home at 1300 with caregiver via wheelchair. Pt to continue all home medications with no changes and no additional prescriptions per MD. Robert removed to abdomen, edges well approximated and free of drainage/erythema. Mastisol and steri-strips applied to incision, pt tolerated well. PICC line discontinued without issue. Pt ate lunch with caregiver feeding him. All questions answered. Mother (Dottie) aware/updated of discharge.
--- NOTE | 2019-05-10 14:40 | PM.DS.1 ---
History of Present Illness Chief complaint: nausea Narrative: 34 yo nonverbal man with developmental delay and tuberous sclerosis with a seizure disorder in this setting he presented to ER overnight with over 24hrs of vomiting. Of note pt has a history of bowel resection after ingesting a hackie sac and pen cap via a large midline laperotomy incision 10yrs ago. A NGT was placed with ongoing bilious output. Over the morning the pt has had ongoing hiccups and intermittent tackycardia. He has not been febrile. Unable to obtain detailed history. CT scan this am demonstrated multiple dilated small bowel loops with high grade obstruction in the distal ileum posteriorly. Social situation is complex - Per state of [place] DPOA is maternal grandfather who is not present or immediately available. He is however en route at some point. His biologic mother is present as is step father. Both are quite concerned. Discharge Providers Date of admission: 04/26/19 00:44 Discharge Date: 05/10/19 Consults: 04/26/19 22:38 Consult to Discharge Planning Routine Comment: 05/04/19 17:52 Consult to Physical Therapy Evaluate & Treat Comment: tries to walk but cannot walk. wheel chair bound Physician Instructions: Evaluate and Treat Discharge provider: Stefan Rodriguez Summary Discharge Diagnosis: 1. Small bowel obstruction ingested bezoar of wet wipes x 3 2. Aspiration PNA 3. Prolonged intestinal ileus 4. intestinal malrotation 5. Seizure disorder - with complex generalized seizures 6. Tuberous sclerosis with cognative delay 7. Severe protein calorie malnutrition from prolonged inability to tolerate food Hospital Course: 34 yo man with underlying seizure disorder and cognitive delay presented with bowel obstruction. NGT was placed and he was taken to OR given poor clinical satus and difficulties with exam. There a large wad of ingested wet wipe pads were identified in the terminal ileum obstructing just proximal to the IC valve. An enterotomy was performed and the bezor extracted. The remainder of his bowel was inspected he was found to have malrotation with the majority of large bowel on the L side. He was managed in the ICU due to his substantial nursing care needs. He went on to develop a long ileus recovering from surgery. He bowel was quite slow to reconstitute its function. NGT was in place for well over a well. To supplement nutrition PICC and TPN were started. Early in his course dx with aspriation PNA and given 10days of pip/benjie with good resolution and weaned from oxygen. He had several seizures while hospitalized dispite maintenance IV keppra - fospheytoin was added w/o futher siezure activity. He eventually regained bowel function and was able to tolerated food on POD12. Discharged POD13 Status at Discharge Cognitive/behavioral status at discharge: at baseline, confused Functional status at discharge: wheelchair bound Overall status at discharge: patient is back to baseline Time Spent with Patient Less than 30 minutes Exam Vital Signs (past 8 hours): - 05/10/19 08:00 Temperature 98.2 F Pulse Rate 114 H Respiratory Rate 18 Blood Pressure 108/63 Pulse Oximetry 94 Fraction of Inspired Oxygen 30 Oxygen Delivery Method Room Air Oxygen Flow Rate 0 Narrative Exam Narrative: Well-appearing no acute distress Tracking faces and people Per caregiver he is at his baseline His abdomen soft nontender nondistended his wounds clean dry and intact -rafael removed Steri-Strips applied Objective Labs Result Diagrams: 05/06/19 10:10 05/07/19 04:45 Discharge Plan Discharge Plan Patient Disposition: Home Discharge Med Rec/Prescriptions Prescriptions: Continued Vimpat 150 MG tablet 150 mg PO BID Qty: 60 RF: 5 loratadine 10 mg Tablet 10 mg PO DAILY RF: 0 baclofen 10 MG tablet PO SEE INSTRUCTIONS PRN (Reason: Muscle Spasticity) RF: 0 oxcarbazepine 600 mg tablet 600 mg PO BID RF: 0 topiramate 100 mg tablet 100 mg PO BEDTIME RF: 0 polyethylene glycol 3350 [Miralax] 119 GM powder 17 gm PO DAILY RF: 0 topiramate [Topamax] 100 MG tablet 200 mg PO QAM RF: 0 Wheelchair: Manual Lightweight 1 dev miscellaneous DIRECTED RF: 0 bisacodyl [Dulcolax (bisacodyl)] 10 MG suppository 10 mg W[place] PRN PRN (Reason: Constipation) RF: 0 [Ensure] 1 ea PO DIRECTED RF: 0 Provider Discharge Instructions Diet: Diet as Tolerated Activity: Okay for all usual active. Does not need to follow up if doing well in surgery clinic Skin/Wound/Dressing Care Report to your healthcare provider any signs of infection, such as:: chills, fever and increased pain Visit Report/Discharge Packet Instructions: [facility]: Wound Care Stand Alone Forms: Surgery Discharge Discharge Data Attending Provider: Stefan Rodriguez Date/Time: 04/26/19 00:44 Discharges patient from system. Discharge Date/Time: 05/10/19 13:00 Quality VTE Deep Vein Thrombosis/Pulmonary Embolism Present on Admission: No
== END 2019-05-10 13:00 | disposition home or self-care (01) | DRG 344 ==
LOC: ED 04-26 00:35 → ICU 04-26 08:58
PROVIDERS: Internal Medicine; Specialist; Surgery; Admitting Provider Surgery; Emergency Provider Emergency Medicine; Visit Provider Surgery
PROC: 0DCB0ZZ Extirpation of Matter from Ileum, Open Approach (ICD-10-PCS; CPT 49000; principal; 2019-04-26 17:45)
DX: T18.3XXA Foreign body in small intestine, initial encounter (principal); J69.0 Pneumonitis due to inhalation of food and vomit; J96.01 Acute respiratory failure with hypoxia; J15.1 Pneumonia due to Pseudomonas; J15.6 Pneumonia due to other Gram-negative bacteria; E43 Unspecified severe protein-calorie malnutrition; R47.01 Aphasia; Q43.3 Congenital malformations of intestinal fixation; Q85.1 Tuberous sclerosis; E87.2 Acidosis; E87.0 Hyperosmolality and hypernatremia; N17.9 Acute kidney failure, unspecified; K56.7 Ileus, unspecified; G40.419 Other generalized epilepsy and epileptic syndromes, intractable, without status epilepticus; R62.50 Unspecified lack of expected normal physiological development in childhood; E87.6 Hypokalemia; Z68.22 Body mass index [BMI] 22.0-22.9, adult; R11.10 Vomiting, unspecified; Y99.8 Other external cause status
CPT/HCPCS: 36415; 36569; 36591; 36592; 36600; 44020; 71045; 74018; 74177; 74250; 80048; 80053; 80177; 80185; 82805; 82962; 83605; 83735; 83880; 84100; 84132; 84145; 85025; 87040; 87070; 87077; 87186; 87205; 87493; 87797; 94002; 94003; 94660; 94760; 94770; 94799; 96361; 96374; 96375; 96376; 97162; 97530; 99283; 99284; B4189; C9113; J0330; J0690; J0696; J1100; J1165; J1170; J1650; J1940; J1953; J2060; J2250; J2310; J2405; J2543; J2704; J2765; J3010; J3475; J3480; J7121; P9041; Q2009; Q9967

== ENCOUNTER 2019-09-09 16:18 | Emergency (ER) | payer MEDICAID, OTHER, SELFPAY ==
[2019-04-30 13:03] VITALS: PULSE 72; RESP 14; O2SAT 98
--- NOTE | 2019-09-09 16:26 | ED_ITS ---
HPI - Head Injury General Chief complaint: Wound/Laceration Stated complaint: fall in shower, wound back of head Time Seen by Provider: 09/09/19 16:22 Source: patient and family Mode of arrival: Wheelchair Limitations: other (developmental delay) History of Present Illness HPI Narrative: 34-year-old male who was taking a shower, he is assisted typically by his mother when he was getting out and he sort of through his head backwards and hit the back of the shower. She states that he did not fall very far. He did not get knocked out. There is minimal blood. The patient has not had any vomiting. He has been little bit more agitated but acting normally. Patient does have some developmental delay. He has a history of tuberous sclerosis with seizure disorder. He takes several medications for his seizures. Patient has had normal movement. He does walk but with assistance. Related Data Home Medications Medication Instructions Recorded Confirmed Wheelchair: Manual Lightweight 1 dev MISCELLANEOUS DIRECTED 04/26/19 04/26/19 [Ensure] 1 ea PO DIRECTED 04/26/19 04/26/19 baclofen 0 tab PO SEE INSTRUCTIONS PRN 04/26/19 04/26/19 bisacodyl [Dulcolax (bisacodyl)] 10 mg TX PRN PRN 04/26/19 04/26/19 loratadine 10 mg PO DAILY 04/26/19 04/26/19 oxcarbazepine 600 mg PO BID 04/26/19 04/26/19 polyethylene glycol 3350 [Miralax] 17 gm PO DAILY 04/26/19 04/26/19 topiramate 100 mg PO BEDTIME 04/26/19 04/26/19 topiramate [Topamax] 200 mg PO QAM 04/26/19 04/26/19 Previous Rx's Medication Instructions Recorded Vimpat 150 mg PO BID #60 tab 01/31/18 Allergies Allergy/AdvReac Type Severity Reaction Status Date / Time lamotrigine [LAMOTRIGINE] Allergy Mild Verified 09/09/19 16:29 tramadol [TRAMADOL] Allergy Mild RASH Verified 09/09/19 16:29 ibuprofen [IBUPROFEN] AdvReac Mild UPSET Verified 09/09/19 16:29 STOMACH Review of Systems Review of Systems ROS Unobtainable: Unobtainable due to mental status/LOC Patient History Medical History Developmental delay of gross and fine motor function (Acute) Seizure (Acute) Tuberous sclerosis (Acute) Surgical History H/O brain surgery (Acute) History of intestinal surgery (Acute) Social History household members: family and caregiver Smoking Status: Never smoker alcohol intake: never Substance Use Type: does not use Exam Narrative Exam Narrative: GEN: Patient is in mild distress. Patient is active at baseline per family on exam. HEENT: Patient has linear vertical laceration on upper posterior scalp, no galeal involvement, subcutaneous exposed, conjunctivae and lids are normal, extraocular movements are intact, PERRL. ears are normal the tympanic membranes intact without erythema or bulging. Able to visualize both TMs. Nares are clear, pharynx is normal, moist mucous membranes. NECK: Supple, no masses, full ROM> RESP: No respiratory distress, breath sounds are normal with equal air movement bilaterally. CVS: Heart is regular rate and rhythm, heart sounds normal with no murmur, strong peripheral pulses, normal capillary refill ABG/GI: Abdomen is nontender, soft, normal bowel sounds, no distention, no organomegaly BACK: No cervical, thoracic or lumbar vertebral point tenderness. Patient has normal range of motion. Patient's gait not tested. Muscle strength is 5/5 in upper extremities. EXT: Nontender, normal range of motion NEURO: Normal motor and sensory, cranial nerves are intact, neuro is at baseline SKIN: No lesions except as above, no petechiae, normal skin that is warm and dry, normal color and without rash. Initial Vital Signs Initial Vital Signs: Vital Signs Temperature 98.1 F 09/09/19 16:29 Procedures Laceration Repair Laceration 1: Site: scalp Size (cm): 5 Description: linear Depth: simple, single layer Local Anesthetic: lidocaine 1% Amount of anesthesia used (mL): 2.5 Pre-repair: wound explored, irrigated extensively and deep structures intact Skin layer closed with: rafael (#6) Course Orders Ordered: Discontinued Medications Lidocaine/Prilocaine (Lidocaine-Prilocaine Cream) 5 gm TOP NOW ONE Stop: 10/27/19 16:38 Last Admin: 09/09/19 16:51 Dose: 5 gm Documented by: DIONNE Lidocaine/Sodium Bicarbonate (Buffered Lidocaine 10 Ml Syr) 10 ml INJ NOW ONE Stop: 09/09/19 16:54 Last Admin: 09/09/19 17:21 Dose: 10 ml Documented by: DIONNE Midazolam HCl (Versed) 10 mg NASAL NOW ONE Stop: 09/09/19 16:38 Last Admin: 09/09/19 16:51 Dose: 10 mg Documented by: DIONNE Vital Signs Vital signs: Vital Signs - 8 hr 09/09/19 16:29 09/09/19 16:30 09/09/19 17:49 Temperature 98.1 F Pulse Rate 104 H 104 H Respiratory Rate 20 18 Blood Pressure [Right Arm] 135/98 H Pulse Oximetry 95 100 09/09/19 18:14 Temperature Pulse Rate 100 H Respiratory Rate 18 Blood Pressure [Right Arm] Pulse Oximetry 100 MDM - Head Injury MDM Narrative Medical decision making narrative: Patient is anxious on exam and discussed with family plan for intranasal Versed for anxiety lysis and topical lidocaine and will attempt closure with rafael. Discussed with family if this is unsuccessful we can of possibly attempt conscious sedation. Patient has been at his baseline since the accident. He is not on any blood thinners. Patient tolerated laceration repair well. patient has returned back to baseline. He had a 6 rafael placed. Family is comfortable returning home with him and we discussed wound management, some techniques to decrease likelihood of patient to pick or pull out his rafael and signs/symptoms to return to the emergency department. Discharge Plan Departure Patient Disposition: Home Clinical Impression: Laceration of scalp Qualifiers: Encounter type: initial encounter Qualified Code(s): S01.01XA - Laceration wi thout foreign body of scalp, initial encounter Discharge Date/Time: 09/09/19 18:14 Instructions: DI for Laceration Repair of the Scalp Activity Restrictions/Additional Instructions: Follow-up with primary care, urgent care or the emergency department for staple removal in the next 7-10 days. You may give Tylenol to a 1000 mg every 8 hours as needed for pain. I would recommend a hat, beanie or block/hooded shirt/sweatshirt if patient will tolerate to decrease likelihood of pulling out rafael. Wound Care: Keep wound(s) clean and dry. Wash daily with soap and water only. Do not use over the counter products (alcohol or peroxide)on the wounds unless instructed by a physician. If wound condition worsens (increased/expanding redness, developing fluid blisters, or worsening pain), either contact your doctor for an urgent re- assessment , or return to the Emergency Department. Return to the Emergency Department for any new or worsening symptoms. Return to the ED, urgent care, or vist a primary care doctor for removal or suture or rafael in 7-10 days. Return if fever greater than 100.4 Fahrenheit, increased swelling, increasing pain or worsening symptoms such as increased discharge or spreading redness. Return for new changes to mental status, decreased mental status, persistent vomiting, swelling of the head or scalp, new weakness, increased frequency or changes in seizure activity or other new or concerning symptoms. Prescriptions: No Action Vimpat 150 MG tablet 150 mg PO BID Qty: 60 RF: 5 loratadine 10 mg Tablet 10 mg PO DAILY RF: 0 baclofen 10 MG tablet 0 tab PO SEE INSTRUCTIONS PRN (Reason: Muscle Spasticity) RF: 0 oxcarbazepine 600 mg tablet 600 mg PO BID RF: 0 topiramate 100 mg tablet 100 mg PO BEDTIME RF: 0 polyethylene glycol 3350 [Miralax] 119 GM powder 17 gm PO DAILY RF: 0 topiramate [Topamax] 100 MG tablet 200 mg PO QAM RF: 0 Wheelchair: Manual Lightweight 1 dev miscellaneous DIRECTED RF: 0 bisacodyl [Dulcolax (bisacodyl)] 10 MG suppository 10 mg TX PRN PRN (Reason: Constipation) RF: 0 [Ensure] 1 ea PO DIRECTED RF: 0
[2019-09-09 16:29] VITALS: TEMP 36.7; BMI 22.6
[2019-09-09 16:30] VITALS: BP 135/98; PULSE 104; RESP 20; O2SAT 95
[2019-09-09] MEDS: MIDAZOLAM 5 MG/ML VIAL 10 MG NASAL (16:51)
[2019-09-09] MEDS: LIDOCAINE/PRILOCAINE 5 GM TOP (16:51)
[2019-09-09] MEDS: LIDO 1%/SOD BICARB 8.4% (10ML) 10 ML SYRINGE INJ (17:21)
--- NOTE | 2019-09-09 17:48 | PC.NURSE ---
IN Versed given and procedure to staple at [address] Ngo. pt tolerated procedure well. 5 rafael placed. awaiting DC home
[2019-09-09 17:49] VITALS: PULSE 104; RESP 18; O2SAT 100
[2019-09-09 18:14] VITALS: PULSE 100; RESP 18; O2SAT 100
== END 2019-09-09 18:14 | disposition home or self-care (01) ==
PROVIDERS: Emergency Provider Emergency Medicine
DX: S01.01XA Laceration without foreign body of scalp, initial encounter (principal); W01.198A Fall on same level from slipping, tripping and stumbling with subsequent striking against other object, initial encounter; Y93.E1 Activity, personal bathing and showering
CPT/HCPCS: 12002; 99283; J2250

== ENCOUNTER 2019-10-23 20:56 | Emergency (ER) | payer MEDICAID, OTHER, SELFPAY ==
[2019-04-30 13:03] VITALS: PULSE 72; RESP 14; O2SAT 98
[2019-10-23 20:58] VITALS: BP 121/84; PULSE 111; RESP 21; TEMP 36.9; O2SAT 95
--- NOTE | 2019-10-23 21:05 | DI.RAD.S_ITS ---
PROCEDURE: XR CHEST 1V INDICATIONS: cough/aloc TECHNIQUE: One view of the chest was acquired. COMPARISON: [facility], , XR CHEST 1V, 05/02/2019, 11:36. [facility], CR, XR CHEST 1V, 05/05/2019, 12:22. FINDINGS: Surgical changes and devices: None. Lungs and pleura: Lungs are clear. No pleural effusions or pneumothorax. Mediastinum: Mediastinal contours appear normal. Heart size is normal. Bones and chest wall: No suspicious bony lesions. Overlying soft tissues appear unremarkable. Scoliosis. IMPRESSION: No acute cardiopulmonary disease. Dictated by: Julia Dyer M.D. on 10/23/2019 at 21:49 Approved by: Julia Dyer M.D. on 10/23/2019 at 21:51
[2019-10-23 21:09] VITALS: BP 121/84; PULSE 120; RESP 19; O2SAT 95
[2019-10-23 21:09] LABS: Add Manual Diff / Slide Review NO; Basophils Absolute Auto 100 /uL (0-100); Basophils Percent Auto 0.8 % (0-2); Eosinophils Absolute Auto 0 /uL (0-450); Eosinophils Percent Auto 0.2 % (2-4); Hematocrit 38.2 % (41-53); Hemoglobin 12.4 g/dL (13.5-17.5); Lymphocytes Absolute Auto 1300 /uL (1100-4500); Lymphocytes Percent Auto 9.6 % (25-40); Mean Corpuscular HGB Conc 32.5 % (30-36); Mean Corpuscular Hemoglobin 25.5 PG (26-34); Mean Corpuscular Volume 78.3 fL (80-100); Monocytes Absolute Auto 800 /uL (0-900); Monocytes Percent Auto 5.6 % (3-14); Neutrophils Absolute Auto 11500 /uL (1500-7000); Neutrophils Percent Auto 83.8 % (50-75); Platelet Count 692 X10^3/uL (150-400); Red Blood Cell Count 4.87 X10^6/uL (4.5-5.9); Red Cell Distribution Width 15.7 % (11.6-14.8); White Blood Cell Count 13.7 X10^3/uL (4.5-11.0)
--- NOTE | 2019-10-23 21:24 | ED.SEIZURE ---
HPI - Seizure <Dakota Liu, DO - Last Filed: 10/24/19 18:35> General Chief Complaint: Seizure Stated Complaint: Seizure Time Seen by Provider: 10/23/19 20:58 Source: EMS Mode of arrival: EMS Limitations: altered mental status History of Present Illness HPI Narrative: Patient is a 34-year-old male. 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 He is nonverbal at baseline. He has been seen in this emergency department in the past but not by myself. It is reported that he does have a history of seizures. He arrived by EMS after they were called by the patient's mother for increased seizure activity over the past 12-36 hours. Initially mother was not in the emergency department provide any specific information. After she did arrive she stated that the patient has not seen a neurologist for at least the past year and a half. His seizure medication is provided by the provider at the [facility]. She states that the patient does take his pills my mouth. He has been taking on a daily basis. He has not had any changes in his medications recently. She states that over the past several days she has noticed that he has had an increase in his seizure activity. She states that his normal seizures are variable however most the time it is him looking up into the right. She has noticed that he has had an increase in these types of seizures and also other shaking like seizures. She states he has not had a fever recently. He has not had a bowel movement the past couple days and she felt like that maybe he was in pain for trying to have a bowel movement. No rashes. No specific trauma. No sick contacts. Other than his normal seizure medications she has not done anything for the increase in seizures. She states that at baseline the child can walk however he needs assistance by other individuals. She states that the family provides total care for the patient to include feeding in bathing and dressing patient. Related Data Home Medications Medication Instructions Recorded Confirmed Wheelchair: Manual Lightweight 1 dev MISCELLANEOUS DIRECTED 04/26/19 10/23/19 baclofen 10 mg PO TID PRN 04/26/19 10/24/19 food supplemt, lactose-reduced 1 ea PO DIRECTED #0 04/26/19 10/23/19 [Ensure] loratadine 10 mg PO DAILY 04/26/19 10/24/19 oxcarbazepine 600 mg PO BID 04/26/19 10/24/19 polyethylene glycol 3350 [Miralax] 17 gm PO DAILY 04/26/19 10/24/19 topiramate 100 mg PO BEDTIME 04/26/19 10/23/19 topiramate [Topamax] 200 mg PO QAM 04/26/19 10/24/19 bisacodyl 10 mg WI DAILY PRN 10/24/19 10/24/19 docusate sodium [Stool Softener] 100 mg PO BID 10/24/19 10/24/19 Previous Rx's Medication Instructions Recorded Vimpat 150 mg PO BID #60 tab 01/31/18 Allergies Allergy/AdvReac Type Severity Reaction Status Date / Time lamotrigine [LAMOTRIGINE] Allergy Mild Verified 09/09/19 16:29 tramadol [TRAMADOL] Allergy Mild RASH Verified 09/09/19 16:29 ibuprofen [IBUPROFEN] AdvReac Mild UPSET Verified 09/09/19 16:29 STOMACH Review of Systems <Dakota Liu DO - Last Filed: 10/24/19 18:35> Review of Systems ROS Unobtainable: Unobtainable due to mental status/LOC Patient History <Dakota Liu DO - Last Filed: 10/24/19 18:35> Medical History Developmental delay of gross and fine motor function (Acute) Seizure (Acute) Tuberous sclerosis (Acute) Surgical History H/O brain surgery (Acute) History of intestinal surgery (Acute) Social History household members: family and caregiver Smoking Status: Never smoker alcohol intake: never Smoking Status: Never smoker Substance Use Type: does not use Exam <DO Delaney Acuna Last Filed: 10/24/19 18:35> Initial Vital Signs Initial Vital Signs: Vital Signs Temperature 98.5 F 10/23/19 20:58 Pulse Rate 111 H 10/23/19 20:58 Respiratory Rate 21 10/23/19 20:58 Blood Pressure 121/84 10/23/19 20:58 Pulse Oximetry 95 10/23/19 20:58 Const General: comfortable and No acute distress Orientation: awake and other (Nonverbal) [facility] Head: normal to inspection and normocephalic Eyes Pupils: PERRL Resp Effort & Inspection: normal respiratory effort Auscultation: clear to auscultation bilaterally Cardio Rate: tachycardic Rhythm: regular rhythm GI Inspection: non-distended Palpation: soft Skin Lesions: no lesions Rashes: no rashes Neuro Other: Patient does not follow commands. Moves all 4 extremities spontaneously. Is nonverbal. Extrem General: capillary refill normal and No edema Psych Appearance: well kempt <Essie Ngo, DO - Last Filed: 10/24/19 18:47> Initial Vital Signs Initial Vital Signs: Vital Signs Temperature 98.5 F 10/23/19 20:58 Pulse Rate 111 H 10/23/19 20:58 Respiratory Rate 21 10/23/19 20:58 Blood Pressure 121/84 10/23/19 20:58 Pulse Oximetry 95 10/23/19 20:58 Scores <Dakota Liu DO - Last Filed: 10/24/19 18:35> GCS Ernesto coma scale eye opening: Spontaneous Ernesto coma scale verbal response: Sounds [place] coma scale motor response: Localising [place] coma scale total score: 11 Course <Dakota Liu DO - Last Filed: 10/24/19 18:35> Orders Ordered: Discontinued Medications Cephalexin HCl (Keflex) 500 mg PO NOW ONE Stop: 10/24/19 11:34 Last Admin: 10/24/19 11:50 Dose: 500 mg Documented by: MARYANN Levetiracetam 1,000 mg/ Sodium (Chloride) 110 mls @ 440 mls/hr IV NOW ONE Stop: 10/24/19 00:17 Last Infusion: 10/24/19 01:07 Dose: 0 mls/hr Documented by: Admin: 10/24/19 00:19 Dose: 440 mls/hr Documented by: TRIP Levetiracetam 1,500 mg/ Sodium (Chloride) 115 mls @ 460 mls/hr IV NOW ONE Stop: 10/24/19 00:19 Last Infusion: 10/24/19 01:40 Dose: 0 mls/hr Documented by: Admin: 10/24/19 01:06 Dose: 460 mls/hr Documented by: TRIP Valproic Acid 1,000 mg/ (Dextrose) 60 mls @ 60 mls/hr IV NOW ONE Stop: 10/24/19 01:42 Last Infusion: 10/24/19 03:32 Dose: 0 mls/hr Documented by: Admin: 10/24/19 02:27 Dose: 60 mls/hr Documented by: TRIP Lidocaine HCl (Urojet) 5 ml TOP NOW ONE Stop: 10/24/19 09:10 Last Admin: 10/24/19 09:24 Dose: 5 ml Documented by: MARYANN Lorazepam (Ativan) 1 mg IV NOW ONE Stop: 10/23/19 21:59 Last Admin: 10/23/19 22:20 Dose: 1 mg Documented by: LESLEY Vital Signs Vital signs: Vital Signs - 8 hr 10/24/19 11:40 Pulse Rate 91 H Respiratory Rate 16 Blood Pressure [Left Arm] 124/75 Pulse Oximetry 99 <Essie Ngo, - Last Filed: 10/24/19 18:47> Orders Ordered: Discontinued Medications Cephalexin HCl (Keflex) 500 mg PO NOW ONE Stop: 10/24/19 11:34 Last Admin: 10/24/19 11:50 Dose: 500 mg Documented by: MARYANN Levetiracetam 1,000 mg/ Sodium (Chloride) 110 mls @ 440 mls/hr IV NOW ONE Stop: 10/24/19 00:17 Last Infusion: 10/24/19 01:07 Dose: 0 mls/hr Documented by: Admin: 10/24/19 00:19 Dose: 440 mls/hr Documented by: TRIP Levetiracetam 1,500 mg/ Sodium (Chloride) 115 mls @ 460 mls/hr IV NOW ONE Stop: 10/24/19 00:19 Last Infusion: 10/24/19 01:40 Dose: 0 mls/hr Documented by: Admin: 10/24/19 01:06 Dose: 460 mls/hr Documented by: TRIP Valproic Acid 1,000 mg/ (Dextrose) 60 mls @ 60 mls/hr IV NOW ONE Stop: 10/24/19 01:42 Last Infusion: 10/24/19 03:32 Dose: 0 mls/hr Documented by: Admin: 10/24/19 02:27 Dose: 60 mls/hr Documented by: TRIP Lidocaine HCl (Urojet) 5 ml TOP NOW ONE Stop: 10/24/19 09:10 Last Admin: 10/24/19 09:24 Dose: 5 ml Documented by: MARYANN Lorazepam (Ativan) 1 mg IV NOW ONE Stop: 10/23/19 21:59 Last Admin: 10/23/19 22:20 Dose: 1 mg Documented by: LESLEY Vital Signs Vital signs: Vital Signs - 8 hr 10/24/19 11:40 Pulse Rate 91 H Respiratory Rate 16 Blood Pressure [Left Arm] 124/75 Pulse Oximetry 99 MDM - Seizure <Dakota Liu, DO - Last Filed: 10/24/19 18:35> Lab Data Attestation: I reviewed the patient's lab results. Result diagrams: 10/23/19 20:40 10/23/19 20:40 Labs: Lab Results 10/23/19 10/23/19 10/23/19 Range/Units 20:40 20:40 20:40 WBC 13.7 H (4.5-11.0) X10^3/uL RBC 4.87 (4.5-5.9) X10^6/uL Hgb 12.4 L (13.5-17.5) g/dL Hct 38.2 L (41-53) % MCV 78.3 L (80-100) fL MCH 25.5 L (26-34) PG MCHC 32.5 (30-36) % RDW 15.7 H (11.6-14.8) % Plt Count 692 H (150-400) X10^3/uL Neut % (Auto) 83.8 H (50-75) % Lymph % (Auto) 9.6 L (25-40) % [place] % (Auto) 5.6 (3-14) % Eos % (Auto) 0.2 L (2-4) % Baso % (Auto) 0.8 (0-2) % Neut # (Auto) 57888 H (4166-3593) /uL Lymph # (Auto) 1300 (9128-7146) /uL [place] # (Auto) 800 (0-900) /uL Eos # (Auto) 0 (0-450) /uL Baso # (Auto) 100 (0-100) /uL Sodium 134 L (137-145) mmol/L Potassium 3.9 (3.4-5.1) mmol/L Chloride 100 (98-107) mmol/L Carbon Dioxide 21 L (22-32) mmol/L BUN 10 (9-20) mg/dL Creatinine 1.10 (0.66-1.25) mg/dL Estimated GFR > 60.0 (>60) mL/min BUN/Creatinine Ratio 9.1 (6-22) Glucose 98 (70-100) mg/dL Calcium 9.1 (8.4-10.2) mg/dL Total Bilirubin 0.4 (0.2-1.3) mg/dL AST 26 (17-59) IU/L ALT 14 (<50) IU/L Alkaline Phosphatase 140 H (38-126) U/L Total Protein 8.0 (6.3-8.2) g/dL Albumin 4.4 (3.5-5.0) g/dL Globulin 3.6 (1.7-4.1) g/dL Albumin/Globulin Ratio 1.2 (1.0-2.8) Lipase 84 (23-300) U/L Procalcitonin (<0.5) ng/mL Prolactin 13.2 (3.7-17.9) ng/mL Urine Color Urine Appearance Urine pH (4.5-8.0) Ur Specific [place] (1.000-1.035) Urine Protein (Negative) Urine Glucose (UA) (Negative) g/dL Urine Ketones (NEGATIVE) Urine Occult Blood (Negative) Urine Nitrate (Negative) Urine Bilirubin (NEGATIVE) Urine Urobilinogen (0.2) E.U./dL Ur Leukocyte Esterase (NEGATIVE) Urine RBC (0-5/HPF) Urine WBC (0-5/HPF) Urine Bacteria (None) Ur Culture Indicated? 10/23/19 10/24/19 Range/Units 20:40 09:20 WBC (4.5-11.0) X10^3/uL RBC (4.5-5.9) X10^6/uL Hgb (13.5-17.5) g/dL Hct (41-53) % MCV (80-100) fL MCH (26-34) PG MCHC (30-36) % RDW (11.6-14.8) % Plt Count (150-400) X10^3/uL Neut % (Auto) (50-75) % Lymph % (Auto) (25-40) % [place] % (Auto) (3-14) % Eos % (Auto) (2-4) % Baso % (Auto) (0-2) % Neut # (Auto) (9678-1975) /uL Lymph # (Auto) (5174-1045) /uL [place] # (Auto) (0-900) /uL Eos # (Auto) (0-450) /uL Baso # (Auto) (0-100) /uL Sodium (137-145) mmol/L Potassium (3.4-5.1) mmol/L Chloride (98-107) mmol/L Carbon Dioxide (22-32) mmol/L BUN (9-20) mg/dL Creatinine (0.66-1.25) mg/dL Estimated GFR (>60) mL/min BUN/Creatinine Ratio (6-22) Glucose (70-100) mg/dL Calcium (8.4-10.2) mg/dL Total Bilirubin (0.2-1.3) mg/dL AST (17-59) IU/L ALT (<50) IU/L Alkaline Phosphatase (38-126) U/L Total Protein (6.3-8.2) g/dL Albumin (3.5-5.0) g/dL Globulin (1.7-4.1) g/dL Albumin/Globulin Ratio (1.0-2.8) Lipase (23-300) U/L Procalcitonin < 0.05 (<0.5) ng/mL Prolactin (3.7-17.9) ng/mL Urine Color Yellow Urine Appearance Cloudy Urine pH 5.5 (4.5-8.0) Ur Specific [place] 1.020 (1.000-1.035) Urine Protein 2+ H (Negative) Urine Glucose (UA) Negative (Negative) g/dL Urine Ketones Trace H (NEGATIVE) Urine Occult Blood 3+ H (Negative) Urine Nitrate Positive (Negative) Urine Bilirubin Negative (NEGATIVE) Urine Urobilinogen 0.2 (0.2) E.U./dL Ur Leukocyte Esterase Trace H (NEGATIVE) Urine RBC 5-10/hpf H (0-5/HPF) Urine WBC 30-100/hpf H (0-5/HPF) Urine Bacteria Many (>30) H (None) Ur Culture Indicated? Specimen cultured Imaging Data CT scan - head: Radiologist's impression: Mild nonspecific periventricular deep white matter disease. Prominent periventricular calcifications. This is consistent with tuberous sclerosis. Encephalomalacia left frontal lobe Chest x-ray: Radiologist's impression: [place] [id number] [place] [id number] XRay Report Signed Patient: Charanjit Grove [facility]#: [id number] : 1985Acct:[id number] Age/Sex: 34 / MDate of Service: 10/23/19 Loc: ED Accession Number: [id number] Procedure: XR chest 1V Ordering Provider: Dakota Liu D.O. PROCEDURE: XR CHEST 1V INDICATIONS: cough/aloc TECHNIQUE: One view of the chest was acquired. COMPARISON: [facility], CR, XR CHEST 1V, 05/02/2019, 11:36. [facility], CR, XR CHEST 1V, 05/05/2019, 12:22. FINDINGS: Surgical changes and devices: None. Lungs and pleura: Lungs are clear. No pleural effusions or pneumothorax. Mediastinum: Mediastinal contours appear normal. Heart size is normal. Bones and chest wall: No suspicious bony lesions. Overlying soft tissues appear unremarkable. Scoliosis. IMPRESSION: No acute cardiopulmonary disease. Dictated by: Julia Dyer M.D. on 10/23/2019 at 21:49 Approved by: Julia Dyer M.D. on 10/23/2019 at 21:51 MDM Narrative Medical decision making narrative: Patient's electrolytes were unremarkable. He does have a leukocytosis however there's no signs of an infection. He is afebrile. Procalcitonin is negative. His head CT shows no acute pathology. In the emergency department patient had multiple episodes of what his mother described as his seizures and what appeared to be seizures to myself. He did have episodes where he was looking up into the right. He also had other episodes where he became stiff and held his breath. There is no signs of cyanosis. He also had other episodes where he did have mild generalized shaking. All of these events lasted less than 10-15 seconds. At 1 point he did have multiple events like this in a row without apparent return to normal. He was given Ativan. I did discuss the case with Dr. Mcgarry on-call for Neurology at [facility]. Then a long discussion about the patient. There is concerned that the patient has been having increase in his seizure activity over the past couple days. The fact that he had multiple events like this in a row without return to baseline is concerning for status epilepticus. We went over the patient's medication list together. Prior to this discussion 1 g of Keppra was ordered. He did recommend a total of 1.5 g of Keppra so this was ordered. Unfortunately we do not have Vimpat here at this hospital. He did recommend Depacn which was administered at 1 g. After the started the Keppra patient's seizure activity did seem to stop. Is difficult to assess the patient because it was too o'clock in the morning and the patient was sleeping. He was arousable to stimuli however the mother states that she did not feel that he was back to his baseline. During this time when he was sleeping he did spontaneously move all 4 extremities. They do not appear to be any further seizure-like activity. Dr. Mcgarry recommend the patient be transferred to [facility] for further evaluation and continuous EEG monitoring. I did discuss the case with Dr. Woods hospitalist at [facility] who accepted the patient. I did discuss the need for the transfer with the patient's mother. She stated that she would not be able to travel to that hospital until after noon on 10/24. She stated that she had an appointment at her methadone clinic and she could not miss that appointment. Her name is Dottie. Cell phone number [phone]. Her home phone number is [phone]. She stated that the patient's power of assistant county attorney is his grandfather. POA is name is Willis. Patient's mother unable to provide any contact information for Willis. She states he does not have a phone however she was going to contact him to let him know of the transfer. 0700: Patient has remained seizure-free for the past several hours. He has been resting comfortably. No abnormal movements on my exam. Continue to wait for bed assignment. Care turned over to Dr. Ngo at change of shift. No labs pending. She will continue to watch for seizure activity. Anticipate transfer. <Essie Ngo, DO - Last Filed: 10/24/19 18:47> Lab Data Attestation: I reviewed the patient's lab results. Labs: Lab Results 10/23/19 10/23/19 10/23/19 Range/Units 20:40 20:40 20:40 WBC 13.7 H (4.5-11.0) X10^3/uL RBC 4.87 (4.5-5.9) X10^6/uL Hgb 12.4 L (13.5-17.5) g/dL Hct 38.2 L (41-53) % MCV 78.3 L (80-100) fL MCH 25.5 L (26-34) PG MCHC 32.5 (30-36) % RDW 15.7 H (11.6-14.8) % Plt Count 692 H (150-400) X10^3/uL Neut % (Auto) 83.8 H (50-75) % Lymph % (Auto) 9.6 L (25-40) % [place] % (Auto) 5.6 (3-14) % Eos % (Auto) 0.2 L (2-4) % Baso % (Auto) 0.8 (0-2) % Neut # (Auto) 41165 H (0802-2301) /uL Lymph # (Auto) 1300 (0977-5785) /uL [place] # (Auto) 800 (0-900) /uL Eos # (Auto) 0 (0-450) /uL Baso # (Auto) 100 (0-100) /uL Sodium 134 L (137-145) mmol/L Potassium 3.9 (3.4-5.1) mmol/L Chloride 100 (98-107) mmol/L Carbon Dioxide 21 L (22-32) mmol/L BUN 10 (9-20) mg/dL Creatinine 1.10 (0.66-1.25) mg/dL Estimated GFR > 60.0 (>60) mL/min BUN/Creatinine Ratio 9.1 (6-22) Glucose 98 (70-100) mg/dL Calcium 9.1 (8.4-10.2) mg/dL Total Bilirubin 0.4 (0.2-1.3) mg/dL AST 26 (17-59) IU/L ALT 14 (<50) IU/L Alkaline Phosphatase 140 H (38-126) U/L Total Protein 8.0 (6.3-8.2) g/dL Albumin 4.4 (3.5-5.0) g/dL Globulin 3.6 (1.7-4.1) g/dL Albumin/Globulin Ratio 1.2 (1.0-2.8) Lipase 84 (23-300) U/L Procalcitonin (<0.5) ng/mL Prolactin 13.2 (3.7-17.9) ng/mL Urine Color Urine Appearance Urine pH (4.5-8.0) Ur Specific [place] (1.000-1.035) Urine Protein (Negative) Urine Glucose (UA) (Negative) g/dL Urine Ketones (NEGATIVE) Urine Occult Blood (Negative) Urine Nitrate (Negative) Urine Bilirubin (NEGATIVE) Urine Urobilinogen (0.2) E.U./dL Ur Leukocyte Esterase (NEGATIVE) Urine RBC (0-5/HPF) Urine WBC (0-5/HPF) Urine Bacteria (None) Ur Culture Indicated? 10/23/19 10/24/19 Range/Units 20:40 09:20 WBC (4.5-11.0) X10^3/uL RBC (4.5-5.9) X10^6/uL Hgb (13.5-17.5) g/dL Hct (41-53) % MCV (80-100) fL MCH (26-34) PG MCHC (30-36) % RDW (11.6-14.8) % Plt Count (150-400) X10^3/uL Neut % (Auto) (50-75) % Lymph % (Auto) (25-40) % [place] % (Auto) (3-14) % Eos % (Auto) (2-4) % Baso % (Auto) (0-2) % Neut # (Auto) (3985-8119) /uL Lymph # (Auto) (2759-9962) /uL [place] # (Auto) (0-900) /uL Eos # (Auto) (0-450) /uL Baso # (Auto) (0-100) /uL Sodium (137-145) mmol/L Potassium (3.4-5.1) mmol/L Chloride (98-107) mmol/L Carbon Dioxide (22-32) mmol/L BUN (9-20) mg/dL Creatinine (0.66-1.25) mg/dL Estimated GFR (>60) mL/min BUN/Creatinine Ratio (6-22) Glucose (70-100) mg/dL Calcium (8.4-10.2) mg/dL Total Bilirubin (0.2-1.3) mg/dL AST (17-59) IU/L ALT (<50) IU/L Alkaline Phosphatase (38-126) U/L Total Protein (6.3-8.2) g/dL Albumin (3.5-5.0) g/dL Globulin (1.7-4.1) g/dL Albumin/Globulin Ratio (1.0-2.8) Lipase (23-300) U/L Procalcitonin < 0.05 (<0.5) ng/mL Prolactin (3.7-17.9) ng/mL Urine Color Yellow Urine Appearance Cloudy Urine pH 5.5 (4.5-8.0) Ur Specific [place] 1.020 (1.000-1.035) Urine Protein 2+ H (Negative) Urine Glucose (UA) Negative (Negative) g/dL Urine Ketones Trace H (NEGATIVE) Urine Occult Blood 3+ H (Negative) Urine Nitrate Positive (Negative) Urine Bilirubin Negative (NEGATIVE) Urine Urobilinogen 0.2 (0.2) E.U./dL Ur Leukocyte Esterase Trace H (NEGATIVE) Urine RBC 5-10/hpf H (0-5/HPF) Urine WBC 30-100/hpf H (0-5/HPF) Urine Bacteria Many (>30) H (None) Ur Culture Indicated? Specimen cultured MDM Narrative Medical decision making narrative: Patient seen by myself, signed out to me by Dr. Liu. Patient has a history of tuberous sclerosis. He has had increasing change in his frequency and type of seizures. He had several seizures without returning to baseline. Neurology was consulted and patient was loaded with Keppra as well as Depacon. Since that time and during my time in the department he has not had any additional seizures. On evaluation he is alert, he is typically nonverbal and seems to be back at his baseline at this time. Patient's labs were reviewed. Patient's head CT was negative with changes from his tuberous sclerosis appearing stable not show any acute changes. Patient has been accepted at [facility], we are currently awaiting a bed placement. I did speak with Dr. Velasquez from neurology, case as he was not familiar with the patient. He did not recommend reloading patient was any additional IV medications. He did recommend patient at least having his home morning medications which he has. We did discuss if hospitalist felt comfortable keeping them here, I spoke with Dr. Forrester and he did not feel comfortable with this as patient baseline mental status is nonverbal and if there is any changes were unable to have EEG here at [facility]. Discussed with [facility] and updated them. Plan for transfer and bed assignment has been made. Patient has continued to be seizure free during my shift since 7am. Urine did show changes consistent with possible UTI with nitrates and leukocyte esterase. Dr. Velasquez and I did discuss this and that this might be focus causing his decreased seizure threshold. Patient has been taking oral medications and was treated with oral cephalexin. Patient family updated. Discharge Plan Departure Patient Disposition: [facility] Clinical Impression: Seizure Discharge Date/Time: 10/24/19 12:08 Prescriptions: No Action Vimpat 150 MG tablet 150 mg PO BID Qty: 60 RF: 5 loratadine 10 mg Tablet 10 mg PO DAILY RF: 0 baclofen 10 MG tablet 10 mg PO TID PRN (Reason: Muscle Spasm) RF: 0 oxcarbazepine 600 mg tablet 600 mg PO BID RF: 0 topiramate 100 mg tablet 100 mg PO BEDTIME RF: 0 polyethylene glycol 3350 [Miralax] 119 GM powder 17 gm PO DAILY RF: 0 topiramate [Topamax] 100 MG tablet 200 mg PO QAM RF: 0 Wheelchair: Manual Lightweight 1 dev miscellaneous DIRECTED RF: 0 Ensure Liquid 1 ea PO DIRECTED Qty: 0 RF: 0 bisacodyl 10 mg suppository 10 mg WI DAILY PRN (Reason: Constipation) RF: 0 docusate sodium [Stool Softener] 100 mg capsule 100 mg PO BID RF: 0
[2019-10-23 21:27] LABS: Alanine Aminotransferase 14 IU/L (<50); Albumin 4.4 g/dL (3.5-5.0); Albumin Globulin Ratio 1.2 (1.0-2.8); Alkaline Phosphatase 140 U/L (38-126); Aspartate Aminotransferase 26 IU/L (17-59); BUN Creatinine Ratio 9.1 (6-22); Bilirubin Total 0.4 mg/dL (0.2-1.3); Blood Urea Nitrogen 10 mg/dL (9-20); Calcium 9.1 mg/dL (8.4-10.2); Carbon Dioxide 21 mmol/L (22-32); Chloride 100 mmol/L (98-107); Estimated Glomerular Filt Rate > 60.0 mL/min (>60); Globulin 3.6 g/dL (1.7-4.1); Glucose 98 mg/dL (70-100); HEMOLYSIS < 15 (0-50); Lipase 84 U/L (23-300); Potassium 3.9 mmol/L (3.4-5.1); Sodium 134 mmol/L (137-145)
[2019-10-23 21:39] VITALS: BP 117/97; PULSE 108; RESP 21; O2SAT 96
[2019-10-23 21:42] LABS: Prolactin 13.2 ng/mL (3.7-17.9)
--- NOTE | 2019-10-23 21:58 | DI.CT.S_ITS ---
PROCEDURE: CT HEAD/BRAIN WO CON INDICATIONS: Increase in seizure activity TECHNIQUE: Noncontrast 4.5 mm thick angled axial sections acquired from the foramen magnum to the vertex, with coronal and sagittal reformats. For radiation dose reduction, the following was used: automated exposure control, adjustment of mA and/or kV according to patient size. COMPARISON: [facility], CT, HEAD WITHOUT CONTRAST, 09/19/2013, 13:27. [facility], CT, HEAD WITHOUT CONTRAST, 07/26/2016, 1:36. FINDINGS: Image quality: Excellent. CSF spaces: Basal cisterns are patent. Small anterior left temporal and right frontal arachnoid cysts are stable. Ventricles are normal in size and shape. Brain: No midline shift. Multiple coarse calcifications noted in the subependymoma of the lateral ventricles are stable compared to prior examinations.. Small area of encephalomalacia with associated dystrophic calcifications noted in left frontal lobe which was stable compared to prior examination. Scattered calcifications in the left frontal lobe left parietal lobe are stable. involving the No intracranial masses or hemorrhage. Duncan-white matter interface is normal. Skull and face: Prior frontal craniotomy noted. The visualized facial bones are intact, without suspicious lesions. Sinuses: Visualized sinuses and mastoids are clear. IMPRESSION: 1. No acute intracranial disease process. 2. Sequela of reported tuberous sclerosis stable compared to prior exams. Dictated by: Marilyn Mejias MD, PhD on 10/24/2019 at 7:23 Approved by: Marilyn Mejias MD, PhD on 10/24/2019 at 7:28
[2019-10-23] MEDS: LORazepam 2 MG/ML INJ 1 MG IV (22:20)
[2019-10-23 22:43] VITALS: BP 122/76; PULSE 105; RESP 16; O2SAT 96
[2019-10-24] VITALS (8 sets, daily range): BP systolic 108–124; BP diastolic 62–77; PULSE 85–101; RESP 15–28; O2SAT 94–100
[2019-10-24] MEDS: levETIRAcetam 1,000 MG in SODIUM CHLORIDE 0.9% 100 ML 440 ML IV (00:19)
[2019-10-24] MEDS: levETIRAcetam 1,500 MG in SODIUM CHLORIDE 0.9% 100 ML 460 ML IV (01:06)
[2019-10-24 02:20] LABS: Procalcitonin < 0.05 ng/mL (<0.5)
[2019-10-24] MEDS: VALPROIC ACID 1,000 MG in DEXTROSE 5 % IN WATER 50 ML 60 ML IV (02:27)
[2019-10-24] MEDS: LIDOCAINE 2% (UROJET) 5 ML GEL TOP (09:24)
--- NOTE | 2019-10-24 09:27 | PC.NURSE ---
Patient appears restless in bed,grabbing at genital area. Per shift superintendent caustic cresylate staff at reports patient had not voided for them and brief is dry at this time. Bladder scanner showed 300ml in bladder. I spoke with father of the patient who denies any urinary retention issues. I spoke with Dr. Ngo who gave a verbal order for a catheter to be placed at this time.
--- NOTE | 2019-10-24 09:45 | PC.NURSE ---
I spoke with the patient's mother at this time who reports that he takes his morning meds PO with water. I gave him his medication: VIMPAT (150mg), tegretol (600mg), colace, and Topamax (200mg). He swallowed the medication with water without difficulty.
[2019-10-24 09:48] LABS: Appearance Urine UA CLOUDY; Bilirubin Urine UA NEGATIVE (NEGATIVE); Color Urine UA YELLOW; Glucose Urine UA NEGATIVE (Negative); Ketones Urine UA TRACE (NEGATIVE); Leukocyte Esterase Urine UA TRACE (NEGATIVE); Nitrite Urine UA POSITIVE (Negative); Occult Blood Urine UA 3+ (Negative); Protein Urine UA 2+ (Negative); RBC Urine 5-10/HPF (0-5/HPF); Urobilinogen Urine UA 0.2 E.U./dL (0.2); WBC Urine 30-100/HPF (0-5/HPF); pH Urine UA 5.5 (4.5-8.0)
[2019-10-24 09:49] LABS: Bacteria Urine Many (>30); Culture Indicated Urine Specimen Cultured
--- NOTE | 2019-10-24 11:45 | PC.NURSE ---
At this time I spoke with caregiver at bedside and called the patient's mother to inform them of the patient's transfer to [facility].
[2019-10-24] MEDS: cephALEXin 250 MG CAPSULE 500 MG PO (11:50)
--- NOTE | 2019-10-27 17:00 | PC.NURSE ---
nurse from [facility] called to say the family is concerned they can't find the pt medications for seizures. I asked security to check lost and found.
--- NOTE | 2019-10-27 17:55 | PC.NURSE ---
Oswald, pt father let me know he [id number] the medications at home.
== END 2019-10-24 12:08 | disposition short-term general hospital (02) ==
PROVIDERS: Emergency Medicine; Emergency Provider Emergency Medicine
DX: R56.9 Unspecified convulsions (principal); R05 Cough; R79.89 Other specified abnormal findings of blood chemistry
CPT/HCPCS: 51701; 70450; 71045; 80053; 81001; 83690; 84145; 84146; 85025; 87077; 87086; 87186; 96365; 96366; 96367; 96375; 99282; 99284; J1953; J2060